=== PATIENT | male | born 1955 | race Two or more races ===

== ENCOUNTER 2023-03-16 08:34 | Outpatient (REF) | payer MEDICARE, SELFPAY ==
[2023-03-16 15:33] LABS: Prostate Specific Antigen 0.31 ng/mL (<0.05-4.0)
== END 2023-03-16 08:35 | disposition home or self-care (01) ==
LOC: HO.CHCLDS 08:34
PROVIDERS: Visit Provider Physician Assistant
DX: Z12.5 Encounter for screening for malignant neoplasm of prostate (principal); C61 Malignant neoplasm of prostate
CPT/HCPCS: 36415; 84153

== ENCOUNTER 2023-06-22 08:56 | Outpatient (REF) | payer MEDICARE, SELFPAY ==
[2023-06-22 15:10] LABS: Prostate Specific Antigen 0.31 ng/mL (<0.05-4.0)
[2023-06-22 15:18] LABS: Influenza A PCR NEGATIVE (Negative); Influenza B PCR NEGATIVE (Negative); Resp Syncy Virus RNA Qual PCR NEGATIVE (Negative); SARS COV2 PCR INHOUSE NEGATIVE (Negative)
== END 2023-06-22 08:57 | disposition home or self-care (01) ==
LOC: HO.CHCLDS 08:56
PROVIDERS: Family Medicine; Visit Provider Physician Assistant
DX: Z11.52 Encounter for screening for COVID-19 (principal); Z12.5 Encounter for screening for malignant neoplasm of prostate; Z20.822 Contact with and (suspected) exposure to COVID-19; J06.9 Acute upper respiratory infection, unspecified
CPT/HCPCS: 0241U; 36415; 84153

== ENCOUNTER 2023-11-08 09:15 | Outpatient (REF) | payer MEDICARE, SELFPAY ==
[2023-11-11 07:38] LABS: TS Negative Control Passed; TS Panel A 0; TS Panel B 0; TS Positive Control Passed; TSpotTB Negative (Negative)
== END 2023-11-08 09:16 | disposition home or self-care (01) ==
LOC: HO.CHCLDS 09:15
PROVIDERS: Visit Provider Family Medicine
DX: Z11.1 Encounter for screening for respiratory tuberculosis (principal)
CPT/HCPCS: 36415; 86481

== ENCOUNTER 2025-02-24 15:03 | Outpatient (AMB) | payer MEDICARE, SELFPAY ==
--- NOTE | 2025-02-24 15:40 | HO.NEPHOV ---
Vital Signs 02/24/25 15:47 Height 5 ft 11 in Weight 188 lb 8 oz BMI 26.3 BP 128/70 Blood Pressure Location Rt brachial Position Sitting Pulse 69 Pulse Source Pulse Oximeter Pulse Oximetry (%) 96 Oxygen Delivery Method Room Air Intake Visit Reasons: Previous Pt- Wrong # Interior Mechanic Required: No Accompanied by: Spouse Allergies No Known Allergies Allergy (Verified 02/19/25 10:10) Do you need a note to return to daycare/school/sports/work: No HPI Comments Details: Lorenzo was seen in follow up for diabetic nephropathy. He was accompanied by his . He has been followed closely followed by Endocrinology. He denies hypoglycemias. He is on ACEI. He is not on any SGLT2 i. He denies CAD, CVA, CHF, PAD, edema or carotid stenosis. He does not take any NSAID's and maintain good hydration. His serum potassium has been high normal. He did not have any specific complaints at the time of this office visit. [facility] Medical History (Updated 03/08/25 @ 14:28 by Tex Lynch MD) Nocturia Erectile dysfunction B12 deficiency Vitamin D deficiency CKD stage G2/A2, GFR 60-89 and albumin creatinine ratio 30-299 mg/g Bronchitis Epididymal cyst Spondylolisthesis at L5-S1 level DJD (degenerative joint disease) BPH (benign prostatic hyperplasia) Anxiety Depression Dyslipidemia GERD (gastroesophageal reflux disease) Gout Hypertension History of prostate cancer Obstructive sleep apnea Type 2 diabetes mellitus Review of Systems Const All systems reviewed & are unremarkable except as noted in HPI and below Physical Exam Vital Signs: Last Vital Signs Pulse 69 02/24/25 15:47 BP 128/70 02/24/25 15:47 Pulse Ox 96 02/24/25 15:47 Oxygen Delivery Method Room Air 02/24/25 15:47 BMI result Body Mass Index 26.3 Const General: comfortable and no acute distress Orientation/consciousness: patient oriented x3 HEENT Head: Yes normocephalic Mouth: Normal oral and palatal mucosa present Eyes EOM: EOMs intact bilaterally Neck Neck: Yes supple Resp Auscultation: clear to auscultation bilaterally Cardio Jugular venous distension: no JVD Rate: regular rate GI Palpation (GI): Soft to palpation Auscultation: normal bowel sounds General: Yes no CVA tenderness Back/Spine/Pelvis Back: no CVA tenderness Skin General skin exam: no rashes or lesions noted Neuro General: patient oriented x3 and moves all extremities Extrem General: Yes no pedal edema Assessment & Plan Assessment & Plan (1) Hypertension: Code(s): I10 - Essential (primary) hypertension Category: Medical Qualifiers: Hypertension type: primary hypertension Qualified Code(s): I10 - Essential (primary) hypertension (2) Diabetic nephropathy: Code(s): E11.21 - Type 2 diabetes mellitus with diabetic nephropathy Category: Medical Qualifiers: Diabetes mellitus type: type 2 Qualified Code(s): E11.21 - Type 2 diabetes mellitus with diabetic nephropathy Plan Lorenzo has Diabetic nephropathy. He is on ACEI. His serum K has been high normal. I plan to initiate him on Jardiance after cutting back on metformin at the next visit. He should maintain good hydration and continue to avoid NSAID's. All these have explained in detail. Follow up labs ordered and answered all questions. Orders: Orders Blood Urea Nitrogen 1 Month E11.21 - Type 2 diabetes mellitus with diabetic nephropathy, I10 - Essential (primary) hypertension Electrolytes 1 Month E11. - Type 2 diabetes mellitus with diabetic nephropathy, I10 - Essential (primary) hypertension Creatinine 1 Month E11.21 - Type 2 diabetes mellitus with diabetic nephropathy, I10 - Essential (primary) hypertension Coding Level of Care Code Est Pt Level 4 (27214) Diagnoses Primary hypertension I10 Hypertension type: primary hypertension Diabetic nephropathy associated with type 2 diabetes mellitus E11.21 Diabetes mellitus type: type 2
[2025-02-24 15:47] VITALS: BP 128/70; PULSE 69; O2SAT 96; BMI 26.3
--- OUTSIDE RECORDS SUMMARY | 2025-02-24 18:18 | XMS_ITS | Encounter Summary ---
Author Organization [employer] Address [address] [place] [address] Care Team Providers Care Tag Marker Name Role Phone Ofe Veras MD Primary Care Provider [phone] Encounter Details Date Type Department Care Team (Late st Contact Info) Description 10/05/2023 Abstract [facility] [address] [place], [place] [id number] Sobeida Self, ILIANA Social History Tobacco Use Types Packs/Day Years Used Date Smoking Tobacco: Never Passive Smoke Exposure: Never Smokeless Tobacco: Never Alcohol Use Standard Drinks/Week Comments Never 0 (1 standard drink = 0.6 oz pur e alcohol) Depression Answer Date Recorded Patient Health Questionnaire-9 Score 0 03/09/2023 Housing Stability Answer Date Recorded What is your housing situation today? I have humphrey finn 06/21/[address] you li ve. Do you have problems with any of the following? None of the above 06/21/2023 Food Insecurity Answer Date Recorded Within the past 12 months, y ou worried that your food would run out before you got money to buy more: Never True 06/21/2023 Within the past 12 months,th e food you bought just didn't last and you didn't have enough money to get more: Never True Transportation Answer Date Recorded In the past 12 months, has l ack of transportation kept you from medical appts, meetings, work or from getting things needed for daily living? No 06/21/2023 Utilities Answer Date Recorded In the past 12 months, has t he electric, gas, oil or water company threatened to shut off services in your home? No 06/21/2023 Depression Answer Date Recorded Patient Health Questionnaire-2 Score 0 03/09/2023 Sex and Gender Information Value Date Recorded Sex Assigned at Male 07/03/2022 10:30 AM EDT Legal Sex Male 10:30 AM EDT Gender Identity Male 07/03/2022 10:30 AM EDT Sexual Orientation Straight 07/03/2022 10 :30 AM EDT documented as of this encounter Plan of Treatment Not on file documented as of this encounter Visit Diagnoses Not on filedocumented in this encounter Additional Health Concerns Assessment Noted Time PHQ-9 Depression Total Score: 0 03/09/20 10:06 AM EDT documented as of this encounter Care Teams Tag Marker Relationship Specialty Start Date End Date Ofe Veras MD [address] [place] [address] PCP - General Family Medicine 12/22/22 02/18/24 documented as of this encounter
== END 2025-02-24 16:26 | disposition home or self-care (01) ==
LOC: HO.HKAS 15:04
PROVIDERS: Visit Provider Internal Medicine Nephrology
DX: I10 Essential (primary) hypertension (principal); E11.21 Type 2 diabetes mellitus with diabetic nephropathy
CPT/HCPCS: 99214

== ENCOUNTER → 2025-02-24 15:03 | Outpatient (BNVA) | payer MEDICARE, SELFPAY | PROVIDERS: Visit Provider Internal Medicine Nephrology | DX: I10 Essential (primary) hypertension (principal); E11.21 Type 2 diabetes mellitus with diabetic nephropathy | CPT/HCPCS: 99212 ==

== ENCOUNTER 2025-04-03 13:13 | Outpatient (AMB) | payer MEDICARE, SELFPAY ==
--- NOTE | 2025-04-03 12:51 | HO.NEPHOV ---
Vital Signs 04/03/25 13:38 Height 5 ft 11 in Weight 191 lb 6 oz BMI 26.7 BP 120/60 Blood Pressure Location Rt brachial Position Sitting Pulse 70 Pulse Source Pulse Oximeter Pulse Oximetry (%) 98 Oxygen Delivery Method Room Air Intake Visit Reasons: 6wk follow up- Wrong # [facility] Magistrate Required: No Accompanied by: Spouse Allergies No Known Allergies Allergy (Verified 04/03/25 13:38) HPI Comments Details: Lorenzo was seen in follow up for diabetic nephropathy and ongoing hyponatremia. He was accompanied by his . He has been followed closely followed by Endocrinology. He denies hypoglycemias, states sugars have been well-controlled. He is on ACEI. He is not on any SGLT2 i. He denies CAD, CVA, CHF, PAD, edema or carotid stenosis. He does not take any NSAID's and maintain good hydration. His serum potassium has been high normal. He did not have any specific complaints at the time of this office visit. states he has been drinking a litte more than 48 ounces of water daily, and then also drinks a few mugs of black coffee each day. He also has been taking naproxen for joint pin in his thumb and ankle. He denies new shortness of breath or other respiratory symptoms, denies new alcohol use, weight loss, fatigue/malaise, night sweats. He does note ongoing pain from joint pain, also has ongoing, chronic rib cage pain for a year or so. [facility] Medical History (Updated 04/03/25 @ 15:14 by Hafsa Mathew, SARAH, MEDICAL ADMINISTRATOR-BC) Nocturia Erectile dysfunction B12 deficiency Vitamin D deficiency CKD stage G2/A2, GFR 60-89 and albumin creatinine ratio 30-299 mg/g Bronchitis Epididymal cyst Spondylolisthesis at L5-S1 level DJD (degenerative joint disease) BPH (benign prostatic hyperplasia) Anxiety Depression Dyslipidemia GERD (gastroesophageal reflux disease) Gout Hypertension History of prostate cancer Obstructive sleep apnea Type 2 diabetes mellitus Review of Systems Const All systems reviewed & are unremarkable except as noted in HPI and below Physical Exam Const General: comfortable and no acute distress Orientation/consciousness: patient oriented x3 HEENT Head: Yes normocephalic Mouth: Normal oral and palatal mucosa present Eyes EOM: EOMs intact bilaterally Neck Neck: Yes supple Resp Auscultation: clear to auscultation bilaterally Cardio Jugular venous distension: no JVD Rate: regular rate GI Palpation (GI): Soft to palpation Auscultation: normal bowel sounds General: Yes no CVA tenderness Back/Spine/Pelvis Back: no CVA tenderness Skin General skin exam: no rashes or lesions noted Neuro General: patient oriented x3 and moves all extremities Extrem General: Yes no pedal edema Assessment & Plan Assessment & Plan (1) Hypertension: Code(s): I10 - Essential (primary) hypertension Category: Medical Qualifiers: Hypertension type: primary hypertension Qualified Code(s): I10 - Essential (primary) hypertension (2) Diabetic nephropathy: Code(s): E11.21 - Type 2 diabetes mellitus with diabetic nephropathy Category: Medical Qualifiers: Diabetes mellitus type: type 2 Qualified Code(s): E11.21 - Type 2 diabetes mellitus with diabetic nephropathy Plan Lorenzo has Diabetic nephropathy. He is on ACEI- advised continue lisinopril at current dose he is taking. His serum K has been high normal. Will cut metformin dose in half and start jardiance 10mg daily for renal protection He should maintain good hydration and continue to avoid NSAID's. Discussed he should cut down on free water intake- discussed total of 48 ounces of water daily, this should include both coffee and water. Advised he should stop taking naproxen, possibility this is stimulating inappropriate ADH release (pain may also be stimulating ADH). Advised to please get labs before next visit- will check urine sodium and urine osm. All these have explained in detail. Follow up labs ordered and answered all questions. Orders: Orders Sodium Urine Random Today E87.1 - Hypo-osmolality and hyponatremia Osmolality Urine 3 Weeks E87.1 - Hypo-osmolality and hyponatremia Basic Metabolic Panel 3 Weeks E87.1 - Hypo-osmolality and hyponatremia, N18.30 - Chronic kidney disease, stage 3 unspecified Medications: New empagliflozin 10 mg PO DAILY 90 tabs 1RF E11.21 - Type 2 diabetes mellitus with diabetic nephropathy, E11.9 - Type 2 diabetes mellitus without complications, N18.30 - Chronic kidney disease, stage 3 unspecified Changed From metformin 1,000 mg PO BID E11.9 - Type 2 diabetes mellitus without complications To metformin 500 mg (1/2 x 1,000 mg) PO BID 90 tabs 3RF 90 days E11.9 - Type 2 diabetes mellitus without complications Coding Level of Care Code Est Pt Level 3 (23308) Diagnoses Primary hypertension I10 Hypertension type: primary hypertension Diabetic nephropathy associated with type 2 diabetes mellitus E11.21 Diabetes mellitus type: type 2
--- OUTSIDE RECORDS SUMMARY | 2025-04-03 13:16 | XMS_ITS | Encounter Summary ---
Author Organization [employer] Address [address] [place] [address] [address] [place] [address] Care Team Providers Care Dental Ceramist Assistant Name Role Phone Ofe Veras MD Primary Care Provider [phone] Encounter Details Date Type Department Care Team (Latest Contact Info) Description 04/01/2019 Abstract [facility] Dental, Provider, DDS Social History Tobacco Use Types Packs/Day Years Used Date Smoking Tobacco: Never Assessed Sex and Gender Information Value Date Recorded Sex Assigned at Male 07/03/2022 10:30 AM EDT Legal Sex Male 10:30 AM EDT Gender Identity Male 07/03/2022 10:30 AM EDT Sexual Orientation Straight 07/03/2022 10 :30 AM EDT documented as of this encounter Plan of Treatment Not on file documented as of this encounter Visit Diagnoses Not on filedocumented in this encounter Care Teams Dental Ceramist Assistant Relationship Specialty Start Date End Date Ofe Veras MD [address] [place] [id number] PCP - General Family Medicine 12/22/22 02/18/24 documented as of this encounter
--- OUTSIDE RECORDS SUMMARY | 2025-04-03 13:16 | XMS_ITS | Patient Health Record ---
Author Organization Aldair Alvarado MD PA Address [address] [facility] [address] [address] [place] [id number] Care Team Providers Care Hot Tar Roofer Helper Name Role Phone Aldair Alvarado Primary Care Provider Allergies No Known Allergies Reason For Referral No Information Medications Medication SIG (Take, Route, Frequency, Duration) Notes Start Date End Date Status Basaglar KwikPen 100 UNIT/ML 10 units SQ at bed time; Duration: 90 days Active glipiZIDE 10 MG 1 tablet 30 minutes before breakfast Orally twice a day; Duration: 90 days Active Naproxen 500 MG TAKE 1 TABLET BY MANUEL TWICE A DAY; Duration: 30 Active Vitamin D-3 25 MCG (1000 UT) 1 capsule Orally Once a day Active FreeStyle Lite Test - one SQ Daily; Duration: 90 days NIDDM E11.65 Active Vitamin D3 2000 UNIT 1 tablet Orally Onc e a day; Duration: 90 days 11/14/2021 Active Insulin Pen Needle 32G X 4 MM one SQ q 6 hour PRN; Duration: 90 days Active Omeprazole 20 MG 1 capsule 30 minutes before morning meal Orally Once a day; Duration: 90 days Active metFORMIN HCl 1000 MG 1 tablet with a me al Orally twice a day; Duration: 90 days Active Lisinopril 10 MG 1 tablet Orally Once a day; Duration: 90 days Active FreeStyle Lancets - one S.Q. Daily; Duration: 90 days Active Tamsulosin HCl 0.4 MG 1 capsule Orally O nce a day; Duration: 90 days Active Simvastatin 20 MG 1 tablet in the evening Orally Once a day; Duration: 90 days Active Problems Problem Type SNOMED Code ICD Code Onset Dates Problem Status W/U Status Risk Notes Problem Erectile dysfunction (disorder) (282988822) Male erectile dysfunction, unspecified (N52.9) Active confirmed Problem Type II diabetes mellitus without complication (640452758) Type 2 diabetes mellitus without complications (E11.9) Active confirmed Problem Essential hypertension (39495823) Essential (primary) hypertension (I10) Active confirmed Problem Mixed hyperlipidemia (537916082) Mixed hyperlipidemia (E78.2) Active confirmed Problem Vitamin D deficiency (28726690) Vitamin D deficiency, unspecified (E55.9) Active confirmed Problem 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) Active confirmed Problem Osteoarthritis of knee (061224066) Bilateral primary osteoarthritis of knee (M17.0) Active confirmed Problem Anxiety disorder (644127187) 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) Active confirmed Problem Lower urinary tract symptoms due to benign prostatic hypertrophy (66813836934003) Benign prostatic hyperplasia with lower urinary tract symptoms (N40.1) Active confirmed Problem Gastro-esophageal reflux disease without esophagitis (375208763) Gastro-esophageal reflux disease without esophagitis (K21.9) Active confirmed Problem Chronic kidney disease stage 3A (disorder) (935158257) Chronic kidney disease, stage 3a (N18.31) Active confirmed Plan Of Treatment Pending Test Test Name Order Date X ray : Ankle, left 11/14/2021 TSH 11/14/2021 Microalb/Creat Ratio, Randm Ur US ABDOMINAL 11/14/2021 BASIC METABOLIC PANEL 11/14/2021 HEMOGLOBIN A1c 11/14/2021 HEMOGLOBIN A1c 11/21/2021 PSA, TOTAL 11/14/2021 CBC (INCLUDES DIFF/PLT) 11/14/2021 LIPID PANEL 11/14/2021 URINALYSIS REFLEX 11/14/2021 LS spine x-ray 11/14/2021 Liver Fuction test (LFT) 11/14/2021 T spine X-Ray 11/14/2021 Occult Blood, Fecal, IA (immunoassay) Insurance Providers Payer Name Payer Address Payer Phone Subscriber Number Group Number Insured Name Patient Relationship to Insured Coverage Start Date Coverage End Date Medicare Part B [address] [place] [phone] [id number] Lorenzo Russo Self - patient is the insured Medical (General) History Medical History History ICD Code Diabetes High cholesterol Hypertension Prostate problems Kidney disease Gout Surgical History Surgery Date(Month/Year) Hospitalization History Reason Date(Month/Year) Radiation for prostate cancer
--- OUTSIDE RECORDS SUMMARY | 2025-04-03 13:16 | XMS_ITS ---
Author Name [facility] Organization Unknown Care Team Organization Name Specialty Phone Email Start Date End Da te [facility] SHEKHAR MERINO [facility] [email or web address]/09/2023 4 [facility] Tabitha Mar Primary Care 07/11/202204/03 4
--- OUTSIDE RECORDS SUMMARY | 2025-04-03 13:16 | XMS_ITS | Clinical Summary ---
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 01/07/20 24 Active aspirin 81 mg EC tablet Take 1 Tablet by mouth daily. 12/05/19 24 Active naproxen (NAPROSYN) 500 mg tablet Take 1 Tablet by mouth 2 times daily (with meals). 10/06/19 23 Active cyanocobalamin (VITAMIN B-12) 1,000 mcg tabletIndicatio ns:B12 deficiency Take 1 tablet (1,000 mcg total) by mouth 1 (one) time each day. 90 each 3 10/24/19 25 026 Active cholecalciferol (VITAMIN D-3) 50 mcg (2,000 unit) tabletIndicatio ns:Vitamin D deficiency Take 1 tablet (2,000 Units total) by mouth 1 (one) time each day. 90 tablet 3 10/24/19 25 02/21/2 026 Active pen needle, diabetic 32 gauge x 32 needleIndicatio ns:Type 2 diabetes mellitus with diabetic microalbuminuri a, with long-term current use of insulin ([facility] V24, [facility] V28) Inject under the skin 1 (one) time each day. DX: E11.29 R80.9 100 each 2 02/04/20 25 Active metFORMIN (GLUCOPHAGE) 1,000 mg tablet Take 1 tablet (1,000 mg total) by mouth 2 (two) times a day with meals. 180 tablet 3 02/07/20 25 Active insulin glargine (Lantus Solostar U-100 Insulin) 100 unit/mL (3 mL) injection pen 10 units SC at [id number] units SC at bedtime 45 mL 3 02/07/20 25 Active freestyle (FreeStyle Lancets) 28 gauge lancets Use to test blood sugar 3 times daily. 300 each 3 02/07/20 25 Active glucose blood test strip Use to test blood sugar 3 times daily. 300 each 3 02/07/20 25 026 Active glipiZIDE (GLUCOTROL) 10 mg tablet Take 1 tabs BID with meals 180 tablet 3 02/07/20 25 Active simvastatin (ZOCOR) 20 mg tabletIndicatio ns:Hyperlipidem ia, unspecified Take 1 tablet (20 mg total) by mouth at bedtime. 90 tablet 1 03/10/20 25 Active lisinopriL (PRINIVIL,ZESTR IL) 10 mg tabletIndicatio ns:Essential (primary) hypertension Take 1 tablet (10 mg total) by mouth 1 (one) time each day. 90 tablet 1 03/10/20 25 Active tamsulosin (FLOMAX) 0.4 mg 24 hr capsule TAKE 1 CAPSULE BY MOUTH 1 TIME EACH DAY. 90 capsule 1 03/10/20 25 Active simvastatin (ZOCOR) 20 mg tabletIndicatio ns:Hyperlipidem ia, unspecified Take 1 tablet (20 mg total) by mouth at bedtime. 90 tablet 1 10/17/19 25 025 Discontinued(Re order) lisinopriL (PRINIVIL,ZESTR IL) 10 mg tabletIndicatio ns:Essential (primary) hypertension Take 1 tablet (10 mg total) by mouth 1 (one) time each day. 90 tablet 1 10/17/19 25 025 Discontinued(Re order) tamsulosin (FLOMAX) 0.4 mg 24 hr capsule Take 2 capsules (0.8 mg total) by mouth 1 (one) time each day. Capsules should be taken 30 minutes following the same meal each day. 90 capsule 02/05/20 25 025 Discontinued Active Problems Problem Noted Date Diagnosed Date DJD (degenerative joint disease) of knee 024 Mixed hyperlipidemia 06/03/2024 HTN (hypertension) 06/03/2024 YISEL (obstructive sleep apnea) 06/03/2024 Overview (06/03/2024): NOT TREATED (Jun 2019) [facility] Home Sleep Apnea Test: Date 05/11/2021; Wt 190#; BMI 28; KHUSHBOO (AHI) 10, AI 4; HI 6; Unclassified apneas 1; Obstructive apneas 20; Central apneas 0; Mixed apneas 0; hypopneas 32; average oxygen saturation 94% (lowest 76% without saturations <88% for 5% or more of study) - Obstructive Sleep Apnea - mild; mostly hypopneas and obstructive apneas; without sleep related hypoventilation by 2020 home sleep apnea test. Assessment & Plan (10/17/2024 12:33 PM EST): Referred to sleep medicine. He will benefit from a CPAP machine given his daytime tiredness/poor sleep. He is advised that treatment for sleep apnea is necessary to prevent complications such as worsening hypertension, neurological problems and respiratory problems. He expressed understanding Orders: CBC and differential; Future Ambulatory referral to Sleep Medicine; Future Spondylolisthesis at L5-S1 level 12/17/2023 BPH (benign prostatic hyperplasia) 07/04/2021 Assessment & Plan (10/17/2024 12:33 PM EST): Continue follow-up with urology group of [facility]. Continue tamsulosin 0.8 mg daily. Recent PSA was within normal limits which was done yesterday. Epididymal cyst 07/04/2021 Overview (06/03/2024): Right, follows w/ urology Dr. Garcia GERD (gastroesophageal reflux disease) Assessment & Plan (10/17/2024 12:33 PM EST): Patient self discontinued famotidine/omeprazole due to lack of symptoms. Will continue to monitor clinically Bronchitis 04/07/2021 CKD stage G2/A2, GFR 60-89 a nd albumin creatinine ratio 30-299 mg/g 02/25/2021 Assessment & Plan (10/17/2024 12:33 PM EST): GFR in Dec was 82. Well controlled Type 2 diabetes mellitus wit h renal complication ([facility] V24, [facility] V28) 02/25/2021 Vitamin D deficiency 06/04/2018 Assessment & Plan (10/17/2024 12:33 PM EST): Continue vitamin D daily Orders: Vitamin D 25 hydroxy; Future B12 deficiency 12/28/2017 Assessment & Plan (10/17/2024 12:33 PM EST): Will update labs to determine if he needs to continue/resume B12 supplements Orders: Vitamin B12; Future Depression with anxiety 01/12/2015 Erectile dysfunction 09/21/2014 Nocturia 09/21/2014 Type 2 diabetes mellitus wit h microalbuminuria ([facility] V24, [facility] V28) 09/21/2014 Assessment & Plan (10/17/2024 12:33 PM EST): Continue endocrinology follow-up. Continue metformin 1000 mg twice daily, glipizide 10 mg twice daily, insulin Lantus 10 units. He will return for repeat A1c next month. His last A1c in August was slightly elevated to 7.4 He has a history of microalbuminuria however there was no microalbuminuria on most recent testing done in August. Orders: Hemoglobin A1c; Future Resolved Problems Problem Noted Date Diagnosed Date Resolved Date Rectal bleed 03/23/2016 10/17/2024 Gout 10/08/2014 10/17/2024 Anxiety 09/21/2014 10/17/2024 Encounters Date Type Department Care Team Description 02/06/2025 9:30 AM EDT Office Visit Endocrinology [address] [phone] [place] Type 2 diabetes mellitus with other kidney complication, unspecified whether jail insulin use ([facility] V24, [facility] V28) (Primary Dx); Secondary hypertension; Mixed hyperlipidemia from Last 3 Months Immunizations Name Administration Dates Next Due Influenza Quadravalent, MDCK , 0.5ml, preservative free (Flucelvax) 6mo and older 09/18/2019,06/03/2018 Influenza trivalent, 0.5mL ( Fluzone High-dose) 65yo and older 08/01/2024,07/25/2023,06/05/2022,2020 Influenza trivalent, with preservative (Fluzone; Afluria) 6mo and older 07/30/2017,09/16/2014 Influenza, Unspecified 06/26/2022,2020,05/18/2016,2014 PPD Test 10/09/2018 [employer] SARS-CoV-2 COVID-19, mRNA, LNP-S, preservative free 12/29/2020,11/29/2020 Pneumococcal conjugate 13 va lent (Prevnar 13, PCV13) 2mo and older 06/22/2021,12/15/2015 Pneumococcal conjugate 20 va lent (Prevnar 20, PCV 20) 2mo and older 03/14/2024 Td Tetanus diptheria (Tdvax) 7yo and older 10/09/2018 Tdap Tetanus diptheria acell ular pertussis (Boostrix; Adacel) 7yo and older 04/14/2017 Zoster Live 01/19/2016 Surgical History Surgery Date Site/Laterality Comments OTHER SURGICAL HISTORY PROCEDURE: IL RPR TUNICA VAGINALIS HYDROCELE BOTTLE TYPE; COMMENT: right testicle HERNIA REPAIR PROCEDURE: HISTORICAL HERNIA REPAIR/ING; COMMENT: bilateral KNEE SURGERY Right PROCEDURE: HISTORICAL KNEE SURGERY OTHER SURGICAL HISTORY PROCEDURE: HISTORICAL ARM SURGERY COLONOSCOPY 2011 PROCEDURE: HISTORICAL COLONOSCOPY; COMMENT: Date approximate, negative examination performed in [place] by history. COLONOSCOPY 07/31/2016 PROCEDURE: HISTORICAL COLONOSCOPY; COMMENT: Mild radiation proctitis. CHOLECYSTECTOMY 01/08/2018 PROCEDURE: LAPAROSCOPY, CHOLECYSTECTOMY Medical History Medical History Date Comments Dyslipidemia DX:Dyslipidemia HTN (hypertension) DX:HTN (hyper tension) Anxiety 09/21/2014 DX:Anxiety Nocturia 09/21/2014 DX:Nocturia Erectile dysfunction 09/21/2014 DX:Erectile dysfunction Hypertriglyceridemia 09/21/2014 DX:Hypertri glyceridemia DM (diabetes mellitus), type 2 with peripheral vascular complications ([facility], [facility]) 09/21/2014 DX:DM (diabetes mellitus), type 2 with peripheral vascular complications (HCC) Gout 10/08/2014 DX:Gout DJD (degenerative joint disease) of knee DX:DJD (degenerative joint disease) of knee YISEL (obstructive sleep apnea) DX :YISEL (obstructive sleep apnea) Bronchitis 04/07/2021 DX:Bronchitis GERD (gastroesophageal reflux disease) DX:GERD (gastroesophageal reflux disease) BPH (benign prostatic hyperplasia) 07/04/2021 DX:BPH (benign prostatic hyperplasia) B12 deficiency 12/28/2017 DX:B12 deficienc y CKD (chronic kidney disease) stage 3, GFR 30-59 ml/min ([facility], [facility] V[facility]) 02/25/2021 DX:CKD (chroni c kidney disease) stage 3, GFR 30-59 ml/min ([facility]) Depression with anxiety 01/12/2015 DX:Depre ssion with anxiety Normocytic anemia 01/19/2017 DX:Normocytic anemia 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 Garcia Rectal bleed 03/23/2016 Family History Medical History Relation Name Comments Prostate cancer Father Cataracts Mother Diabetes Mother Glaucoma Mother Skin cancer Mother Blindness Neg Hx Colon cancer Neg Hx Macular degeneration Neg Hx Strabismus Neg Hx Relation Name Status Comments Father Maternal Grandfather Maternal Grandmother Mother Paternal Grandfather Paternal Grandmother Social History Tobacco Use Types Packs/Day Years Used Date Smoking Tobacco: Never Smokeless Tobacco: Never Alcohol Use Standard Drinks/Week Comments No 0 (1 standard drink = 0.6 oz pur e alcohol) Housing Instability Answer Date Recorde d Are you worried that in the next 2 months you may not have stable housing? No 10/17/2024 Food Access & Nutrition Answer Date Rec orded Do you have access to a vari ety of food including fruits and vegetables? No 10/17/2024 Health Literacy Answer Date Recorded How often do you need to hav e someone help you when you read instructions, pamphlets, or other written material from your doctor or pharmacy? Never 10/17/2024 Caregiver: How often do you need to have someone help you when you read instructions, pamphlets, or other written material from your doctor or pharmacy? Not on file 10/17/2024 Financial Risk Answer Date Recorded How hard is it for you to pa y for the very basics like food, housing, medical care, and air conditioning / heating? Not very hard 10/17/2024 Transportation Answer Date Recorded Has the lack of transportati on kept you from meetings, work, or from getting things needed for daily living? No Has the lack of transportati on kept you from medical appointments or from getting medications? No 10/17/2024 Social Isolation Answer Date Recorded How often do you feel lonely or isolated from th ose around you? Never 10/17/2024 Food Risk Answer Date Recorded Within the past 12 months we worried whether our food would run out before we got money to buy more. Never true 10/17/2024 Within the past 12 months th e food we bought just didn't last and we didn't have money to get more. Never true 10/17/2024 Dependent Care Answer Date Recorded Do you need help finding or paying for care for your loved ones. For example, childbirth and infant care teacher or elderly care for an older adult? No 10/17/2024 Education Answer Date Recorded Do you think completing more education or training, like finishing a GED, going to college, or learning a trade, would be helpful for you? No 10/17/2024 Employment and Income Answer Date Recor ded During the last four weeks, have you been actively looking for work? No 10/17/2024 Living Situation Answer Date Recorded What is your living situation? 0 10/17/2024 Sex and Gender Information Value Date Recorded Sex Assigned at Male 09/05/2024 5:56 PM EST Legal Sex Male 11:12 AM EST Gender Identity Male 09/05/2024 5:56 PM EST Sexual Orientation Straight 09/05/2024 5: 56 PM EST Obstetrics History Last Filed Vital Signs Vital Sign Reading Time Taken Comments Blood Pressure 118/64 02/06/2025 9:59 AM EDT C Pulse 67 02/06/2025 9:59 AM EDT Temperature 36.4 C (97.5 F) 02/06/2025 9:59 AM EDT Respiratory Rate 17 10/17/2024 8:56 AM EST Oxygen Saturation 97% 08/08/2024 10:09 AM EST Inhaled Oxygen Concentration - - Weight 84.6 kg (186 lb 9.6 oz) 02/06/2025 9:59 A M EDT Height 180.3 cm (5' 11 ) 02/06/2025 9:59 AM EDT Body Mass Index 26.03 02/06/2025 9:59 AM EDT Plan of Treatment Upcoming Encounters Date Type Department Care Team (Late st Contact Info) Description 04/29/2025 2:30 PM EDT Office Visit Adult Medicine [address] [phone] Susan Graves PA [address] [place] [address] 05/26/2025 9:30 AM EDT Office Visit Orthopedic Surgery [facility] [address] [phone] Jarret Mcdowell, DPM [address] [address] Health Maintenance Due Date Last Done Comments Zoster Vaccines (1 of 2) 03/15/2016 01/19/2016 Medicare Annual Wellness Visit 08/12/2022 Falls Risk Assessment 03/14/2025 03/14/2024 Influenza Vaccine (#1) 2025 , 07/25/2023, 06/26/2022, Additional history exists Diabetes: Annual Foot Exam 06/17/2025 06/17/2024 Diabetes: Annual Retina Eye Exam 07/22/2025 07/22/2024, 08/15/2023 Diabetes: Blood Sugar Control Test (HGBA1C) 08/08/2025 02/06/2025, 08/15/2024, 06/16/2024, Additional history exists Social Influencers of Health Screening 10/17/2025 10/17/2024 Diabetes: Annual Urine Albumin-Creatinine Ratio (uACR) 02/06/2026 02/06/2025, 08/15/2024, 12/07/2023, Additional history exists Diabetes: Annual GFR (Glomerular Filtration Rate) 03/27/2026 03/27/2025, 02/06/2025, 08/15/2024, Additional history exists Hypertension/CHF/CAD Annual BMP Blood Test 03/27/2026 03/27/2025, 02/06/2025, 08/15/2024, Additional history exists Colorectal Cancer Screening: FIT-DNA (Cologuard) 08/02/2026 08/02/2023, 08/02/2023 DTaP,Tdap,and Td Vaccines (3 - Td or Tdap) 10/09/2028 10/09/2018, 04/14/2017 Cholesterol Screening (Lipid Panel) 02/06/2030 02/06/2025, 08/15/2024, 12/07/2023, Additional history exists Hepatitis C Screening Completed 09/17/2014 COVID-19 Vaccine Discontinued 12/29/2020, 11/29/2020 Pneumococcal Vaccine: 50+ Years Completed 03/14/2024, 06/22/2021, 12/15/2015 Depression Screening Completed 10/17/2024 HIB Vaccines Aged Out No longer eligi ble based on patient's age to complete this topic HPV Vaccines Aged Out No longer eligi ble based on patient's age to complete this topic Hepatitis A Vaccines Aged Out No long er eligible based on patient's age to complete this topic Hepatitis B Vaccines Aged Out No long er eligible based on patient's age to complete this topic IPV Vaccines Aged Out No longer eligi ble based on patient's age to complete this topic MMR Vaccines Aged Out No longer eligi ble based on patient's age to complete this topic Meningococcal ACWY Vaccine Aged Out N o longer eligible based on patient's age to complete this topic Meningococcal B Vaccine Aged Out No l onger eligible based on patient's age to complete this topic RSV Immunization Adult Patients Discontinued RSV Immunization Patients Under 20 months Aged Out No longer eligible based on patient's age to complete this topic Varicella Vaccines Aged Out No longer eligible based on patient's age to complete this topic Procedures Procedure Name Priority Date/Time Associated Diagnosis Comments CREATININE, SERUM Routine 03/27/2025 1:4 7 PM EDT Diabetic kidney ([facility], [facility] V28) Primary hypertension ELECTROLYTE PANEL Routine 03/27/2025 1:4 7 PM EDT Diabetic kidney ([facility] V24, [facility] V28) Primary hypertension BUN Routine 03/27/2025 1:47 PM EDT Diabetic kidney ([facility], [facility] V28) Primary hypertension THYROXINE FREE Routine 02/20/2025 8:06 AM EDT Hyponatremia THYROID STIMULATING HORMONE Routine 02/20/2025 8:06 AM EDT Hyponatremia ACTH Routine 02/20/2025 8:06 AM EDT Hyponatremia CORTISOL Routine 02/20/2025 8:06 AM EDT Hyponatremia SODIUM Routine 02/17/2025 10:44 AM EDT Low sodium levels CBC WITH AUTO DIFFERENTIAL Routine 02/06/2025 10:26 AM EDT YISEL (obstructive sleep apnea) CBC AND DIFFERENTIAL Routine 02/06/2025 10:26 AM EDT YISEL (obstructive sleep apnea) HEMOGLOBIN A1C Routine 02/06/2025 10:26 AM EDT Type 2 diabetes mellitus with other kidney complication, unspecified whether terminal system operator insulin use ([facility], [facility] V28) BASIC METABOLIC PANEL Routine 02/06/2025 10:26 AM EDT Type 2 diabetes mellitus with other kidney complication, unspecified whether jail insulin use ([facility], [facility] V28) LIPID PANEL WITH REFLEX TO DIRECT LDL Routine 02/06/2025 10:26 AM EDT Type 2 diabetes mellitus with other kidney complication, unspecified whether jail insulin use ([facility], [facility] V28) MICROALBUMIN CREATININE URINE RATIO Routine 02/06/2025 10:26 AM EDT Type 2 diabetes mellitus with other kidney complication, unspecified whether terminal system operator insulin use ([facility], [facility] V28) POC GLUCOSE Routine 02/06/2025 10:02 AM EDT Type 2 diabetes mellitus with other kidney complication, unspecified whether terminal system operator insulin use ([facility], [facility]) FALLS RISK ASSESSMENT Routine 03/14/2024 DIABETES EYE EXAM Routine 08/15/2023 FIT-DNA Routine 08/02/2023 HEPATITIS C SCREENING Routine 09/17/2014 from Last 3 Months or Most Recently Relevant to Health Maintenance Results * Creatinine (03/27/2025 1:47 PM EDT) Creatinine 1.14 0.70 - 1.30 mg/dL LAB CHEMISTRY METHOD 03/27/2025 5:36 PM EDT [facility] eGFR 69 >=60 mL/min/1. 73m2 LAB CHEMISTRY METHOD 03/27/2025 5:36 PM EDT [facility] Comment:Calculation based on the Chronic Kidney Disease Epidemiology Collaboration (CKD-EPI) equation refit without adjustment for race. Blood Venous blood specimen / Unknown Venipuncture / Unknown 03/27/2025 1:47 PM EDT 03/27/2025 2:50 PM EDT us Tex Lynch MD LAB BLOOD ORDERABLES Final Resul t Performing Organization Address [facility]/ZIP Co de Phone Number [facility] [address] [place] [address], [place] [phone] * BUN (03/27/2025 1:47 PM EDT) BUN 21 5 - 25 mg/dL LAB CHEMISTRY METHOD 03/27/2025 5:36 PM EDT [facility] Blood Venous blood specimen / Unknown Venipuncture / Unknown 03/27/2025 1:47 PM EDT 03/27/2025 2:50 PM EDT us Tex Lynch MD LAB BLOOD ORDERABLES Final Resul t Performing Organization Address [facility] de Phone Number [facility] [address] [place] [address], [place] [phone] * (ABNORMAL) Electrolyte panel (03/27/2025 1:47 PM EDT) Sodium 130(L) 133 - 145 mmol/L LAB CHEMISTRY METHOD 03/27/2025 5:36 PM EDT [facility] Potassium 4.4 3.5 - 5.5 mmol/L LAB CHEMISTRY METHOD 03/27/2025 5:36 PM EDT [facility] Chloride 96 96 - 110 mmol/L LAB CHEMISTRY METHOD 03/27/2025 5:36 PM EDT [facility] CO2 26 21 - 32 mmol/L LAB CHEMISTRY METHOD 03/27/2025 5:36 PM EDT [facility] Anion Gap 8 3 - 11 LAB CHEMISTRY METHOD 03/27/2025 5:36 PM EDT [facility] Blood Venous blood specimen / Unknown Venipuncture / Unknown 03/27/2025 1:47 PM EDT 03/27/2025 2:50 PM EDT us Tex Lynch MD LAB BLOOD ORDERABLES Final Resul t Performing Organization Address City/[facility]/ZIP Co de Phone Number [facility] [address] [place] [address], [place] [phone] * ACTH (02/20/2025 8:06 AM EDT) Adrenocorticotropic Hormone (ACTH) 10 <=46 pg/mL 02/23/2025 3:48 PM EDT [facility] Comment: Test performed at [facility], [address] , [place] [address] Yancy Hall MD, PhD - [employer] Consultant Blood Venous blood specimen / Unknown Venipuncture / Unknown 02/20/2025 8:06 AM EDT 02/20/2025 8:21 AM EDT Fili Titus MD LAB BLOOD ORDERABLES Final Res ult Performing Organization Address [facility]/ZIP Co de Phone Number [facility] [address] [place] [address] * Thyroid stimulating hormone (02/20/2025 8:06 AM EDT) Pathologist [facility] TSH 1.58 0.40 - 4.00 mcIU/mL LAB CHEMISTRY METHOD 02/20/2025 10:10 AM EDT [facility] Blood Venous blood specimen / Unknown Venipuncture / Unknown 02/20/2025 8:06 AM EDT 02/20/2025 8:20 AM EDT Fili Titus MD LAB BLOOD ORDERABLES Final Res ult [facility] [address] [place] [address], [place] [phone] * Thyroxine free (02/20/2025 8:06 AM EDT) Free T4 1.17 0.70 - 1.80 ng/dL LAB CHEMISTRY METHOD 02/20/2025 10:10 AM EDT [facility] Blood Venous blood specimen / Unknown Venipuncture / Unknown 02/20/2025 8:06 AM EDT 02/20/2025 8:20 AM EDT Fili Titus MD LAB BLOOD ORDERABLES Final Res ult Performing Organization Address [facility]/ZIP Co de Phone Number [facility] [address] [place] [address], [place] [phone] * Cortisol (02/20/2025 8:06 AM EDT) Cortisol 14.5 mcg/dL LAB CHEMISTRY METHOD 02/20/2025 10:10 AM EDT [facility] Blood Venous blood specimen / Unknown Venipuncture / Unknown 02/20/2025 8:06 AM EDT 02/20/2025 8:20 AM EDT Narrative [facility] - 02/20/2025 10:10 AM EDT CORTISOL REFERENCE RANGE 8 AM SPEC: 5.0-23.0 mcg/dL 4 PM SPEC: 3.0-16.0 mcg/dL 8 PM SPEC: <5.0 mcg/dL Fili Titus MD LAB BLOOD ORDERABLES Final Res ult Performing Organization Address City/[facility]/ZIP Co de Phone Number [facility] [address] [place] [address], [place] [phone] * (ABNORMAL) Sodium (02/17/2025 10:44 AM EDT) Sodium 130(L) 133 - 145 mmol/L LAB CHEMISTRY METHOD 02/17/2025 2:35 PM EDT [facility] Blood Venous blood specimen / Unknown Venipuncture / Unknown 02/17/2025 10:44 AM EDT 02/17/2025 10:44 AM EDT Gaby CANAS LAB BLOOD ORDERABLES Final Result [facility] [address] [place] [address], [place] [phone] * Lipid panel with reflex to direct LDL (02/06/2025 10:26 AM EDT) Cholesterol 138 0 - 200 mg/dL LAB CHEMISTRY METHOD 02/06/2025 2:29 PM EDT [facility] Triglycerides 139 0 - 150 mg/dL LAB CHEMISTRY METHOD 02/06/2025 2:29 PM EDT [facility] HDL 43 >=40 mg/dL LAB CHEMISTRY METHOD 02/06/2025 2:29 PM EDT [facility] LDL Calculated 67 0 - 100 mg/dL LAB CHEMISTRY METHOD 02/06/2025 2:29 PM EDT [facility] VLDL Cholesterol [place] 27.8 mg/dL LAB CHEMISTRY METHOD 02/06/2025 2:29 PM EDT [facility] Non HDL Chol. (LDL+VLDL) 95 <145 mg/dL LAB CHEMISTRY METHOD 02/06/2025 2:29 PM EDT [facility] Chol/HDL Ratio 3.2 0.0 - 4.4 LAB CHEMISTRY METHOD 02/06/2025 2:29 PM EDT [facility] Blood Venous blood specimen / Unknown Venipuncture / Unknown 02/06/2025 10:26 AM EDT 02/06/2025 10:26 AM EDT Gaby CANAS LAB BLOOD ORDERABLES Final Result [facility] [address] [place] [address], [place] [phone] * (ABNORMAL) CBC auto differential (02/06/2025 10:26 AM EDT) WBC 6.1 4.8 - 10.8 K/mcL LAB HEMETOLOGY METHOD 02/06/2025 12:23 PM [facility] RBC 4.80 4.50 - 5.50 M/mcL LAB HEMETOLOGY METHOD 02/06/2025 12:23 PM [facility] Hemoglobin 13.9 13.5 - 17.5 g/dL LAB HEMETOLOGY METHOD 02/06/2025 12:23 PM [facility] Hematocrit 41.7(L) 42.0 - 54.0 % LAB HEMETOLOGY METHOD 02/06/2025 12:23 PM [facility] MCV 87.4 79.0 - 98.0 FL LAB HEMETOLOGY METHOD 02/06/2025 12:23 PM [facility] MCH 29.1 27.0 - 32.0 pcg LAB HEMETOLOGY METHOD 02/06/2025 12:23 PM [facility] MCHC 33.3 32.0 - 37.0 g/dL LAB HEMETOLOGY METHOD 02/06/2025 12:23 PM [facility] RDW 13.0 11.0 - 15.0 % LAB HEMETOLOGY METHOD 02/06/2025 12:23 PM [facility] Platelets 250 130 - 400 K/mcL LAB HEMETOLOGY METHOD 02/06/2025 12:23 PM [facility] MPV 9.2 7.0 - 11.0 FL LAB HEMETOLOGY METHOD 02/06/2025 12:23 PM [facility] NRBC 0.0 <1.0 % LAB HEMETOLOGY METHOD 02/06/2025 12:23 PM [facility] NRBC Absolute 0.00 <0.10 K/mcL LAB HEMETOLOGY METHOD 02/06/2025 12:23 PM [facility] Neutrophils Relative 70.3 % LAB HEMETOLOGY METHOD 02/06/2025 12:23 PM [facility] Lymphocytes Relative 20.3 % LAB HEMETOLOGY METHOD 02/06/2025 12:23 PM [facility] Monocytes Relative 8.2 % LAB HEMETOLOGY METHOD 02/06/2025 12:23 PM [facility] Eosinophils Relative 0.7 % LAB HEMETOLOGY METHOD 02/06/2025 12:23 PM [facility] Basophils Relative 0.3 % LAB HEMETOLOGY METHOD 02/06/2025 12:23 PM [facility] Immature Granulocytes Relative 0.2 % LAB HEMETOLOGY METHOD 02/06/2025 12:23 PM [facility] Neutrophils Absolute 4.30 1.50 - 7.00 K/mcL LAB HEMETOLOGY METHOD 02/06/2025 12:23 PM [facility] Lymphocytes Absolute 1.24 1.00 - 5.00 K/mcL LAB HEMETOLOGY METHOD 02/06/2025 12:23 PM [facility] Monocytes Absolute 0.50 0.20 - 1.00 K/mcL LAB HEMETOLOGY METHOD 02/06/2025 12:23 PM [facility] Eosinophils Absolute 0.04 0.00 - 0.50 K/mcL LAB HEMETOLOGY METHOD 02/06/2025 12:23 PM [facility] Basophils Absolute 0.02 0.00 - 0.20 K/mcL LAB HEMETOLOGY METHOD 02/06/2025 12:23 PM [facility] Immature Granulocytes Absolute 0.01 0.00 - 0.03 K/mcL LAB HEMETOLOGY METHOD 02/06/2025 12:23 PM [facility] Blood Venous blood specimen / Unknown Venipuncture / Unknown 02/06/2025 10:26 AM EDT 02/06/2025 10:26 AM EDT Jelena Olsen MD LAB BLOOD ORDERA BLES Final Result Performing Organization Address [facility]/ZIP Co de Phone Number [facility] [address] [place] [address], * (ABNORMAL) Microalbumin creatinine urine ratio (02/06/2025 10:26 AM EDT) Creatinine, Urine 137.0 mg/dL LAB CHEMISTRY METHOD 02/06/2025 1:31 PM EDT [facility] Microalb, Ur 119.0(H) 0.0 - 29.0 mg/L LAB CHEMISTRY METHOD 02/06/2025 1:31 PM EDT [facility] Microalb/Crea t Ratio 87(H) <30 mg/g creat LAB CHEMISTRY METHOD 02/06/2025 1:31 PM EDT [facility] Urine Urine specimen from urethra / Unknown Non-blood Collection / Unknown 02/06/2025 10:26 AM EDT 02/06/2025 10:26 AM EDT Gaby CANAS LAB URINE ORDERABLES Final Result Performing Organization Address [facility]/ZIP Co de Phone Number [facility] [address] [place] [address], [place] [phone] * (ABNORMAL) Hemoglobin A1c (02/06/2025 10:26 AM EDT) Hemoglobin A1C 7.0(H) <6.5 % LAB CHEMISTRY METHOD 02/06/2025 9:29 PM EDT [facility] Mean Bld Glu Estim. 154 mg/dL LAB CHEMISTRY METHOD 02/06/2025 9:29 PM EDT [facility] Blood Venous blood specimen / Unknown Venipuncture / Unknown 02/06/2025 10:26 AM EDT 02/06/2025 10:26 AM EDT us Gaby CANAS LAB BLOOD ORDERABLES Final Result [facility] [address] [place] [address], [place] [phone] * (ABNORMAL) Basic metabolic panel (02/06/2025 10:26 AM EDT) Pathologist [facility] Sodium 132(L) 133 - 145 mmol/L LAB CHEMISTRY METHOD 02/06/2025 2:29 PM [facility] Potassium 4.6 3.5 - 5.5 mmol/L LAB CHEMISTRY METHOD 02/06/2025 2:29 PM [facility] Chloride 100 96 - 110 mmol/L LAB CHEMISTRY METHOD 02/06/2025 2:29 PM [facility] CO2 23 21 - 32 mmol/L LAB CHEMISTRY METHOD 02/06/2025 2:29 PM [facility] Anion Gap 9 3 - 11 LAB CHEMISTRY METHOD 02/06/2025 2:29 PM [facility] Glucose 127(H) 70 - 100 mg/dL LAB CHEMISTRY METHOD 02/06/2025 2:29 PM [facility] BUN 15 5 - 25 mg/dL LAB CHEMISTRY METHOD 02/06/2025 2:29 PM [facility] Creatinine 1.08 0.70 - 1.30 mg/dL LAB CHEMISTRY METHOD 02/06/2025 2:29 PM [facility] eGFR 74 >=60 mL/min/1. 73m2 LAB CHEMISTRY METHOD 02/06/2025 2:29 PM [facility] Comment:Calculation based on the Chronic Kidney Disease Epidemiology Collaboration (CKD-EPI) equation refit without adjustment for race. BUN/Creatinine Ratio 13.9 LAB CHEMISTRY METHOD 02/06/2025 2:29 PM EDT [facility] Calcium 9.7 8.5 - 10.5 mg/dL LAB CHEMISTRY METHOD 02/06/2025 2:29 PM EDT [facility] Blood Venous blood specimen / Unknown Venipuncture / Unknown 02/06/2025 10:26 AM EDT 02/06/2025 10:26 AM EDT Gaby CANAS LAB BLOOD ORDERABLES Final Result [facility] [address] [place] [address], [place] [phone] * POC glucose manually resulted (02/06/2025 10:02 AM EDT) [facility] Glucose POC 131 mg/dL Comment:Non Fasting Blood Capillary blood specimen / Unknown 02/06/2025 10:02 AM EDT Result [facility] Gaby CANAS POINT OF CARE TEST ENTER/ED IT ORDERABLES Final Result * Falls Risk Assessment (03/14/2024) [facility] Falls Risk Assessment Abstracted Result [facility] Historical Provider HEALTH MAINTENANCE Final Result * Diabetes Eye Exam (08/15/2023) [facility] Diabetes: Annual Retina Eye Exam AbstractedAbstracted Result [facility] Historical Provider HEALTH MAINTENANCE Final Result * FIT-DNA (Cologuard) (08/02/2023) [facility] Colorectal Cancer Screening: FIT-DNA (Cologuard) No Interpretatio n, Abstraced Result [facility] Historical Provider HEALTH MAINTENANCE Final Result * Hepatitis C Screening (09/17/2014) [facility] Hepatitis C Screening Abstracted Result [facility] Historical Provider HEALTH MAINTENANCE Final Result from Last 3 Months or Most Recently Relevant to Health Maintenance Insurance [employer] MEDICARE [employer]VANTAGE 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
--- OUTSIDE RECORDS SUMMARY | 2025-04-03 13:16 | XMS_ITS | Clinical Summary ---
Author Organization [facility] Address [address] [place] [address] Phone Care Team Providers Care Global Process Owner Name Role Phone Ofe Veras MD Primary Care Provider [phone] Allergies No known active allergies Medications cholecalciferol (VITAMIN D-3) 25 MCG (1000 UT) tablet Take 1 tablet by mouth 1 (one) time each day 11/02/2020 Active omeprazole (PriLOSEC) [address] capsule Take 1 capsule by mouth 2 (two) times a day 09/27/2020 Active tamsulosin (FLOMAX) 0.4 MG 24 hr capsule Take 1 capsule by mouth 1 (one) time each day 11/09/2020 Active insulin glargine (Lantus SoloStar) 100 UNIT/ML injection Inject 10 Units under the skin every night 08/04/2020 Active aspirin (ST SHIRLEY) 81 MG EC tablet Take 1 tablet by mouth 1 (one) time each day 08/04/2020 Active lisinopril (PRINIVIL,ZESTR IL) 10 MG tablet Take 1 tablet by mouth 1 (one) time each day 11/09/2020 Active metFORMIN (GLUCOPHAGE) 1000 MG tablet Take 1 tablet by mouth 2 (two) times a day with meals 11/09/2020 Active simvastatin (ZOCOR) 20 MG tablet Take 1 tablet by mouth 1 (one) time each day in the evening 11/09/2020 Active Dulaglutide (Trulicity) 1.5 MG/0.5ML solution pen-injector Inject under the skin Active Active Problems Problem Noted Date Diagnosed Date History of SARS-CoV-2 10/14/2021 Overview (03/30/2022): DX: 09/2021. Benign prostatic hyperplasia 07/04/2021 Cyst of epididymis 07/04/2021 Overview (03/30/2022): Right, follows w/ urology Dr. Garcia Gastroesophageal reflux disease 07/04/2021 Bronchitis 04/07/2021 Stage 3a chronic kidney disease 03/09/2021 Hypertension 03/09/2021 Simple renal cyst 03/09/2021 Hypertensive disorder 01/18/2021 Obstructive sleep apnea syndrome 01/18/2021 Overview (03/30/2022): NOT TREATED (Jun 2019) NOT TREATED (Jun 2019) [facility] Home Sleep Apnea Test: Date [...] hypoventilation by 2020 home sleep apnea test. Chronic kidney disease 01/18/2021 Type 2 diabetes mellitus 09/21/2014 Resolved Problems Problem Noted Date Diagnosed Date Resolved Date Dyslipidemia 01/18/2021 01/18/2021 Osteoarthritis of knee 01/18/202101/18 Vitamin D deficiency 06/04/2018 021 Cobalamin deficiency 12/28/2017 021 Normocytic anemia 01/19/2017 01/18/2021 History of malignant neoplasm of prostate 08/08/2016 01/18/2021 Rectal hemorrhage 03/23/2016 01/18/2021 Mixed anxiety and depressive disorder 01/12/2015 01/18/2021 Gout 10/08/2014 01/18/2021 Anxiety 09/21/2014 01/18/2021 Erectile dysfunction 09/21/2014 021 Nocturia 09/21/2014 01/18/2021 Immunizations Immunization Administration Dates Next Due Influenza TIV (IM) 07/30/2017,09/16/2014 Influenza, MDCK, PF, Quadrivalent 09/18/2019,09/2017 Influenza, Unspecified 05/25/2021,05/18/2016,04/2015 PPD Test 10/09/2018 Pfizer SARS-COV-2 12/29/2020,11/29/2020 Pneumococcal Conjugate 13-Valent 06/22/2021,12/02 Td 10/09/2018 Zoster 01/19/2016 Family History Medical History Relation Comments Cancer Brother Prostate cancer Cancer Father Prostate cancer Hypertension Father Diabetes Mother Heart disease Mother Relation Status Comments Brother Father Mother Social History Tobacco Use Types Packs/Day Years Used Date Smoking Tobacco: Never Smokeless Tobacco: Never Tobacco Cessation:Counseling Given: Not Answered Alcohol Use Standard Drinks/Week Comments Never 0 (1 standard drink = 0.6 oz pur e alcohol) Sex and Gender Information Value Date Recorded Sex Assigned at Not on file Legal Sex Male 9:40 AM EDT Gender Identity Not on file Sexual Orientation Not on file Last Filed Vital Signs Vital Sign Reading Time Taken Comments Blood Pressure 120/60 05/08/2023 3:30 PM EDT Pulse 86 05/08/2023 3:30 PM EDT Temperature - - Respiratory Rate - - Oxygen Saturation 97% 03/09/2021 10:17 AM EDT Inhaled Oxygen Concentration - - Weight 82.6 kg (182 lb 3.2 oz) 05/08/2023 3:30 P M EDT Height - - Body Mass Index - - Plan of Treatment Health Maintenance Due Date Last Done Comments Colorectal Cancer Screening: Annual FOBT 2003 Colorectal Cancer Screening: Colonoscopy 2003 Colorectal Cancer Screening: Sigmoidoscopy 2003 Diabetes: Ophthalmology Exam 12/08/2020 01/03/2017, 10/27/2015, 10/01/2014 Diabetes: Pedal Pulse Checked 12/08/2020 Diabetes: Sensory Foot Exam 12/08/2020 Diabetes: Visual Foot Exam 12/08/2020 Pneumococcal Vaccine: 50+ Years (2 of 2 - PPSV23, PCV20, or PCV21) 08/17/2021 06/22/2021, 12/15/2015 Influenza Vaccine (#1) 2025 4, 07/25/2023, 06/26/2022, Additional history exists Diabetes: Hemoglobin A1C 05/09/2025 025, 11/21/2023, 02/28/2022, Additional history exists Pneumococcal Vaccine: Peds (0 to 5 Years) and At-Risk Patients (6 to 49 Years) Discontinued 06/22/2021, 12/15/2015 Hepatitis B Vaccine Aged Out No longe r eligible based on patient's age to complete this topic Insurance [facility] MCR ([id number]) [facility] MCR ([id number]) Care Teams Global Process Owner Relationship Specialty Start Date End Date Ofe Veras MD [address] [place] [id number] PCP - General Family Medicine 05/08/23
[2025-04-03 13:38] VITALS: BP 120/60; PULSE 70; O2SAT 98; BMI 26.7
== END 2025-04-03 14:01 | disposition home or self-care (01) ==
LOC: HO.HKA 13:14
PROVIDERS: Visit Provider Internal Medicine Nephrology
DX: I10 Essential (primary) hypertension (principal); E11.21 Type 2 diabetes mellitus with diabetic nephropathy
CPT/HCPCS: 99213

== ENCOUNTER → 2025-04-03 13:13 | Outpatient (BNVA) | payer MEDICARE, SELFPAY | PROVIDERS: Visit Provider Internal Medicine Nephrology | DX: E87.1 Hypo-osmolality and hyponatremia (principal); I10 Essential (primary) hypertension; N18.30 Chronic kidney disease, stage 3 unspecified; E11.21 Type 2 diabetes mellitus with diabetic nephropathy | CPT/HCPCS: 99212 ==

== ENCOUNTER 2025-04-27 13:12 | Outpatient (AMB) | payer MEDICARE, SELFPAY ==
--- NOTE | 2025-04-27 13:17 | HO.NEPHOV_ITS ---
Vital Signs 04/27/25 13:24 Height 5 ft 11 in Weight 187 lb 2 oz BMI 26.1 BP 142/70 H Blood Pressure Location Lt brachial Position Sitting Pulse 67 Pulse Source Pulse Oximeter Pulse Oximetry (%) 97 Oxygen Delivery Method Room Air Intake Visit Reasons: 3wk f/u w/labs-Voicemail not set Pattern Grader Supervisor Required: No Accompanied by: Self / Same As Patient Allergies No Known Allergies Allergy (Verified 04/27/25 13:23) HPI Comments Details: Lorenzo was seen in follow up for diabetic nephropathy. He has been followed closely followed by Endocrinology. He denies hypoglycemias. He is on ACEI. He is not on any SGLT2 i. He denies CAD, CVA, CHF, PAD, edema or carotid stenosis. He does not take any NSAID's and maintain good hydration. His serum potassium has been high normal. His serum sodium has been normal. He did not have any specific complaints at the time of this office visit. [facility] Medical History (Updated 04/27/25 @ 13:18 by Tex Lynch MD) Nocturia Erectile dysfunction B12 deficiency Vitamin D deficiency CKD stage G2/A2, GFR 60-89 and albumin creatinine ratio 30-299 mg/g Bronchitis Epididymal cyst Spondylolisthesis at L5-S1 level DJD (degenerative joint disease) BPH (benign prostatic hyperplasia) Anxiety Depression Dyslipidemia GERD (gastroesophageal reflux disease) Gout Hypertension History of prostate cancer Obstructive sleep apnea Type 2 diabetes mellitus Review of Systems Const All systems reviewed & are unremarkable except as noted in HPI and below Physical Exam Const General: comfortable and no acute distress Orientation/consciousness: patient oriented x3 HEENT Head: Yes normocephalic Mouth: Normal oral and palatal mucosa present Eyes EOM: EOMs intact bilaterally Neck Neck: Yes supple Resp Auscultation: clear to auscultation bilaterally Cardio Jugular venous distension: no JVD Rate: regular rate GI Palpation (GI): Soft to palpation Auscultation: normal bowel sounds General: Yes no CVA tenderness Back/Spine/Pelvis Back: no CVA tenderness Skin General skin exam: no rashes or lesions noted Neuro General: patient oriented x3 and moves all extremities Extrem General: Yes no pedal edema Assessment & Plan Assessment & Plan (1) CKD (chronic kidney disease) stage 3, GFR 30-59 ml/min: Code(s): N18.30 - Chronic kidney disease, stage 3 unspecified Category: Medical Qualifiers: Chronic kidney disease stage 3 subtype: stage 3a (GFR 45-59) Qualified Code(s): N18.31 - Chronic kidney disease, stage 3a (2) Diabetic nephropathy: Code(s): E11.21 - Type 2 diabetes mellitus with diabetic nephropathy Category: Medical Qualifiers: Diabetes mellitus type: type 2 Qualified Code(s): E11.21 - Type 2 diabetes mellitus with diabetic nephropathy (3) Hypertension: Code(s): I10 - Essential (primary) hypertension Category: Medical Qualifiers: Hypertension type: primary hypertension Qualified Code(s): I10 - Essential (primary) hypertension Plan Lorenzo has Diabetic nephropathy. He is on ACEI. His serum K and Na has been normal. He is on Jardiance which he is tolerating well. His renal functions are stable and his BP is at goal. He should maintain good hydration and continue to avoid NSAID's. All these have explained in detail. Follow up labs ordered and answered all questions. Orders: Orders Hemoglobin A1c 3 Months E11. - Type 2 diabetes mellitus with diabetic nephropathy, I10 - Essential (primary) hypertension, N18.31 - Chronic kidney disease, stage 3a Blood Urea Nitrogen 3 Months E11.21 - Type 2 diabetes mellitus with diabetic nephropathy, I10 - Essential (primary) hypertension, N18.31 - Chronic kidney disease, stage 3a Protein Creatinine Ratio, Ur 3 Months E11. - Type 2 diabetes mellitus with diabetic nephropathy, I10 - Essential (primary) hypertension, N18.31 - Chronic kidney disease, stage 3a Electrolytes 3 Months E11.21 - Type 2 diabetes mellitus with diabetic nephropathy, I10 - Essential (primary) hypertension, N18.31 - Chronic kidney disease, stage 3a Creatinine 3 Months E11.21 - Type 2 diabetes mellitus with diabetic nephropathy, I10 - Essential (primary) hypertension, N18.31 - Chronic kidney disease, stage 3a Coding Level of Care Code Est Pt Level 4 (42452) Diagnoses Stage 3a chronic kidney disease N18.31 Chronic kidney disease stage 3 subtype: stage 3a (GFR 45-59) Diabetic nephropathy associated with type 2 diabetes mellitus E11. Diabetes mellitus type: type 2 Primary hypertension I10 Hypertension type: primary hypertension
[2025-04-27 13:24] VITALS: BP 142/70; PULSE 67; O2SAT 97; BMI 26.1
--- OUTSIDE RECORDS SUMMARY | 2025-04-27 14:32 | XMS_ITS | Patient Health Record ---
Author Organization Aldair Alvarado MD PA Address [address] [facility] [address] [place] [address] [phone] Care Team Providers Care School Plant Consultant Name Role Phone Aldair Alvarado Primary Care Provider [phone] Allergies No Known Allergies Reason For Referral [...] Status Risk Notes Problem Erectile dysfunction (disorder) (357175461) Male erectile dysfunction, unspecified (N52.9) Active confirmed Problem Type II diabetes mellitus without complication (331424357) Type 2 diabetes mellitus without complications (E11.9) Active confirmed Problem Essential hypertension (30541862) Essential (primary) hypertension (I10) Active confirmed Problem Mixed hyperlipidemia (476236834) Mixed hyperlipidemia (E78.2) Active confirmed Problem Vitamin D deficiency (84992860) Vitamin D deficiency, unspecified (E55.9) Active confirmed Problem Carcinoma in situ of prostate (53007632) 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) Active confirmed Problem Osteoarthritis of knee (471511431) Bilateral primary osteoarthritis of knee (M17.0) Active confirmed Problem Anxiety disorder (706409897) 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) Active confirmed Problem Lower urinary tract symptoms due to benign prostatic hypertrophy (13798414574608) Benign prostatic hyperplasia with lower urinary tract symptoms (N40.1) Active confirmed Problem Gastro-esophageal reflux disease without esophagitis (370641797) Gastro-esophageal reflux disease without esophagitis (K21.9) Active confirmed Problem Chronic kidney disease stage 3A (disorder) (311911273) Chronic kidney disease, stage 3a (N18.31) Active [...] Part B [address] [place] [phone] [id number] Lorenzo Russo Self - patient is the insured Medical (General) History Medical History History ICD Code Diabetes High cholesterol Hypertension Prostate problems Kidney disease Gout Surgical History Surgery Date(Month/Year) Hospitalization History Reason Date(Month/Year) Radiation for prostate cancer
--- OUTSIDE RECORDS SUMMARY | 2025-04-27 14:32 | XMS_ITS | Clinical Summary ---
Author Organization [employer] Address [address] [facility] 7[address] [place] [address] Care Team Providers Care Quarry Worker Name Role Phone Unavailable Primary Care Provider Unavailabl e Allergies No known active allergies Medications BD Pen Needle Chaya 2nd Gen 32G X 4 MM misc 2 Active acetaminophen (Tylenol) 500 MG tablet Take 1 tablet by mouth every 6 (six) hours if needed. 3 Active lidocaine (Lidoderm) 5 % patch Apply topically. 0 Active naproxen (Naprosyn) 500 MG tablet Take 1 tablet (500 mg) by mouth with breakfast and with evening meal. 60 tablet 3 Active FreeStyle lancets 1 each by Other route in the morning. 100 each 11 3 Active FREESTYLE LITE test strip 1 each by Other route in the morning. 100 each 11 3 Active Alcohol Swabs (Alcohol Prep) 70 % pads 1 Units in the morning. 100 each 11 3 Active aspirin 81 MG EC tablet TAKE 1 TABLET BY MOUTH EVERY DAY 90 tablet 1 3 Active tadalafil (Cialis) 5 MG tabletIndication s:Benign prostatic hyperplasia with urinary frequency Take 1 tablet (5 mg) by mouth in the morning. 90 tablet 1 3 Active D3-1000 25 MCG (1000 UT) tablet Take 1 tablet (25 mcg) by mouth in the morning. 90 tablet 4 3 Active lisinopril 10 MG tablet Take 1 tablet (10 mg) by mouth in the morning. 90 tablet 1 3 Active metFORMIN (Glucophage) 1000 MG tablet Take 1 tablet (1,000 mg) by mouth with breakfast and with evening meal. 180 tablet 1 3 Active simvastatin (Zocor) 20 MG tablet Take 1 tablet (20 mg) by mouth at bedtime. 90 tablet 1 3 Active tamsulosin (Flomax) 0.4 MG 24 hr capsule Take 2 capsules (0.8 mg) by mouth in the morning. 90 capsule 1 3 Active omeprazole (PriLOSEC) [address] Rudy ns:Gastroesophag eal reflux disease, unspecified whether esophagitis present Take 1 capsule (20 mg) by mouth before breakfast and before evening meal. 180 capsule 1 3 Active glipiZIDE (Glucotrol) 10 MG tablet Take 1 tablet (10 mg) by mouth before breakfast and before evening meal. 60 tablet 11 4 Active SITagliptin (Januvia) 100 MG tablet Take 1 tablet (100 mg) by mouth in the morning. 30 tablet 2 4 Active benzonatate (Tessalon) 200 MG capsule Take 1 capsule (200 mg) by mouth if needed in the morning, at noon, and at bedtime for cough. Do not crush or chew. 60 capsule 4 Active sildenafil (Viagra) 100 MG tablet Take 1 tablet (100 mg) by mouth if needed each day for erectile dysfunction. 10 tablet 4 Active famotidine (Pepcid) 40 MG tabletIndication s:Gastroesophage al reflux disease, unspecified whether esophagitis present TAKE ONE TABLET BY MOUTH AT BEDTIME NEEDED HEARTBURN 90 tablet 1 4 Active Active Problems Problem Noted Date Diagnosed Date Pain in right lumbar region of back 10/05/2023 Assessment & Plan (10/05/2023 2:34 PM EST): Patient stated having imaging done and was given medications by specialist, however, patient was notified that side effect of medication prescribed could affect glucose levels. In addition, recommended to assist to therapy since it will benefit with increasing range of motion and pain: patient accepted. Therefore, patient will be referred to Physical Therapy and Orthopaedic Surgery. COVID-19 09/07/2023 Assessment & Plan (09/07/2023 9:24 AM EST): Patient stated testing POSITIVE for COVID x5 days. Therefore, patient will be provided with Paxlovid to treat symptoms. Upper respiratory tract infection 06/22/2023 Assessment & Plan (06/22/2023 10:01 AM EDT): URI, rapid testing negative. Send out. Mild crackles in lungs will start antibiotics. Will also switch topical opthal drops from polymixin to cipro. RTC if worsening symptoms or no improvement. Dizziness after extension of neck 03/09/2023 Assessment & Plan (03/09/2023 10:33 AM EDT): Patient with dizziness episodes associated with change in head positions. Will send for xray of neck and ENT for further evaluation. Prostate cancer 12/22/2022 DJD (degenerative joint disease) of knee 023 Overview (12/22/2022): Left knee arthritis Dyslipidemia 10/05/2022 History of severe acute resp iratory syndrome coronavirus 2 (SARS-CoV-2) disease 10/14/2021 Overview (10/05/2022): DX: 09/2021. DX: 09/2021. Benign prostatic hyperplasia 07/04/2021 Assessment & Plan (01/24/2023 9:17 AM EDT): Patient with continued urgency and erectile dysfucntion. Will start cialis for dual purpose and increase dose of flomax. Patient will call to schedule appointment with Urologist. Cyst of epididymis 07/04/2021 Overview (10/05/2022): Right, follows w/ urology Dr. Garcia Right, follows w/ urology Dr. Garcia Gastroesophageal reflux disease 07/04/2021 Assessment & Plan (08/16/2023 6:20 PM EST): Patient with persistent symptoms despite trial of PPI, will send to GI for eval Assessment & Plan (07/20/2023 12:25 PM EST): Patient still presents visit with complaints of acid reflux with no improvement with Omeprazole, therefore, patient will have a change of medication: Famotidine. Stage 3a chronic kidney disease 03/09/2021 Simple renal cyst 03/09/2021 YISEL (obstructive sleep apnea) 01/18/2021 Overview (10/05/2022): NOT TREATED (Jun 2019) NOT TREATED (Jun 2019) [facility] Home Sleep Apnea Test: Date 05/11/2021; Wt [...] hypoventilation by 2020 home sleep apnea test. NOT TREATED (Jun 2019) [facility] Home Sleep Apnea Test: Date 05/11/2021; Wt [...] home sleep apnea test. Assessment & Plan (07/20/2023 12:24 PM EST): Patient still presents visit with complaints of sleep apnea, therefore, patient will be referred to Sleep Medicine. Hypertension 01/18/2021 Vitamin D deficiency 06/04/2018 B12 deficiency 12/28/2017 Normocytic anemia 01/19/2017 Rectal bleed 03/23/2016 Depression with anxiety 01/12/2015 Gout 10/08/2014 Erectile dysfunction 09/21/2014 Assessment & Plan (12/01/2023 3:12 AM EDT): Prescribed Viagra 100 mg. If it fails to work will refer to neurologist. Nocturia 09/21/2014 Type 2 diabetes mellitus 09/21/2014 Assessment & Plan (12/01/2023 3:11 AM EDT): Controlled: Advised to keep monitoring at home and bring in a log for next appointment. Labs: CBC, CMP, Lipid, TSH, Albumin, Glucose, Vitamin B12 Assessment & Plan (10/20/2023 11:58 AM EST): Advised to keep monitoring at home and bring in a log for next appointment. At that time we will reassess if Januvia (new medication) is helping control glucose. If glucose is still uncontrolled then we will change his treatment plan. Future Appointments Date Time Provider Department Center 11/02/2023 9:00 AM Sobeida Maloney DMD [facility] 11/16/2023 9:15 AM Ofe Veras MD [facility] Assessment & Plan (10/05/2023 2:31 PM EST): Controlled: A1C levels are < 8 %. Will not make any changes at this time. Advised to keep monitoring at home. Assessment & Plan (09/07/2023 9:23 AM EST): Patient denied having side effects with Glipizide, however, states taking 10mg instead of 5mg for better control and have stable glucose levels. Therefore, patient will be provided with an increase of same medication, and was advised to follow up in 1 month. Assessment & Plan (08/16/2023 6:21 PM EST): Will switch to SGLT-1 and f/up Assessment & Plan (08/10/2023 1:24 PM EST): Controlled: due to patient having side effects with prior prescription, patient will be prescribed Glipizide. Advised to monitor glucose levels at home, and bring numbers upon next office visit. Foot exam done today and State for therapeutic shoes done, will need to fax to Dr. Mcdowell's office. Follow up in 1 month. Assessment & Plan (03/09/2023 10:33 AM EDT): Discontinue glipizide and continue other medications as prescribed. Encouraged consistent monitoring of glucose levels at home. Will follow up in 3 months. Resolved Problems Problem Noted Date Diagnosed Date Resolved Date Bronchitis 04/07/2021 12/22/2022 Immunizations Immunization Administration Dates Next Due Influenza High-dose Quadriva lent Preservative Free 06/05/2022 Influenza Injectable Quadriv alant Preservative Free IIV4 MDCK 09/18/2019,06/03/2018 Influenza, High Dose Seasona l, Preservative Free 07/25/2023,06/05/2022,05/25/2021 Influenza, IIV3, injectable 07/30/2017, 5 Influenza, Unspecified 05/25/2021,05/18/2016,04/2015 PPD Test 10/09/2018 Pfizer Covid-19 Vaccine 12+ 12/29/2020, 1 Pneumococcal Conjugate PCV 13 06/22/2021, 016 TD (adult), 2 Lf tetanus tox oid, preservative free, adsorbed 10/09/2018 Zoster, live 01/19/2016 Social History Tobacco Use Types Packs/Day Years Used Date Smoking Tobacco: Never Passive Smoke Exposure: Never Smokeless Tobacco: Never Tobacco Cessation:Counseling Given: [...] Orientation Straight 07/03/2022 10 :30 AM EDT Last Filed Vital Signs Vital Sign Reading Time Taken Comments Blood Pressure 130/80 12/07/2023 11:08 AM EDT Pulse 62 11/30/2023 10:14 AM EDT Temperature 36.2 C (97.1 F) 11/30/2023 10:14 AM EDT Respiratory Rate 18 11/30/2023 10:14 AM EDT Oxygen Saturation 99% 11/30/2023 10:14 AM EDT Inhaled Oxygen Concentration - - Weight 85.4 kg (188 lb 3.2 oz) 11/30/2023 10:14 AM EDT Height 176 cm (5' 9.29 ) 11/30/2023 10:14 AM EDT Body Mass Index 27.56 11/30/2023 10:14 AM EDT Plan of Treatment Health Maintenance Due Date Last Done Comments CT Colonography 1954 Colonoscopy 1954 FIT 1954 FOBT 1954 Sigmoidoscopy 1954 Alcohol/Substance Use Screening 1966 Hepatitis C Screening 1972 RSV Patients and Patients Aged 60 years or older (1 - Risk 60-74 years 1-dose series) 2014 Zoster Vaccines (2 of 3) 03/15/2016 01/19/2016 Lipid Panel 01/02/2024 01/01/2023 Depression Screening 03/09/2024 03/09/2023, 03/09/20 COVID-19 Vaccine (3 - 2023- season) 2024 12/29/2020, 11/29/2020 Diabetes: Hemoglobin A1C 05/23/2024 024, 07/20/2023, 01/01/2023, Additional history exists Dental Oral Exam 05/26/2024 11/23/2023 Dental Prophylaxis 05/26/2024 11/23/2023, 07/13/2023 Diabetes: Foot Exam 08/10/2024 08/10/2023, 08/10/2023, 08/10/2023, Additional history exists SDOH Screening 11/07/2024 11/08/2023 Dental X-Ray: Bitewings 11/23/2024 11/23/2023, 11/22 Tobacco Screening 12/06/2024 12/07/2023 Influenza Vaccine (#1) 2025 , 07/25/2023, 06/26/2022, Additional history exists Diabetes: Urine Protein Screening 08/15/2025 08/15/2024, 07/23/2024, 01/01/2023 Eye Exam 09/07/2025 09/07/2023, 05/11/2016, 10/27/2015 Colorectal Cancer Screening 08/02/2026 FIT DNA/Cologuard 08/02/2026 08/02/2023 Dental X-Ray: Full Mouth 11/23/2026 11/23/2023, 11/02 DTaP/Tdap/Td Vaccines (3 - Td or Tdap) 10/09/2028 10/09/2018, 04/14/2017 Pneumococcal Vaccine: 50+ Years Completed 03/14/2024, 06/22/2021, 12/15/2015 HIB Vaccines Aged Out No longer eligi [...] patient's age to complete this topic Meningococcal Vaccine Aged Out No dalia amrit eligible based on patient's age to complete this topic RSV under 20 months Aged Out No longe r eligible based on patient's age to complete this topic Rotavirus Vaccines Aged Out No longer eligible based on patient's age to complete this topic Procedures Procedure Name Priority Date/Time Associated Diagnosis Comments HM DIABETES: URINE PROTEIN SCREENING Routine 07/23/2024 2:50 PM EST PERIODIC ORAL EVALUATION - ESTABLISHED PATIENT Routine 11/23/2023 11:30 AM EDT PROPHYLAXIS - ADULT Routine 11/23/2023 1 1:00 AM EDT INTRAORAL - COMPLETE SERIES OF RADIOGRAPHIC IMAGES Routine 11/23/2023 11:00 AM EDT POCT GLYCATED HEMOGLOBIN, TOTAL Routine 11/21/2023 3:24 PM EDT Type 2 diabetes mellitus with other specified complication, without long-term current use of insulin (CMS/HCC) DIABETES EYE EXAM Routine 09/07/2023 LINK DIABETIC FOOT EXAM Routine 08/10/2023 LAB COLOGUARD COLON CANCER SCREEN Routine 08/02/2023 9:00 PM EST Colon cancer screening LIPID PANEL, STANDARD Routine 01/01/2023 8:42 AM EDT Type 2 diabetes mellitus without complication, with long-term current use of insulin (CMS/HCC) from Last 3 Months or Most Recently Relevant to Health Maintenance Results * HM Diabetes: Urine Protein Screening (07/23/2024 2:50 PM EST) Urine us Historical Provider HEALTH MAINTENANCE Final Result * (ABNORMAL) POCT HGB A1C (11/21/2023 3:24 PM EDT) Hemoglobin A1C 6.9(A) 4.0 - 6.0 % QC Media Lot # [id number] Lot# Expiration Date Blood 11/21/2023 3:24 PM EDT Fermin Esquivel MD POINT OF CARE TEST ENTER/ED IT ORDERABLES Final Result * Hm Diabetes Eye Exam (09/07/2023) Eye Exam Normal Normal Impressions Ofe Veras MD - 09/07/2023 No signs of diabetic retinopathy Historical Provider MD HEALTH MAINTENANCE Final Result * HP Diabetic Foot Exam (08/10/2023) Narrative Ofe Veras MD - 08/10/2023 R foot with decr sensitivity with monofilament testing, & tuning fork. Also mild deformity of toes Ofe Veras MD HEALTH MAINTENANCE Final Resu lt * Cologuard?? colon cancer screening (08/02/2023 9:00 PM EST) Cologuard Result Negative Negative 08/11/20 4:15 AM EST Guide (CLIA #:[id number]) Comment: NEGATIVE TEST RESULT. A negative Cologuard result indicates a low likelihood that a colorectal cancer (CRC) or advanced adenoma (adenomatous polyps with more advanced pre-malignant features) is present. The chance that a person with a negative Cologuard test has a colorectal cancer is less than 1 in 1500 (negative predictive value >99.9%) or has an advanced adenoma is less than 5.3% (negative predictive value 94.7%). These data are based on a prospective cross-sectional study of 10,000 individuals at average risk for colorectal cancer who were screened with both Cologuard and colonoscopy. (Moshe Chambers, N Engl J Med 2014;370(14):7345-4926) The normal value (reference range) for this assay is negative. COLOGUARD RE-SCREENING RECOMMENDATION: Periodic colorectal cancer screening is an important part of preventive healthcare for asymptomatic individuals at average risk for colorectal cancer. Following a negative Cologuard result, the [place] [employer] Society and U.S. Multi-Society Task Force screening guidelines recommend a Cologuard re-screening interval of 3 years. References: [place] [employer] Guideline for Colorectal Cancer Screening: https://www.cancer.org/cancer/aoknh-yqwhtj-iythpz/wtxelykmc-kamvqhxcy-ptunxjt/ac s-rec ommendations.html.; Romaine DK, Gila VEGA, Andrez SilverioK, Colorectal Cancer Screening: Recommendations for Physicians and Patients from the U.S. Multi-Society Task Force on Colorectal Cancer Screening , Am J Gastroenterology 2017; 112:6048-7840. TEST DESCRIPTION: Composite algorithmic analysis of stool DNA-biomarkers with hemoglobin immunoassay. Quantitative values of individual biomarkers are not reportable and are not associated with individual biomarker result reference ranges. Cologuard is intended for colorectal cancer screening of adults of either sex, 45 years or older, who are at average-risk for colorectal cancer (CRC). Cologuard has been approved for use by the U.S. FDA. The performance of Cologuard was established in a cross sectional study of average-risk adults aged 50-84. Cologuard performance in patients ages 45 to 49 years was estimated by sub-group analysis of near-age groups. Colonoscopies performed for a positive result may find as the most clinically significant lesion: colorectal cancer [4.0%], advanced adenoma (including sessile serrated polyps greater than or equal to 1cm diameter) [20%] or non- advanced adenoma [31%]; or no colorectal neoplasia [45%]. These estimates are derived from a prospective cross-sectional screening study of 10,000 individuals at average risk for colorectal cancer who were screened with both Cologuard and colonoscopy. (Moshe Lind et al, N Engl J Med 2014;370(14):9122-5288.) Cologuard may produce a false negative or false positive result (no colorectal cancer or precancerous polyp present at colonoscopy follow up). A negative Cologuard test result does not guarantee the absence of CRC or advanced adenoma (pre-cancer). The current Cologuard screening interval is every 3 years. ([place] [employer] Society and U.S. Multi-Society Task Force). Cologuard performance data in a 10,000 patient pivotal study using colonoscopy as the reference method can be accessed at the following location: www.[employer]/results. Additional description of the Cologuard test process, warnings and precautions can be found at www.cologOrganovo Holdingsrd.com. Stool specimen (specimen) 08/02/2023 9:00 PM EST 08/04/2023 7:12 PM EST us Ofe Veras MD LAB MOLECULAR DIAGNOSTICS ORD ERABLES Final Result Guide (CLIA #:[id number]) [place] [address], * (ABNORMAL) Lipid Panel, Standard (01/01/2023 8:42 AM EDT) Cholesterol, Total 133 <200 mg/dL [facility] HDL Cholesterol 37(L) > OR = 40 mg/dL [facility] Triglycerides 217(H) <150 mg/dL [facility] Comment: If a non-fasting specimen was collected, consider repeat triglyceride testing on a fasting specimen if clinically indicated. Destiny et al. J. of Clin. Lipidol. 2015;9:129-169. LDL Cholesterol 67 mg/dL (calc) [facility] Comment: Reference range: <100 Desirable range <100 mg/dL for primary prevention; <70 mg/dL for patients with CHD or diabetic patients with > or = 2 CHD risk factors. LDL-C is now calculated using the Mitchell-Elieser calculation, which is a validated novel method providing better accuracy than the Friedewald equation in the estimation of LDL-C. Mitchell SS et al. SAMIR. 2013;310(19): 3771-0416 (http://education.[employer]/faq/GLP841) Chol/HDLC Ratio 3.6 <5.0 (calc) [facility] Non-HDL Cholesterol 96 <130 mg/dL (calc) [facility] Comment: For patients with diabetes plus 1 major ASCVD risk factor, treating to a non-HDL-C goal of <100 mg/dL (LDL-C of <70 mg/dL) is considered a therapeutic option. Blood Venous blood specimen / Unknown 01/01/2023 8:42 AM EDT 01/01/2023 8:43 AM EDT Narrative [facility] - 01/02/2023 10:38 PM EDT FASTING:YES FASTING: YES us Ofe Veras MD LAB BLOOD ORDERABLES Final Re sult [facility] [address], [place] [address] [facility] [address] [place] [address] from Last 3 Months or Most Recently Relevant to Health Maintenance Insurance [facility] [employer] (HMO D-SNP) MEDICARE [facility] PARTIAL DENTAL - HSN PARTIAL (MEDICAID)
--- OUTSIDE RECORDS SUMMARY | 2025-04-27 14:32 | XMS_ITS | Encounter Summary ---
Author Organization [employer] Address [address] [place] [address] [address] [place] [address] Care Team Providers Care Stage Driver Name Role Phone Ofe Veras MD Primary Care Provider [phone] Encounter Details Date Type Department Care Team (Latest Contact Info) Description 05/31/2022 Abstract [facility] CONVERSIONS Dental, Provider, DDS Social History Tobacco [...] on filedocumented in this encounter Care Teams Stage Driver Relationship Specialty Start Date End Date Ofe Veras MD [address] [place] [id number] PCP - General Family Medicine 12/22/22 02/18/24 documented as of this encounter
--- OUTSIDE RECORDS SUMMARY | 2025-04-27 14:32 | XMS_ITS | Encounter Summary ---
Author Organization [employer] Address [address] [facility] [address] [place] [address] Care Team Providers Care Regional Director Name Role Phone Unavailable Primary Care Provider Unavailabl e Encounter Details Date Type Department Care Team (Late st Contact Info) Description 07/25/2024 Orders Only [facility] [address] [place] [address] ProviderMonica MD Social History Tobacco Use Types Packs/Day Years [...] on file documented as of this encounter Procedures Procedure Name Priority Date/Time Associated Diagnosis Comments HM DIABETES: URINE PROTEIN SCREENING Routine 07/23/2024 2:50 PM EST documented in this encounter Results * HM Diabetes: Urine Protein Screening (07/23/2024 2:50 PM EST) Urine us Historical Provider HEALTH MAINTENANCE Final Result documented in this encounter Visit Diagnoses Not on filedocumented in this encounter Additional Health Concerns Assessment Noted Time PHQ-9 Depression Total Score: 0 03/09/20 23 10:06 AM EDT documented as of this encounter
--- OUTSIDE RECORDS SUMMARY | 2025-04-27 14:32 | XMS_ITS | Encounter Summary ---
Author Organization [employer] Address [address] [place] [address] [address] [place] [address] Care Team Providers Care Molder Machine Name Role Phone Ofe Veras MD Primary Care Provider [phone] Encounter Details Date Type Department Care Team [...] on filedocumented in this encounter Care Teams Molder Machine Relationship Specialty Start Date End Date Ofe Veras MD [address] [place] [id number] PCP - General Family Medicine 12/22/22 02/18/24 documented as of this encounter
--- OUTSIDE RECORDS SUMMARY | 2025-04-27 14:32 | XMS_ITS | Encounter Summary ---
Author Organization [employer] Address [address] [place] [address] Care Team Providers Care Insulation Nozzleman Name Role Phone Jelena Olsen MD Primary Care Pr ovider Reason for Visit * Reason Onset Date Comments Medication Problem 04/21/2025 Encounter Details Date Type Department Care Team ([facility] Contact Info) Description 04/21/2025 Telephone [facility] [address] [place] [phone] [place] [address] [place] [address] Social History Tobacco Use Types Packs/Day Years [...] care for your loved ones. For example, early childhood worker or elderly care for an older adult? [...] Orientation Straight 09/05/2024 5: 56 PM EST documented as of this encounter Ordered Prescriptions Prescription Sig Dispense Quantity Refills Last Filled Start Date End Date blood-glucose meter (OneTouch Ultra2 Meter) miscIndications:Typ e 2 diabetes mellitus with other kidney complication, unspecified whether buttermaker continuous churn insulin use ([facility] V24, [facility] V28) Use to check bs daily 1 each 04/23/2025 OneTouch Ultra Test test stripIndications:Ty pe 2 diabetes mellitus with other kidney complication, unspecified whether buttermaker continuous churn insulin use ([facility] V24, [facility] V28) Use to check bs daily 100 each 12 04/23/2025 04/23/2026 lancets (OneTouch Delica Plus Lancet) 30 gaugeIndications:Ty pe 2 diabetes mellitus with other kidney complication, unspecified whether usp insulin use ([facility] V24, [facility] V28) Use to check bs daily 100 each 12 04/23/2025 04/23/2026 documented in this encounter Progress Notes * MISSAEL Jean Baptiste - 04/23/2025 11:39 AM EDT ordered * Lisa Argueta - 04/21/2025 1:12 PM EDT Medication Problem: What is the name of the medication patient is having a problem with?: Freestyle test strips What is the problem?: alternative requested: ins no longer covers freestyle please send over eitheraccuchek or onetouch test strips, machine, and lancets for a new setup for the Pt Who is calling about the problem? : [facility] Is this a NEW medication?: no How long has the patient been taking this medication? N/a Who prescribed this medication for the patient? [address] Who is patients PCP?: Jelena Olsen MD Payor: [employer] / Plan: [employer] / Product Type: *No Product type* / documented in this encounter Plan of Treatment Upcoming Encounters Date Type Department Care Team (Late st Contact Info) Description 04/29/2025 2:30 PM EDT Office Visit Adult Medicine [address] [phone] Susan Graves PA [address] [place] [id number] 05/26/2025 9:30 AM EDT Office Visit Orthopedic Surgery - [place] [address] [phone] Jarret Mcdowell, DPM [address] [address] documented as of this encounter Visit Diagnoses Diagnosis Type 2 diabetes mellitus with other kidney complication, unspecified whether usp insulin use ([facility] V24, [facility] V28)- Primary documented in this encounter Discontinued Medications Medication Sig Discontinue Reason Start Date End Da te blood-glucose meter kit Use to check blood sugars three times daily 07/26/2021 04/23/2025 freestyle (FreeStyle Lancets) 28 gauge lancets Use to test blood sugar 3 times daily. 02/06/2025 04/23/2025 glucose blood test strip Use to test blood sugar 3 times daily. 02/06/2025 04/23/2025 documented as of this encounter Additional Health Concerns Assessment Noted Time PHQ-9 Depression Total Score: 0 10/17/19 25 8:55 AM EST documented as of this encounter Care Teams Insulation Nozzleman Relationship Specialty Start Date End Date Jelena Olsen MD [address] [facility] [place], [place] PCP - General Internal Medicine 04/27/22 documented as of this encounter
--- OUTSIDE RECORDS SUMMARY | 2025-04-27 14:33 | XMS_ITS | Clinical Summary ---
Author Organization [address] Address [address] [facility] 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 DX: E11.29 R80.9 100 each 2 02/04/20 25 Active metFORMIN (GLUCOPHAGE) 1,000 mg tablet Take 1 tablet (1,000 mg total) by mouth 2 (two) times a day with meals. 180 tablet 3 02/07/20 25 Active insulin glargine (Lantus Solostar U-100 Insulin) 100 unit/mL (3 mL) injection pen 10 units SC at [id number] units SC at bedtime 45 mL 3 02/07/20 25 Active glipiZIDE (GLUCOTROL) 10 mg tablet Take [...] DAY. 90 capsule 1 03/10/20 25 Active cholecalciferol (Vitamin D3) 25 mcg (1,000 unit) tablet Take 2 tablets (2,000 Units total) by mouth 1 (one) time each day. 360 each 04/03/20 25 026 Active lancets (OneTouch Delica Plus Lancet) 30 gaugeIndication s:Type 2 diabetes mellitus with other kidney complication, unspecified whether oil heaterman insulin use ([facility] V24, [facility] V28) Use to check bs daily 100 each 12 04/23/20 25 026 Active OneTouch Ultra Test test stripIndication s:Type 2 diabetes mellitus with other kidney complication, unspecified whether oil heaterman insulin use ([facility] V24, [facility] V28) Use to check bs daily 100 each 12 04/23/20 25 026 Active blood-glucose meter (OneTouch Ultra2 Meter) miscIndications :Type 2 diabetes mellitus with other kidney complication, unspecified whether oil heaterman insulin use ([facility] V24, [facility] V28) Use to check bs daily 1 each 04/23/20 25 Active blood-glucose meter kit Use to check blood sugars three times daily 07/26/20 21 025 Discontinued cholecalciferol (VITAMIN D-3) 50 mcg (2,000 unit) tabletIndicatio ns:Vitamin D deficiency Take 1 tablet (2,000 Units total) by mouth 1 (one) time each day. 90 tablet 3 10/24/19 25 025 Discontinued(Du plicate order) freestyle (FreeStyle Lancets) 28 gauge lancets Use to test blood sugar 3 times daily. 300 each 3 02/07/20 25 025 Discontinued glucose blood test strip Use to test blood sugar 3 times daily. 300 each 3 02/07/20 25 025 Discontinued Active Problems Problem Noted Date Diagnosed Date DJD (degenerative joint disease) of knee 024 Mixed hyperlipidemia 06/03/2024 HTN (hypertension) 06/03/2024 YISEL (obstructive sleep apnea) 06/03/2024 Overview (06/03/2024): NOT TREATED (Jun 2019) [facility] Home Sleep Apnea Test: Date [...] EST): Continue follow-up with urology group of [facility]. Continue tamsulosin 0.8 mg daily. Recent [...] 2 diabetes mellitus wit h renal complication ([facility] V24, [facility] V28) 02/25/2021 Vitamin D deficiency 06/04/2018 [...] Type 2 diabetes mellitus wit h microalbuminuria ([facility] V24, [facility] V28) 09/21/2014 Assessment & Plan (10/17/2024 [...] Encounters Date Type Department Care Team Description 04/21/2025 Telephone Endocrinology - [place] [address] [place] [phone] [place] 02/06/2025 9:30 AM EDT Office Visit Endocrinology - [place] [address] [place] [phone] [place] Type 2 diabetes mellitus with other kidney complication, unspecified whether oil heaterman insulin use (CMS/[facility] V24, [facility] V28) (Primary Dx); Secondary hypertension; Mixed hyperlipidemia from Last 3 Months Immunizations Name Administration Dates Next Due Influenza Quadravalent, MDCK , 0.5ml, preservative free (Flucelvax) 6mo and older 09/18/2019,06/03/2018 Influenza trivalent, 0.5mL ( Fluzone High-dose) 65yo and older 08/01/2024,07/25/2023,06/05/2022,2020 Influenza trivalent, with preservative (Fluzone; Afluria) 6mo and older 07/30/2017,09/16/2014 Influenza, Unspecified 06/26/2022,2020,05/18/2016,2014 PPD Test 10/09/2018 [employer] SARS-CoV-2 COVID-19, mRNA, LNP-S, preservative free 12/29/2020,11/29/2020 [...] Date Site/Laterality Comments OTHER SURGICAL HISTORY PROCEDURE: [place] VAGINALIS HYDROCELE BOTTLE TYPE; COMMENT: right testicle HERNIA REPAIR PROCEDURE: HISTORICAL HERNIA REPAIR/ING; COMMENT: bilateral KNEE SURGERY Right PROCEDURE: HISTORICAL KNEE SURGERY OTHER SURGICAL HISTORY PROCEDURE: HISTORICAL ARM SURGERY COLONOSCOPY 2011 PROCEDURE: HISTORICAL COLONOSCOPY; COMMENT: Date approximate, negative examination performed in [place] by history. COLONOSCOPY 07/31/2016 PROCEDURE: HISTORICAL COLONOSCOPY; COMMENT: Mild radiation proctitis. CHOLECYSTECTOMY 01/08/2018 PROCEDURE: LAPAROSCOPY, CHOLECYSTECTOMY Medical History Medical History Date Comments Dyslipidemia DX:Dyslipidemia HTN (hypertension) DX:HTN (hyper tension) Anxiety 09/21/2014 DX:Anxiety Nocturia 09/21/2014 DX:Nocturia Erectile dysfunction 09/21/2014 DX:Erectile dysfunction Hypertriglyceridemia 09/21/2014 DX:Hypertri glyceridemia DM (diabetes mellitus), type 2 with peripheral vascular complications ([facility] V24, [facility] V28) 09/21/2014 DX:DM (diabetes mellitus), type 2 [...] kidney disease) stage 3, GFR 30-59 ml/min (CMS/HCC V24, [facility] V28) 02/25/2021 DX:CKD (chroni c kidney disease) stage 3, GFR 30-59 ml/min ([facility]) Depression with anxiety 01/12/2015 DX:Depre ssion with anxiety Normocytic anemia 01/19/2017 DX:Normocytic anemia Type 2 diabetes mellitus wit h renal complication (CMS/HCC V24, CMS/HCC V28) 02/25/2021 DX:Type 2 diab etes mellitus with renal complication (HCC) Vitamin D deficiency 06/04/2018 DX:Vitamin D deficiency [...] care for your loved ones. For example, children counselor or elderly care for an older adult? [...] PM EDT Office Visit Adult Medicine [address] [phone] Susan Graves PA [address] [place] [address] 05/26/2025 9:30 AM EDT Office Visit Orthopedic Surgery - [place] [id number] [phone] Jarret Mcdowell, DPM [address] [address] Health Maintenance Due Date Last Done Comments [...] exists Diabetes: Annual GFR (Glomerular Filtration Rate) 04/24/2026 04/24/2025, 03/27/2025, 02/06/2025, Additional history exists Hypertension/CHF/CAD Annual BMP Blood Test 04/24/2026 04/24/2025, 03/27/2025, 02/06/2025, Additional history exists Colorectal Cancer Screening: FIT-DNA [...] Procedure Name Priority Date/Time Associated Diagnosis Comments OSMOLALITY, URINE Routine 04/24/2025 8:1 2 AM EDT Chronic kidney disease, stage III (moderate) (CMS/HCC V24, CMS/HCC V28) Hyposmolality syndrome SODIUM, URINE, RANDOM Routine 04/24/2025 8:12 AM EDT Chronic kidney disease, stage III (moderate) (CMS/HCC V24, CMS/HCC V28) Hyposmolality syndrome BASIC METABOLIC PANEL Routine 04/24/2025 8:06 AM EDT Chronic kidney disease, stage III (moderate) (CMS/HCC V24, CMS/HCC V28) Hyposmolality syndrome CREATININE, SERUM Routine 03/27/2025 1:4 7 PM EDT Diabetic kidney (CMS/HCC V24, CMS/HCC V28) Primary hypertension ELECTROLYTE PANEL Routine 03/27/2025 1:4 7 PM EDT Diabetic kidney (CMS/HCC V24, CMS/HCC V28) Primary hypertension BUN Routine 03/27/2025 1:47 PM EDT Diabetic kidney (CMS/HCC V24, CMS/HCC V28) Primary hypertension THYROXINE FREE Routine 02/20/2025 [...] mellitus with other kidney complication, unspecified whether residential insulin use (CMS/[facility] V24, CMS/[facility] V28) BASIC METABOLIC PANEL Routine 02/06/2025 10:26 AM EDT Type 2 diabetes mellitus with other kidney complication, unspecified whether residential insulin use (CMS/HCC V24, CMS/HCC V28) LIPID PANEL WITH REFLEX TO DIRECT LDL Routine 02/06/2025 10:26 AM EDT Type 2 diabetes mellitus with other kidney complication, unspecified whether oil heaterman insulin use (CMS/HCC V24, CMS/[facility] V28) MICROALBUMIN CREATININE URINE RATIO Routine 02/06/2025 10:26 AM EDT Type 2 diabetes mellitus with other kidney complication, unspecified whether oil heaterman insulin use (CMS/HCC V24, CMS/HCC V28) POC GLUCOSE Routine 02/06/2025 10:02 AM EDT Type 2 diabetes mellitus with other kidney complication, unspecified whether oil heaterman insulin use (CMS/HCC V24, CMS/HCC V28) FALLS RISK ASSESSMENT Routine 03/14/2024 DIABETES EYE EXAM Routine 08/15/2023 FIT-DNA Routine 08/02/2023 HEPATITIS C SCREENING Routine 09/17/2014 from Last 3 Months or Most Recently Relevant to Health Maintenance Results * Sodium, urine, random (04/24/2025 8:12 AM EDT) Sodium, Ur 110 mmol/L LAB CHEMISTRY METHOD 04/24/2025 9:41 AM EDT [facility] Urine Urine specimen obtained by clean catch procedure / Unknown Non-blood Collection / Unknown 04/24/2025 8:12 AM EDT 04/24/2025 8:59 AM EDT [facility] LAB URINE ORDERABLES Final Result Performing Organization Address City/[facility]/ZIP Co de Phone Number [facility] [address] [place] [address], [place] [phone] * Osmolality, urine (04/24/2025 8:12 AM EDT) [facility] Osmolality, Urine 798 300 - 1,300 mOsm/kg LAB CHEMISTRY METHOD 04/24/2025 10:25 AM EDT [facility] Urine Urine specimen obtained by clean catch procedure / Unknown Non-blood Collection / Unknown 04/24/2025 8:12 AM EDT 04/24/2025 8:59 AM EDT [facility] LAB URINE ORDERABLES Final Result Performing Organization Address City/[facility]/ZIP Co de Phone Number [facility] [address] [place] [address], [place] [phone] * (ABNORMAL) Basic metabolic panel (04/24/2025 8:06 AM EDT) Only the most recent of2 resultswithin the time period is included. Sodium 138 133 - 145 mmol/L LAB CHEMISTRY METHOD 04/24/2025 9:41 AM [facility] Potassium 4.9 3.5 - 5.5 mmol/L LAB CHEMISTRY METHOD 04/24/2025 9:41 AM [facility] Chloride 103 96 - 110 mmol/L LAB CHEMISTRY METHOD 04/24/2025 9:41 AM [facility] CO2 27 21 - 32 mmol/L LAB CHEMISTRY METHOD 04/24/2025 9:41 AM [facility] Anion Gap 8 3 - 11 LAB CHEMISTRY METHOD 04/24/2025 9:41 AM [facility] Glucose 160(H) 70 - 100 mg/dL LAB CHEMISTRY METHOD 04/24/2025 9:41 AM [facility] BUN 22 5 - 25 mg/dL LAB CHEMISTRY METHOD 04/24/2025 9:41 AM [facility] Creatinine 1.12 0.70 - 1.30 mg/dL LAB CHEMISTRY METHOD 04/24/2025 9:41 AM [facility] eGFR 71 >=60 mL/min/1. 73m2 LAB CHEMISTRY METHOD 04/24/2025 9:41 AM [facility] Comment:Calculation based on the Chronic Kidney Disease Epidemiology Collaboration (CKD-EPI) equation refit without adjustment for race. BUN/Creatinine Ratio 19.6 LAB CHEMISTRY METHOD 04/24/2025 9:41 AM [facility] Calcium 9.2 8.5 - 10.5 mg/dL LAB CHEMISTRY METHOD 04/24/2025 9:41 AM [facility] Blood Venous blood specimen / Unknown Venipuncture / Unknown 04/24/2025 8:06 AM EDT 04/24/2025 8:58 AM EDT Hafsa Mathwe NP LAB BLOOD ORDERABLES Final Result Performing Organization Address City/[facility]/ZIP Co de Phone Number [facility] [address] [place] [address], [place] [phone] * Creatinine (03/27/2025 1:47 PM EDT) Creatinine 1.14 0.70 - 1.30 mg/dL LAB CHEMISTRY METHOD 03/27/2025 5:36 PM EDT [facility] eGFR 69 >=60 mL/min/1. 73m2 LAB CHEMISTRY METHOD 03/27/2025 5:36 PM EDT [facility] Comment:Calculation based on the Chronic Kidney Disease Epidemiology Collaboration (CKD-EPI) equation refit without adjustment for race. Blood Venous blood specimen / Unknown Venipuncture / Unknown 03/27/2025 1:47 PM EDT 03/27/2025 2:50 PM EDT Tex Lynch MD LAB BLOOD ORDERABLES Final Resul t Performing Organization Address City/[facility]/ZIP Co de Phone Number [facility] [address] [place] [address], [place] [phone] * BUN (03/27/2025 1:47 PM EDT) BUN 21 5 - 25 mg/dL LAB CHEMISTRY METHOD 03/27/2025 5:36 PM EDT [facility] Blood Venous blood specimen / Unknown Venipuncture / Unknown 03/27/2025 1:47 PM EDT 03/27/2025 2:50 PM EDT Tex Lynch MD LAB BLOOD ORDERABLES Final Resul t [facility] [address] [place] [address], [place] [phone] * (ABNORMAL) Electrolyte panel (03/27/2025 1:47 PM EDT) Sodium 130(L) 133 - 145 mmol/L LAB CHEMISTRY METHOD 03/27/2025 5:36 PM EDT [facility] Potassium 4.4 3.5 - 5.5 mmol/L LAB CHEMISTRY METHOD 03/27/2025 5:36 PM EDT [facility] Chloride 96 96 - 110 mmol/L LAB CHEMISTRY METHOD 03/27/2025 5:36 PM EDT [facility] CO2 26 21 - 32 mmol/L LAB CHEMISTRY METHOD 03/27/2025 5:36 PM EDT [facility] Anion Gap 8 3 - 11 LAB CHEMISTRY METHOD 03/27/2025 5:36 PM EDT [facility] Blood Venous blood specimen / Unknown Venipuncture / Unknown 03/27/2025 1:47 PM EDT 03/27/2025 2:50 PM EDT Tex Lynch MD LAB BLOOD ORDERABLES Final Resul t [facility] [address] [place] [address], [place] [phone] * ACTH (02/20/2025 8:06 AM EDT) Adrenocorticotropic Hormone (ACTH) 10 <=46 pg/mL 02/23/2025 3:48 PM EDT [facility] Comment: Test performed at [facility], [address], [place] [address] Yancy Hall MD, PhD - Tactical Air Control Party Manager Blood Venous blood specimen / Unknown Venipuncture / Unknown 02/20/2025 8:06 AM EDT 02/20/2025 8:21 AM EDT Fili Titus MD LAB BLOOD ORDERABLES Final Res ult [facility] [address] [place] [address] * Thyroid stimulating hormone (02/20/2025 8:06 AM EDT) TSH 1.58 0.40 - 4.00 mcIU/mL LAB CHEMISTRY METHOD 02/20/2025 10:10 AM EDT [facility] Blood Venous blood specimen / Unknown Venipuncture / Unknown 02/20/2025 8:06 AM EDT 02/20/2025 8:20 AM EDT Fili Titus MD LAB BLOOD ORDERABLES Final Res ult [facility] [address] [place] [address], [place] [phone] * Thyroxine free (02/20/2025 8:06 AM EDT) Free T4 1.17 0.70 - 1.80 ng/dL LAB CHEMISTRY METHOD 02/20/2025 10:10 AM EDT [facility] Blood Venous blood specimen / Unknown Venipuncture / Unknown 02/20/2025 8:06 AM EDT 02/20/2025 8:20 AM EDT Fili Titus MD LAB BLOOD ORDERABLES Final Res ult [facility] [address] [place] [address], [place] [phone] * Cortisol (02/20/2025 8:06 AM EDT) Cortisol 14.5 mcg/dL LAB CHEMISTRY METHOD 02/20/2025 10:10 AM EDT [facility] Blood Venous blood specimen / Unknown Venipuncture / Unknown 02/20/2025 8:06 AM EDT 02/20/2025 8:20 AM EDT Narrative [facility] - 02/20/2025 10:10 AM EDT CORTISOL REFERENCE RANGE 8 AM SPEC: 5.0-23.0 mcg/dL 4 PM SPEC: 3.0-16.0 mcg/dL 8 PM SPEC: <5.0 mcg/dL Fili Titus MD LAB BLOOD ORDERABLES Final Res ult [facility] [address] [place] [address], [place] [phone] * (ABNORMAL) Sodium (02/17/2025 10:44 AM EDT) Sodium 130(L) 133 - 145 mmol/L LAB CHEMISTRY METHOD 02/17/2025 2:35 PM EDT [facility] Blood Venous blood specimen / Unknown Venipuncture / Unknown 02/17/2025 10:44 AM EDT 02/17/2025 10:44 AM EDT us Gaby CANAS LAB BLOOD ORDERABLES Final Result Performing Organization Address City/[facility]/ZIP Co de Phone Number [facility] [address] [place] [address], [place] [phone] * Lipid panel with reflex to direct LDL (02/06/2025 10:26 AM EDT) Cholesterol 138 0 - 200 mg/dL LAB CHEMISTRY METHOD 02/06/2025 2:29 PM EDT [facility] Triglycerides 139 0 - 150 mg/dL LAB CHEMISTRY METHOD 02/06/2025 2:29 PM EDT [facility] HDL 43 >=40 mg/dL LAB CHEMISTRY METHOD 02/06/2025 2:29 PM EDT [facility] LDL Calculated 67 0 - 100 mg/dL LAB CHEMISTRY METHOD 02/06/2025 2:29 PM EDT [facility] VLDL Cholesterol [place] 27.8 mg/dL LAB CHEMISTRY METHOD 02/06/2025 2:29 PM EDT [facility] Non HDL Chol. (LDL+VLDL) 95 <145 mg/dL LAB CHEMISTRY METHOD 02/06/2025 2:29 PM EDT [facility] Chol/HDL Ratio 3.2 0.0 - 4.4 LAB CHEMISTRY METHOD 02/06/2025 2:29 PM EDT [facility] Blood Venous blood specimen / Unknown Venipuncture / Unknown 02/06/2025 10:26 AM EDT 02/06/2025 10:26 AM EDT us Gaby CANAS LAB BLOOD ORDERABLES Final Result [facility] [address] [place] [address], * (ABNORMAL) CBC auto differential (02/06/2025 10:26 AM EDT) WBC 6.1 4.8 - 10.8 K/mcL LAB HEMETOLOGY METHOD 02/06/2025 12:23 PM [facility] RBC 4.80 4.50 - 5.50 M/mcL LAB HEMETOLOGY METHOD 02/06/2025 12:23 PM [facility] Hemoglobin 13.9 13.5 - 17.5 g/dL LAB HEMETOLOGY METHOD 02/06/2025 12:23 PM [facility] Hematocrit 41.7(L) 42.0 - 54.0 % LAB HEMETOLOGY METHOD 02/06/2025 12:23 PM [facility] MCV 87.4 79.0 - 98.0 FL LAB HEMETOLOGY METHOD 02/06/2025 12:23 PM [facility] MCH 29.1 27.0 - 32.0 pcg LAB HEMETOLOGY METHOD 02/06/2025 12:23 PM [facility] MCHC 33.3 32.0 - 37.0 g/dL LAB HEMETOLOGY METHOD 02/06/2025 12:23 PM [facility] RDW 13.0 11.0 - 15.0 % LAB HEMETOLOGY METHOD 02/06/2025 12:23 PM [facility] Platelets 250 130 - 400 K/mcL LAB HEMETOLOGY METHOD 02/06/2025 12:23 PM [facility] MPV 9.2 7.0 - 11.0 FL LAB HEMETOLOGY METHOD 02/06/2025 12:23 PM [facility] NRBC 0.0 <1.0 % LAB HEMETOLOGY METHOD 02/06/2025 12:23 PM [facility] NRBC Absolute 0.00 <0.10 K/mcL LAB HEMETOLOGY METHOD 02/06/2025 12:23 PM [facility] Neutrophils Relative 70.3 % LAB HEMETOLOGY METHOD 02/06/2025 12:23 PM [facility] Lymphocytes Relative 20.3 % LAB HEMETOLOGY METHOD 02/06/2025 12:23 PM [facility] Monocytes Relative 8.2 % LAB HEMETOLOGY METHOD 02/06/2025 12:23 PM [facility] Eosinophils Relative 0.7 % LAB HEMETOLOGY METHOD 02/06/2025 12:23 PM [facility] Basophils Relative 0.3 % LAB HEMETOLOGY METHOD 02/06/2025 12:23 PM [facility] Immature Granulocytes Relative 0.2 % LAB HEMETOLOGY METHOD 02/06/2025 12:23 PM [facility] Neutrophils Absolute 4.30 1.50 - 7.00 K/mcL LAB HEMETOLOGY METHOD 02/06/2025 12:23 PM [facility] Lymphocytes Absolute 1.24 1.00 - 5.00 K/mcL LAB HEMETOLOGY METHOD 02/06/2025 12:23 PM EDT [facility] Monocytes Absolute 0.50 0.20 - 1.00 K/mcL LAB HEMETOLOGY METHOD 02/06/2025 12:23 PM EDT [facility] Eosinophils Absolute 0.04 0.00 - 0.50 K/mcL LAB HEMETOLOGY METHOD 02/06/2025 12:23 PM EDT [facility] Basophils Absolute 0.02 0.00 - 0.20 K/mcL LAB HEMETOLOGY METHOD 02/06/2025 12:23 PM EDT [facility] Immature Granulocytes Absolute 0.01 0.00 - 0.03 K/mcL LAB HEMETOLOGY METHOD 02/06/2025 12:23 PM EDT [facility] Blood Venous blood specimen / Unknown Venipuncture / Unknown 02/06/2025 10:26 AM EDT 02/06/2025 10:26 AM EDT Jelena Olsen MD LAB BLOOD ORDERA BLES Final Result [facility] [address] [place] [address], * (ABNORMAL) Microalbumin creatinine urine ratio (02/06/2025 10:26 AM EDT) Creatinine, Urine 137.0 mg/dL LAB CHEMISTRY METHOD 02/06/2025 1:31 PM EDT [facility] Microalb, Ur 119.0(H) 0.0 - 29.0 mg/L LAB CHEMISTRY METHOD 02/06/2025 1:31 PM EDT [facility] Microalb/Crea t Ratio 87(H) <30 mg/g creat LAB CHEMISTRY METHOD 02/06/2025 1:31 PM EDT [facility] Urine Urine specimen from urethra / Unknown Non-blood Collection / Unknown 02/06/2025 10:26 AM EDT 02/06/2025 10:26 AM EDT Gaby CANAS LAB URINE ORDERABLES Final Result Performing Organization Address [facility]/ZIP Co de Phone Number [facility] [address] [place] [address], [place] [phone] * (ABNORMAL) Hemoglobin A1c (02/06/2025 10:26 AM EDT) Hemoglobin A1C 7.0(H) <6.5 % LAB CHEMISTRY METHOD 02/06/2025 9:29 PM EDT [facility] Mean Bld Glu Estim. 154 mg/dL LAB CHEMISTRY METHOD 02/06/2025 9:29 PM EDT [facility] Blood Venous blood specimen / Unknown Venipuncture / Unknown 02/06/2025 10:26 AM EDT 02/06/2025 10:26 AM EDT Gaby CANAS LAB BLOOD ORDERABLES Final Result Performing Organization Address [facility]/ZIP Co de Phone Number [facility] [address] [place] [address], [place] [phone] * POC glucose manually resulted (02/06/2025 10:02 AM EDT) Glucose POC 131 mg/dL Comment:Non Fasting Blood Capillary blood specimen / Unknown 02/06/2025 10:02 AM EDT Gaby CANAS POINT OF CARE TEST ENTER/ED IT ORDERABLES Final Result * Falls Risk Assessment (03/14/2024) Falls Risk Assessment Abstracted Historical Provider HEALTH MAINTENANCE Final Result * Diabetes Eye Exam (08/15/2023) Pathologist [facility] Diabetes: Annual Retina Eye Exam AbstractedAbstracted Historical Provider HEALTH MAINTENANCE Final Result * FIT-DNA (Cologuard) (08/02/2023) Pathologist [facility] Colorectal Cancer Screening: FIT-DNA (Cologuard) No Interpretatio n, Abstraced Historical Provider HEALTH MAINTENANCE Final Result * Hepatitis C Screening (09/17/2014) Pathologist [facility] Hepatitis C Screening Abstracted Historical Provider HEALTH MAINTENANCE Final Result from Last 3 Months or Most Recently Relevant to Health Maintenance Insurance [employer] MEDICARE ADVANTAGE Care Teams Animal Husbandry Teacher Relationship Specialty Start Date End Date Jelena Olsen MD [address] [facility], [place] PCP - General Internal Medicine 04/27/22
--- OUTSIDE RECORDS SUMMARY | 2025-04-27 14:33 | XMS_ITS | Encounter Summary ---
Author Organization [employer] Address [address] [facility] [address] [place] [address] Care Team Providers Care Computer Networking Instructor Name Role Phone Ofe Veras MD Primary Care Provider [phone] Encounter Details Date Type Department Care Team (Late st Contact Info) Description 10/05/2023 Abstract [facility] [address] [place], [place] [id number] Sobeida Self, ILIANA Social History Tobacco Use Types Packs/Day Years Used Date Smoking Tobacco: Never Passive Smoke Exposure: Never Smokeless Tobacco: Never Alcohol Use Standard Drinks/Week Comments Never 0 (1 standard drink = 0.6 oz pur e alcohol) Depression Answer Date Recorded Patient Health Questionnaire-9 Score 0 03/09/2023 Housing Stability Answer Date Recorded What is your housing situation today? I have humphreymelody finn 06/21/[address] you [...] documented as of this encounter Care Teams Computer Networking Instructor Relationship Specialty Start Date End Date Ofe Veras MD [address] [place] [address] PCP - General Family Medicine 12/22/22 02/18/24 documented as of this encounter
--- OUTSIDE RECORDS SUMMARY | 2025-04-27 14:33 | XMS_ITS | Clinical Summary ---
Author Organization [facility] Address [address] [facility] [address] [place] [address] Phone Care Team Providers Care Track Repair Worker Name Role Phone Ofe Veras MD Primary Care Provider [phone] Allergies No known active allergies Medications cholecalciferol [...] TREATED (Jun 2019) NOT TREATED (Jun 2019) [facility] Home Sleep Apnea Test: Date 05/11/2021; [...] patient's age to complete this topic Insurance [facility] MCR ([id number]) [facility] MCR ([id number]) Care Teams Track Repair Worker Relationship Specialty Start Date End Date Ofe Veras MD [address] [place] [id number] PCP - General Family Medicine 05/08/23
--- OUTSIDE RECORDS SUMMARY | 2025-04-27 14:33 | XMS_ITS | Encounter Summary ---
Author Organization [employer] Address [address] [place] [address] 7 [place] [address] Care Team Providers Care Water Pollution Control Inspector Name Role Phone Ofe Veras MD Primary Care Provider [phone] Reason for Visit * Reason Onset Date Comments Nurse Triage 11/20/2023 Encounter Details Date Type Department Care Team ([facility] st Contact Info) Description 11/20/2023 Telephone [facility] [address] [place], [place] [phone] Ofe Veras MD [address] [place] [address] Nurse Triage Social History Tobacco Use Types Packs/Day Years [...] AM EDT documented as of this encounter Miscellaneous Notes * Telephone Encounter - Arin Velasquez - 11/20/2023 9:40 AM EDT Symptom: Cough Outcome: Schedule an appointment to be seen within 24 hours Reason: Caller denied all higher acuity questions The caller accepted this outcome documented in this encounter Plan of Treatment Not on file documented as of this encounter Visit Diagnoses Not on filedocumented in this encounter Additional Health Concerns Assessment Noted Time PHQ-9 Depression Total Score: 0 03/09/20 23 10:06 AM EDT documented as of this encounter Care Teams Water Pollution Control Inspector Relationship Specialty Start Date End Date Ofe Veras MD [address] [place] [address] PCP - General Family Medicine 12/22/22 02/18/24 documented as of this encounter
== END 2025-04-27 13:38 | disposition home or self-care (01) ==
LOC: HO.HKA 13:13
PROVIDERS: Visit Provider Internal Medicine Nephrology
DX: N18.31 Chronic kidney disease, stage 3a (principal); E11.21 Type 2 diabetes mellitus with diabetic nephropathy; I10 Essential (primary) hypertension
CPT/HCPCS: 99214

== ENCOUNTER → 2025-04-27 13:12 | Outpatient (BNVA) | payer MEDICARE, SELFPAY | PROVIDERS: Visit Provider Internal Medicine Nephrology | DX: N18.31 Chronic kidney disease, stage 3a (principal); E11.21 Type 2 diabetes mellitus with diabetic nephropathy; I10 Essential (primary) hypertension | CPT/HCPCS: 99212 ==

== ENCOUNTER 2025-08-14 13:37 | Outpatient (REF) | payer MEDICARE, OTHER, SELFPAY ==
[2025-08-14 15:34] LABS: Anion Gap 13 (12-20); Blood Urea Nitrogen 23 mg/dL (9-16); Carbon Dioxide 27 mmol/L (22-29); Chloride 96 mmol/L (96-108); Estimated Glomerular Filt Rate > 60; Potassium 4.4 mmol/L (3.3-5.1); Sodium 132 mmol/L (135-145)
[2025-08-14 16:04] LABS: Protein/Creatinine Ratio, Ur 0.12 (<0.2); Total Protein Urine Random 18 mg/dL (<12)
--- OUTSIDE RECORDS SUMMARY | 2025-08-14 19:04 | XMS_ITS | Patient Health Record ---
Author Organization Aldair Alvarado MD PA Address [address] [facility] [address] [place] [id number] Care Team Providers Care Assistant Tennis Coach Name Role Phone Aldair Alvarado Primary Care [...] Status Risk Notes Problem Erectile dysfunction (disorder) (145406139) Male erectile dysfunction, unspecified (N52.9) Active confirmed Problem Type II diabetes mellitus without complication (899629362) Type 2 diabetes mellitus without complications (E11.9) Active confirmed Problem Essential hypertension (10774250) Essential (primary) hypertension (I10) Active confirmed Problem Mixed hyperlipidemia (512722953) Mixed hyperlipidemia (E78.2) Active confirmed Problem Vitamin D deficiency (33053970) Vitamin D deficiency, unspecified (E55.9) Active confirmed Problem Carcinoma in situ of prostate (36778245) 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) Active confirmed Problem Osteoarthritis of knee (139711957) Bilateral primary osteoarthritis of knee (M17.0) Active confirmed Problem Anxiety disorder (164622625) 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) Active confirmed Problem Lower urinary tract symptoms due to benign prostatic hypertrophy (48650659288672) Benign prostatic hyperplasia with lower urinary tract symptoms (N40.1) Active confirmed Problem Gastro-esophageal reflux disease without esophagitis (184062814) Gastro-esophageal reflux disease without esophagitis (K21.9) Active confirmed Problem Chronic kidney disease stage 3A (disorder) (546128093) Chronic kidney disease, stage 3a (N18.31) Active [...] Part B [address] [place] [phone] [id number] Lorenzo Russo Self - patient is the insured Medical (General) History Medical History History ICD Code Diabetes High cholesterol Hypertension Prostate problems Kidney disease Gout Surgical History Surgery Date(Month/Year) Hospitalization History Reason Date(Month/Year) Radiation for prostate cancer
--- OUTSIDE RECORDS SUMMARY | 2025-08-14 19:04 | XMS_ITS | Clinical Summary ---
Author Organization [address] Address [address] [facility] [place] [address] Phone Care Team Providers Care Document Scanner Name Role Phone Unavailable Primary Care Provider Unavailabl e Allergies No known active allergies Medications alcohol swabs pads, medicated Apply 1 Each topically daily. 024 Active aspirin 81 mg EC tablet Take 1 Tablet by mouth daily. 024 Active simvastatin (ZOCOR) 20 mg tabletIndications: Hyperlipidemia, unspecified Take 1 tablet (20 mg total) by mouth at bedtime. 90 tablet 1 025 Active diclofenac (VOLTAREN) 1 % topical gel Apply 2 g topically 2 (two) times a day. 100 g 025 Active methylPREDNISolone (MEDROL DOSPAK) 4 mg tablet Follow schedule on package instructions 1 each 025 Active glipiZIDE (GLUCOTROL) 10 mg tablet Take 1 tabs BID with mealsTake 1 tabs BID with meals 180 tablet 3 025 Active cyanocobalamin (VITAMIN B-12) 1,000 mcg tabletIndications: B12 deficiency Take 1 tablet (1,000 mcg total) by mouth 1 (one) time each day. 90 each 1 025 Active lisinopriL (PRINIVIL,ZESTRIL) 10 mg tabletIndications: Essential (primary) hypertension Take 1 tablet (10 mg total) by mouth 1 (one) time each day. 90 tablet 1 Active lancets lancetsIndications :Type 2 diabetes mellitus with microalbuminuria ([facility] V24, CMS/[facility] V28) Check blood sugar 1 times a day . Accu-check 100 each 11 025 2025 Active blood sugar diagnostic (Accu-Chek Guide test strips) test stripIndications:T ype 2 diabetes mellitus with microalbuminuria ([facility] V24, CMS/[facility] V28) Use to check BS daily 100 each 12 025 2025 Active blood-glucose meter (Accu-Chek Guide Glucose Meter) miscIndications:Ty pe 2 diabetes mellitus with microalbuminuria (CMS/[facility] V24, CMS/[facility] V28) Use to check BS daily 1 each 025 Active insulin glargine (Lantus Solostar U-100 Insulin) 100 unit/mL (3 mL) injection pen 10 units SC at [id number] units SC at bedtime 45 mL 3 025 Active blood-glucose sensor, Freestyle Leslie 3 Plus, (FreeStyle Leslie 3 Plus Sensor)Indications :Type 2 diabetes mellitus with microalbuminuria ([facility] V24, [facility] V28) Apply 1 sensor and change every 15 days. Change sensor every 15 days 6 each 1 025 Active blood-glucose,rece iver,cont (FreeStyle Leslie 3 [place]) miscIndications:Ty pe 2 diabetes mellitus with microalbuminuria (CMS/[facility] V24, CMS/[facility] V28) Used to monitor blood sugar 1 each 025 Active metFORMIN (GLUCOPHAGE) 1,000 mg tabletIndications: Type 2 diabetes mellitus with microalbuminuria ([facility] V24, CMS/[facility] V28) Take 1 tablet (1,000 mg total) by mouth 2 (two) times a day with meals.Take 1 tablet (1,000 mg total) by mouth 2 (two) times a day with meals. 180 tablet 3 025 Active pen needle, diabetic 32 gauge x 5/32 needleIndications: Type 2 diabetes mellitus with diabetic microalbuminuria, with long-term current use of insulin ([facility] V24, [facility] V28) Inject under the skin 1 (one) time each day. DX: E11.29 R80.9 100 each 2 Active cholecalciferol (Vitamin D3) 25 mcg (1,000 unit) tablet Take 2 tablets (2,000 Units total) by mouth 1 (one) time each day. 180 each 025 2025 Active tamsulosin (FLOMAX) 0.4 mg 24 hr capsule Take 2 capsules (0.8 mg total) by mouth 1 (one) time each day. 180 capsule Active pen needle, diabetic 32 gauge x 5/32 needleIndications: Type 2 diabetes mellitus with diabetic microalbuminuria, with long-term current use of insulin ([facility] V24, [facility] V28) Inject under the skin 1 (one) time each day. DX: E11.29 R80.9 100 each 2 025 2024 Discontinued(R eorder) insulin glargine (Lantus Solostar U-100 Insulin) 100 unit/mL (3 mL) injection pen 10 units SC at [id number] units SC at bedtime 45 mL 3 025 2024 Discontinued(R eorder) cholecalciferol (Vitamin D3) 25 mcg (1,000 unit) tablet Take 2 tablets (2,000 Units total) by mouth 1 (one) time each day. 360 each 025 2024 Discontinued(R eorder) tamsulosin (FLOMAX) 0.4 mg 24 hr capsule Take 2 capsules (0.8 mg total) by mouth 1 (one) time each day. 180 capsule 1 025 2024 Discontinued(R eorder) blood-glucose sensor (FreeStyle Leslie 3 Plus Sensor) deviceIndications: Type 2 diabetes mellitus with microalbuminuria ([facility] V24, [facility] V28) Change sensor every 15 days 6 each 1 025 2024 Discontinued(R eorder) blood-glucose,rece iver,cont (FreeStyle Leslie 3 [place]) miscIndications:Ty pe 2 diabetes mellitus with microalbuminuria ([facility] V24, [facility] V28) Used to monitor blood sugar 1 each 025 2024 Discontinued(R eorder) metFORMIN (GLUCOPHAGE) 1,000 mg tablet Take 1 tablet (1,000 mg total) by mouth 2 (two) times a day with meals. 180 tablet 3 025 2024 Discontinued(R eorder) lancets (OneTouch Delica Plus Lancet) 30 gaugeIndications:T ype 2 diabetes mellitus with other kidney complication, unspecified whether longwall shearer operator insulin use ([facility] V24, [facility] V28) Use to check bs dailyUse to check bs daily 100 each 11 025 2024 Discontinued OneTouch Ultra Test test stripIndications:T ype 2 diabetes mellitus with other kidney complication, unspecified whether assisted insulin use ([facility] V24, [facility] V28) Use to check bs dailyUse to check bs daily 100 each 11 025 2024 Discontinued blood-glucose meter (Engineering IdeasTouch Ultra2 Meter) miscIndications:Ty pe 2 diabetes mellitus with other kidney complication, unspecified whether assisted insulin use ([facility] V24, CMS/[facility] V28) USE TO CHECK BLOOD SUGAR DAILY 1 each 1 025 2024 Discontinued metFORMIN (GLUCOPHAGE) 1,000 mg tabletIndications: Type 2 diabetes mellitus with microalbuminuria ([facility] V24, [facility] V28) Take 1 tablet (1,000 mg total) by mouth 2 (two) times a day with meals.Take 1 tablet (1,000 mg total) by mouth 2 (two) times a day with meals. 180 tablet 3 025 2024 Discontinued(R eorder) Active Problems Problem Noted Date Diagnosed Date DJD (degenerative joint disease) of knee 024 Mixed hyperlipidemia 06/03/2024 HTN (hypertension) 06/03/2024 YISEL (obstructive sleep apnea) 06/03/2024 Overview (06/03/2024): NOT TREATED (Jun 2019) [facility] Home Sleep Apnea Test: Date 05/11/2021; Wt [...] EST): Continue follow-up with [facility]. Continue tamsulosin 0.8 mg daily. Recent [...] 82. Well controlled Type 2 diabetes mellitus with renal complication 02/25/2021 Vitamin D deficiency 06/04/2018 Assessment & Plan (10/17/2024 12:33 PM EST): Continue vitamin D daily Orders: Vitamin D 25 hydroxy; Future B12 deficiency 12/28/2017 Assessment & Plan (10/17/2024 12:33 PM EST): Will update labs to determine if he needs to continue/resume B12 supplements Orders: Vitamin B12; Future Depression with anxiety 01/12/2015 Erectile dysfunction 09/21/2014 Nocturia 09/21/2014 Type 2 diabetes mellitus with microalbuminuria 0 09/21/2014 Assessment & Plan (10/17/2024 12:33 PM [...] Encounters Date Type Department Care Team Description 08/04/2025 Telephone Endocrinology - [address] [phone] [place] 07/31/2025 Telephone Endocrinology - [address] [phone] Sherrill Velez [place] 07/28/2025 Telephone Endocrinology - [address] [phone] Tod Austin [place] 07/27/2025 Telephone Endocrinology - [address] [phone] [place] 06/02/2025 Results Follow-Up Endocrinology - [address] [phone] [place] 05/27/2025 2:30 PM EDT Office Visit Endocrinology - [place] [address] [place] [phone] [place] Type 2 diabetes mellitus with stage 3 chronic kidney disease, unspecified whether longwall shearer operator insulin use, unspecified whether stage 3a or 3b CKD ([facility] V24, [facility] V28) (Primary Dx) 05/26/2025 9:30 AM EDT Office Visit Orthopedic Surgery - [address] [phone] Jarret Mcdowell, DPM Hammer toe of left foot (Primary Dx); Diabetic mononeuropathy simplex ([facility] V24, [facility] V28); Acquired hammer toe of right foot; Corns and callosities 05/20/2025 Telephone Endocrinology [address] [place] [phone] [place] from Last 3 Months Immunizations Immunization Administration Dates Next Due Influenza Quadravalent, MDCK , 0.5ml, preservative free (Flucelvax) 6mo and older 09/18/2019,06/03/2018 Influenza trivalent, 0.5mL ( Fluzone High-dose) 65yo and older 08/01/2024,07/25/2023,06/05/2022,2020 Influenza trivalent, with preservative (Fluzone; Afluria) 6mo and older 07/30/2017,09/16/2014 Influenza, Unspecified 06/26/2022,2020,05/18/2016,2014 PPD Test 10/09/2018 Digital Trowel SARS-CoV-2 COVID-19, mRNA, LNP-S, preservative free 12/29/2020,11/29/2020 [...] Date Site/Laterality Comments OTHER SURGICAL HISTORY PROCEDURE: ID RPR TUNICA VAGINALIS HYDROCELE BOTTLE TYPE; COMMENT: right testicle HERNIA REPAIR PROCEDURE: HISTORICAL HERNIA REPAIR/ING; COMMENT: bilateral KNEE SURGERY Right PROCEDURE: HISTORICAL KNEE SURGERY OTHER SURGICAL HISTORY PROCEDURE: HISTORICAL ARM SURGERY COLONOSCOPY 2011 PROCEDURE: HISTORICAL COLONOSCOPY; COMMENT: Date approximate, negative examination performed in [place] by history. COLONOSCOPY 07/31/2016 PROCEDURE: HISTORICAL COLONOSCOPY; COMMENT: Mild radiation proctitis. CHOLECYSTECTOMY 01/08/2018 PROCEDURE: LAPAROSCOPY, CHOLECYSTECTOMY Medical History Medical History Date Comments Dyslipidemia DX:Dyslipidemia HTN (hypertension) DX:HTN (hyper tension) Anxiety 09/21/2014 DX:Anxiety Nocturia 09/21/2014 DX:Nocturia Erectile dysfunction 09/21/2014 DX:Erectile dysfunction Hypertriglyceridemia 09/21/2014 DX:Hypertri glyceridemia DM (diabetes mellitus), type 2 with peripheral vascular complications ([facility] V24, [facility] V28) 09/21/2014 DX:DM (diabetes mellitus), type 2 [...] stage 3, GFR 30-59 ml/min (CMS/HCC V24, CMS/[facility] V28) 02/25/2021 DX:CKD (chroni c kidney disease) stage 3, GFR 30-59 ml/min ([facility]) Depression with anxiety 01/12/2015 DX:Depre ssion with anxiety Normocytic anemia 01/19/2017 DX:Normocytic anemia Type 2 diabetes mellitus wit h renal complication (CMS/HCC V24, [facility] V28) 02/25/2021 DX:Type 2 diab etes mellitus [...] Not Answered Alcohol Use Standard Drinks/Week Comments No 0 [...] care for your loved ones. For example, child care assistant or elderly care for an older adult? [...] Date Recorded What is your living situation? Unrecognized valu e 10/17/2024 Sex and Gender Information Value Date Recorded Sex Assigned at Male 09/05/2024 5:56 PM EST Legal Sex Male 11:12 AM EST Gender Identity Male 09/05/2024 5:56 PM EST Sexual Orientation Straight 09/05/2024 5: 56 PM EST Last Filed Vital Signs Vital Sign Reading Time Taken Comments Blood Pressure 136/68 05/27/2025 2:47 PM EDT Pulse 78 05/27/2025 2:47 PM EDT Temperature 36.5 C (97.7 F) 05/27/2025 2:47 PM EDT Respiratory Rate 14 04/29/2025 2:32 PM EDT Oxygen Saturation 97% 04/29/2025 2:32 PM EDT Inhaled Oxygen Concentration - - Weight 85.2 kg (187 lb 12.8 oz) 05/27/2025 2:47 PM EDT Height 180.3 cm (5' 11 ) 05/27/2025 2:47 PM EDT Body Mass Index 26.19 05/27/2025 2:47 PM EDT Plan of Treatment Upcoming Encounters Date Type Department Care Team (Late st Contact Info) Description 08/25/2025 10:15 AM EST Office Visit Endocrinology - [address] [phone] [place] [address] [place] [address] 11/23/2025 9:15 AM EDT Office Visit Orthopedic Surgery - [place] [address] [place] [address] [place] [phone] Jarret Mcdowell DPBronson [address] [phone] Health Maintenance Due Date Last Done Comments Zoster Vaccines (1 of 2) 03/15/2016 01/19/2016 Medicare Annual Wellness Visit 08/12/2022 Falls Risk Assessment 03/14/2025 03/14/2024 Influenza Vaccine (#1) 2025 , 07/25/2023, 06/26/2022, Additional history exists Diabetes: Annual Foot Exam 06/17/2025 06/17/2024 Diabetes: Annual Retina Eye Exam 07/22/2025 07/22/2024, 08/15/2023 Social Influencers of Health Screening 10/17/2025 10/17/2024 Diabetes: Blood Sugar Control Test (HGBA1C) 11/26/2025 05/29/2025, 02/06/2025, 08/15/2024, Additional history exists Diabetes: Annual Urine Albumin-Creatinine Ratio (uACR) 02/06/2026 [...] Procedure Name Priority Date/Time Associated Diagnosis Comments ID SLEEP STUDY ATTENDED 07/18/2025 HEMOGLOBIN A1C Routine 05/29/2025 8:02 AM EDT Type 2 diabetes mellitus with stage 3 chronic kidney disease, unspecified whether assisted insulin use, unspecified whether stage 3a or 3b CKD (CMS/HCC V24, CMS/HCC V28) POC GLUCOSE Routine 05/27/2025 2:49 PM EDT Type 2 diabetes mellitus with stage 3 chronic kidney disease, unspecified whether longwall shearer operator insulin use, unspecified whether stage 3a or 3b CKD (CMS/HCC V24, CMS/HCC V28) BASIC METABOLIC PANEL Routine 04/24/2025 8:06 AM EDT Chronic kidney disease, stage III (moderate) (CMS/HCC V24, CMS/HCC V28) Hyposmolality syndrome MICROALBUMIN CREATININE URINE RATIO Routine 02/06/2025 10:26 AM EDT Type 2 diabetes mellitus with other kidney complication, unspecified whether assisted insulin use ([facility] V24, [facility] V28) LIPID PANEL WITH REFLEX TO DIRECT LDL Routine 02/06/2025 10:26 AM EDT Type 2 diabetes mellitus with other kidney complication, unspecified whether assisted insulin use ([facility] V24, [facility] V28) FALLS RISK ASSESSMENT Routine 03/14/2024 DIABETES EYE EXAM Routine 08/15/2023 FIT-DNA Routine 08/02/2023 HEPATITIS C SCREENING Routine 09/17/2014 from Last 3 Months or Most Recently Relevant to Health Maintenance Results * General sleep study (07/18/2025) us Provider [facility] SLEEP CENTER ORDERABLES Final Result * (ABNORMAL) Hemoglobin A1c (05/29/2025 8:02 AM EDT) Hemoglobin A1C 7.2(H) <6.5 % LAB CHEMISTRY METHOD 05/29/2025 1:[address] [facility] Mean Bld Glu Estim. 160 mg/dL LAB CHEMISTRY METHOD 05/29/2025 1:[address] [facility] Blood Venous blood specimen / Unknown Venipuncture / Unknown 05/29/2025 8:02 AM EDT 05/29/2025 8:02 AM EDT us Gaby CANAS LAB BLOOD ORDERABLES Final Result [facility] [address] [place] [address], [place] [phone] * POC glucose manually resulted (05/27/2025 2:49 PM EDT) Glucose POC 227 mg/dL Blood Capillary blood specimen / Unknown 05/27/2025 2:49 PM EDT us Gaby CANAS POINT OF CARE TEST ENTER/ED IT ORDERABLES Final Result * (ABNORMAL) Basic metabolic panel (04/24/2025 8:06 AM EDT) Sodium 138 133 - 145 mmol/L LAB CHEMISTRY METHOD 04/24/2025 9:41 AM [facility] Potassium 4.9 3.5 - 5.5 mmol/L LAB CHEMISTRY METHOD 04/24/2025 9:41 AM [facility] Chloride 103 96 - 110 mmol/L LAB CHEMISTRY METHOD 04/24/2025 9:41 AM [facility] CO2 27 21 - 32 mmol/L LAB CHEMISTRY METHOD 04/24/2025 9:41 AM [facility] Anion Gap 8 3 - 11 LAB CHEMISTRY METHOD 04/24/2025 9:41 AM [facility] Glucose 160(H) 70 - 100 mg/dL LAB CHEMISTRY METHOD 04/24/2025 9:41 AM [facility] BUN 22 5 - 25 mg/dL LAB CHEMISTRY METHOD 04/24/2025 9:41 AM [facility] Creatinine 1.12 0.70 - 1.30 mg/dL LAB CHEMISTRY METHOD 04/24/2025 9:41 AM [facility] eGFR 71 >=60 mL/min/1. 73m2 LAB CHEMISTRY METHOD 04/24/2025 9:41 AM [facility] Comment:Calculation based on the Chronic Kidney Disease Epidemiology Collaboration (CKD-EPI) equation refit without adjustment for race. BUN/Creatinine Ratio 19.6 LAB CHEMISTRY METHOD 04/24/2025 9:41 AM [facility] Calcium 9.2 8.5 - 10.5 mg/dL LAB CHEMISTRY METHOD 04/24/2025 9:41 AM [facility] Blood Venous blood specimen / Unknown Venipuncture / Unknown 04/24/2025 8:06 AM EDT 04/24/2025 8:58 AM EDT us Hafsa Rosita Mathew NP LAB BLOOD ORDERABLES Final Result [facility] [address] [place] [address], [place] [phone] * Lipid panel with reflex to direct LDL (02/06/2025 10:26 AM EDT) Cholesterol 138 0 - 200 mg/dL LAB CHEMISTRY METHOD 02/06/2025 2:[address] [facility] Triglycerides 139 0 - 150 mg/dL LAB CHEMISTRY METHOD 02/06/2025 2:[address] [facility] HDL 43 >=40 mg/dL LAB CHEMISTRY METHOD 02/06/2025 2:[address] [facility] LDL Calculated 67 0 - 100 mg/dL LAB CHEMISTRY METHOD 02/06/2025 2:[address] [facility] VLDL Cholesterol [place] 27.8 mg/dL LAB CHEMISTRY METHOD 02/06/2025 2:[address] [facility] Non HDL Chol. (LDL+VLDL) 95 <145 mg/dL LAB CHEMISTRY METHOD 02/06/2025 2:[address] [facility] Chol/HDL Ratio 3.2 0.0 - 4.4 LAB CHEMISTRY METHOD 02/06/2025 2:[address] [facility] Blood Venous blood specimen / Unknown Venipuncture / Unknown 02/06/2025 10:26 AM EDT 02/06/2025 10:26 AM EDT us Gaby CANAS LAB BLOOD ORDERABLES Final Result [facility] [address] [place] [address], [place] [phone] * (ABNORMAL) Microalbumin creatinine urine ratio (02/06/2025 10:26 AM EDT) [facility] Creatinine, Urine 137.0 mg/dL LAB CHEMISTRY METHOD 02/06/2025 1:[address] [facility] Microalb, Ur 119.0(H) 0.0 - 29.0 mg/L LAB CHEMISTRY METHOD 02/06/2025 1:[address] [facility] Microalb/Crea t Ratio 87(H) <30 mg/g creat LAB CHEMISTRY METHOD 02/06/2025 1:[address] [facility] Urine Urine specimen from urethra / Unknown Non-blood Collection / Unknown 02/06/2025 10:26 AM EDT 02/06/2025 10:26 AM EDT Gaby CANAS LAB URINE ORDERABLES Final Result [facility] [address] [place] [address], * Falls Risk Assessment (03/14/2024) [facility] Falls Risk Assessment Abstracted [facility] [place] HEALTH MAINTENANCE Final Result * Diabetes Eye Exam (08/15/2023) [facility] Diabetes: Annual Retina Eye Exam AbstractedAbstracted [facility] [place] HEALTH MAINTENANCE Final Result * FIT-DNA (Cologuard) (08/02/2023) [facility] Colorectal Cancer Screening: FIT-DNA (Cologuard) No Interpretatio n, Abstraced Historical Provider HEALTH MAINTENANCE Final Result * Hepatitis C Screening (09/17/2014) [facility] Hepatitis C Screening Abstracted [facility] Provider HEALTH MAINTENANCE Final Result from Last 3 Months or Most Recently Relevant to Health Maintenance Insurance [employer] MEDICARE ADVANTAGE [place]ICA[place] - [place]
--- OUTSIDE RECORDS SUMMARY | 2025-08-14 19:04 | XMS_ITS | Encounter Summary ---
Author Organization [facility] Address [address] 7 [place] [address] Care Team Providers Care Cable Layer Name Role Phone Ofe Veras MD Primary Care Provider [phone] Encounter Details Date Type Department Care Team (Latest Contact Info) Description 04/01/[address] [facility] CONVERSIONS Dental, Provider, DDS Social History Tobacco Use Types Packs/Day Years Used Date Smoking Tobacco: Never Assessed Sex and Gender Information Value Date Recorded Sex Assigned at Male 07/03/2022 10:30 AM EDT Legal Sex Male 10:30 AM EDT Gender Identity Male 07/03/2022 10:30 AM EDT Sexual Orientation Straight 07/03/2022 10 :30 AM EDT documented as of this encounter Plan of Treatment Upcoming Encounters Date Type Department Care Team ( st Contact Info) Description 09/07/2025 10:30 AM EST Office Visit [facility] MED & PEDS [address] [place] [address] Ofe Veras MD [address] [place] [address] 01/15/2026 8:00 AM EDT Office Visit [facility] ADULT DENTAL [address] [place] [address] Nasir Esquivel documented as of this encounter Visit Diagnoses Not on filedocumented in this encounter Care Teams Cable Layer Relationship Specialty Start Date End Date Ofe Veras MD [address] [place] [phone] PCP - General Family Medicine 12/22/22 02/18/24 documented as of this encounter
--- OUTSIDE RECORDS SUMMARY | 2025-08-14 19:04 | XMS_ITS | Encounter Summary ---
Author Organization [facility] Address [address] [place] [address] Care Team Providers Care Motorcoach Operator Name Role Phone Ofe Veras MD Primary Care Provider [phone] Encounter Details Date Type Department Care Team (Latest Contact Info) Description 05/31/2022 Abstract [facility] CONVERSIONS Dental, Provider, DDS Social History Tobacco [...] Description 09/07/2025 10:30 AM EST Office Visit [facility] MED & PEDS [address] [place] [address] Ofe Veras MD [address] [place] [address] 01/15/2026 8:00 AM EDT Office Visit [facility] ADULT DENTAL [address] [place] [address] Nasir Esquivel documented as of this encounter Visit Diagnoses Not on filedocumented in this encounter Care Teams Motorcoach Operator Relationship Specialty Start Date End Date Ofe Veras MD [address] [place] [id number] PCP - General Family Medicine 12/22/22 02/18/24 documented as of this encounter
--- OUTSIDE RECORDS SUMMARY | 2025-08-14 19:04 | XMS_ITS | Encounter Summary ---
Author Organization [employer] Address [address] [place] [address] Care Team Providers Care Licensed Insurance Agent Name Role Phone Ofe Veras MD Primary Care Provider [phone] Encounter Details Date Type Department Care Team (Late st Contact Info) Description 10/05/2023 Abstract [facility] [address] [place] [address] Sobeida Self, [place] Social History Tobacco Use [...] Care Team (Late st Contact Info) Description 09/07/2025 10:30 AM EST Office Visit [facility] [address] [place] [address] Ofe Veras MD [address] [place] [address] 01/15/2026 8:00 AM EDT Office Visit [facility] [address] [place] [address] Nasir Esquivel documented as of this encounter Visit Diagnoses Not on filedocumented in this encounter Additional Health Concerns Assessment Noted Time PHQ-9 Depression Total Score: 0 03/09/20 23 10:06 AM EDT documented as of this encounter Care Teams Licensed Insurance Agent Relationship Specialty Start Date End Date Ofe Veras MD [address] [place] [phone] PCP - General Family Medicine 12/22/22 02/18/24 documented as of this encounter
--- OUTSIDE RECORDS SUMMARY | 2025-08-14 19:04 | XMS_ITS | Encounter Summary ---
Author Organization [employer] Address [address] [place] [address] Care Team Providers Care Sales And Support Center Agent Name Role Phone Jelena Olsen MD Primary Care Pr ovider Reason for Visit * Reason Onset Date Comments OFFICE NOTES 07/27/2025 Encounter Details Date Type Department Care Team ([facility] Contact Info) Description 07/27/2025 Telephone [facility] [address] [place] [phone] [place] [address] [place] [address] Social History Tobacco Use Types Packs/Day Years [...] care for your loved ones. For example, child's nurse or elderly care for an older adult? [...] PM EST documented as of this encounter Plan of Treatment Upcoming Encounters Date Type Department Care Team ([facility] st Contact Info) Description 08/25/2025 10:15 AM EST Office Visit [facility] - [address] [phone] [place] [address] [place] [address] 11/23/2025 9:15 AM EDT Office Visit [facility] [place] [address] [phone] Jarret Mcdowell, DPM [address] [phone] documented as of this encounter Visit Diagnoses Not on filedocumented in this encounter Additional Health Concerns Assessment Noted Time PHQ-9 Depression Total Score: 0 10/17/19 8:55 AM EST documented as of this encounter Care Teams Sales And Support Center Agent Relationship Specialty Start Date End Date Jelena Olsen MD [address] [place], [place] PCP - General Internal Medicine 04/27/22 08/11/25 documented as of this encounter
--- OUTSIDE RECORDS SUMMARY | 2025-08-14 19:04 | XMS_ITS | Encounter Summary ---
Author Organization [employer] Address [address] [place] [address] Care Team Providers Care Automatic Hemmer Name Role Phone Ofe Veras MD Primary Care Provider [phone] Reason for Visit * Reason Onset Date Comments Nurse Triage 11/20/2023 Encounter Details Date Type Department Care Team ([facility] st Contact Info) Description 11/20/2023 Telephone [facility] [address] [place] [address] Ofe Veras MD [address] [place] [address] Nurse Triage Social History Tobacco Use Types [...] Description 09/07/2025 10:30 AM EST Office Visit [facility] [address] [place] [address] Ofe Veras MD [address] [place] [address] 01/15/2026 8:00 AM EDT Office Visit [facility] ADULT [facility] [address] [place] [address] Nasir Esquivel documented as of this encounter Visit Diagnoses Not on filedocumented in this encounter Additional Health Concerns Assessment Noted Time PHQ-9 Depression Total Score: 0 03/09/20 23 10:06 AM EDT documented as of this encounter Care Teams Automatic Hemmer Relationship Specialty Start Date End Date Ofe Veras MD [address] [place] [address] PCP - General Family Medicine 12/22/22 02/18/24 documented as of this encounter
--- OUTSIDE RECORDS SUMMARY | 2025-08-14 19:04 | XMS_ITS | Encounter Summary ---
Author Organization [employer] Address [address] [place] [address] Care Team Providers Care Chronometer Repairer Name Role Phone Unavailable Primary Care Provider Unavailabl e Encounter Details Date Type Department Care Team ([facility] Contact Info) Description 08/12/2025 Orders Only [facility] [address] [place] [address] Provider, MD Monica Social History Tobacco Use Types Packs/Day Years [...] Description 09/07/2025 10:30 AM EST Office Visit [facility] MED [facility] PED[facility] [address] [place] [address] Ofe Veras MD [address] [place] [address] 01/15/2026 8:00 AM EDT Office Visit [facility] ADULT DENTAL [address] [place] [address] Nasir Esquivel documented as of this encounter Goals Goal Patient Goal Type Associated Problems Recent Progress Patient-Stated? Author Help patients manage their type 2 diabetes Care Plan Help patients manage their type 2 diabetes Rashad Garcia DMD Weekly blood pressure task Care Plan Weekly blood pressure task Rashad Garcia DMD Help patients manage their type 2 diabetes Care Plan Help patients manage their type 2 diabetes Rashad Garcia DMD Patient has chronic kidney disease Care Plan Patient has chronic kidney disease Rashad Garcia DMD Weekly blood pressure task Care Plan Weekly blood pressure task Rashad Garcia DMD Patient has chronic kidney disease Care Plan Patient has chronic kidney disease Rashad Garcia DMD documented as of this encounter Procedures Procedure Name Priority Date/Time Associated Diagnosis Comments CREATININE, SERUM Routine 08/14/2025 1:5 4 PM EST UREA NITROGEN (BUN) Routine 08/14/2025 1 :54 PM EST ELECTROLYTE PANEL Routine 08/14/2025 1:5 4 PM EST HEMOGLOBIN A1C Routine 08/14/2025 1:52 PM EST PROTEIN CREATININE RATIO, URINE Routine 08/14/2025 1:50 PM EST DIABETES EYE EXAM Routine 07/24/2025 documented in this encounter Results * Creatinine, Serum (08/14/2025 1:54 PM EST) Creatinine, Serum 1.03 0.5 - 1.4 mg/dL [facility] Estimated Glomerular Filt Rate >60 [facility] Comment:Chronic Kidney Disea se: Estimated GFR < 60 mL/min/[id number] Kidney Disease: Estimated GFR < 15 mL/min/1.73m2 08/14/2025 1:54 PM EST 08/14/2025 1:54 PM EST Generic External Data Provider LAB BLOOD ORDERAB LES Final Result Performing Organization Address City/[facility]/ZIP Co de Phone Number [facility] [address] [place] [phone] * (ABNORMAL) BUN (Blood Urea Nitrogen) (08/14/2025 1:54 PM EST) Urea Nitrogen (BUN) 23(H) 9 - 16 mg/dL [facility] 08/14/2025 1:54 PM EST 08/14/2025 1:54 PM EST Generic External Data Provider LAB BLOOD ORDERAB LES Final Result Performing Organization Address City/[facility] Co de Phone Number [facility] [address] [place] [phone] * (ABNORMAL) Electrolyte Panel (08/14/2025 1:54 PM EST) Sodium 132(L) 135 - 145 mmol/L [facility] Potassium 4.4 3.3 - 5.1 mmol/L [facility] Chloride 96 96 - 108 mmol/L [facility] Carbon Dioxide 27 22 - 29 mmol/L [facility] Anion Gap 13 12 - 20 [facility] 08/14/2025 1:54 PM EST 08/14/2025 1:54 PM EST us Generic External Data Provider LAB BLOOD ORDERAB LES Final Result Performing Organization Address [facility] Co de Phone Number [facility] [address] [place] [phone] * (ABNORMAL) Hemoglobin A1c (08/14/2025 1:52 PM EST) Hemoglobin A1c 6.8(H) <6.0 % [facility] Comment:Hemoglobin A1C Refer ence Range Adults: 4.8 - 6.0 % Non diabetic: < 6.0 % Goal: < 7.0 %Additional Action Suggested: > 8.0 %Note: Hemoglobin A1c results are invalid for patients with abnormal amounts of HbF. Blood transfusions may impact the HbA1c concentration in the patient sample. Estimated Average Glucose 148 mg/dL [facility] Comment:eAG = Estimated ave rage glucose which is %A1C expressed asaverage glucose, using the formula of the F3L-OhfnffaOpqtsqe Glucose study (ADAG), Diabetes Care, Vol.31,#8,Apr. 2007 08/14/2025 1:52 PM EST 08/14/2025 1:54 PM EST us Generic External Data Provider LAB BLOOD ORDERAB LES Final Result Performing Organization Address [facility] [place] [facility] Co de Phone Number [facility] [address] [place] [phone] * (ABNORMAL) Protein Creatinine Ratio, Urine (08/14/2025 1:50 PM EST) Creatinine, Urine 149.34 mg/dL [facility] Protein, Total, Random Urine 18(H) <12 mg/dL [facility] Protein/Creati nine Ratio, Ur 0.12 <0.2 [facility] Comment:The spot urine prote in:creatinine ratio may increase to 0.3during normal . 08/14/2025 1:50 PM EST 08/14/2025 2:49 PM EST us Generic External Data Provider LAB URINE ORDERAB LES Final Result [facility] [address] [place] [phone] * Diabetes Eye Exam (07/24/2025) Historical Provider HEALTH MAINTENANCE Final Result documented in this encounter Visit Diagnoses Not on filedocumented in this encounter Additional Health Concerns Active Problems Noted Date Diagnosed Date Help patients manage their type 2 diabetes 07/16 Weekly blood pressure task 07/16/2025 Help patients manage their type 2 diabetes 07/16 Patient has chronic kidney disease 07/16/2025 Weekly blood pressure task 07/16/2025 Patient has chronic kidney disease 07/16/2025 Assessment Noted Time PHQ-9 Depression Total Score: 0 03/09/20 23 10:06 AM EDT documented as of this encounter
--- OUTSIDE RECORDS SUMMARY | 2025-08-14 19:04 | XMS_ITS | Encounter Summary ---
Author Organization [employer] Address [address] [facility] [facility] [address] [place] [address] Care Team Providers Care Instructor Ground Services Name Role Phone Unavailable Primary Care Provider Unavailabl e Encounter Details Date Type Department Care Team (Late st Contact Info) Description 07/25/2024 Orders Only [facility] [address] [place] [address] ProviderMonica MD Social History Tobacco Use Types [...] Description 09/07/2025 10:30 AM EST Office Visit [facility] [address] [place] [address] Ofe Veras MD [address] [place] [address] 01/15/2026 8:00 AM EDT Office Visit [facility] ADULT [facility] [address] [place] [address] Nasir Esquivel documented as of this encounter Procedures Procedure Name Priority Date/Time Associated Diagnosis Comments HM DIABETES: URINE PROTEIN SCREENING Routine 07/23/2024 2:50 PM EST documented in this encounter Results * HM Diabetes: Urine Protein Screening (07/23/2024 2:50 PM EST) Urine Historical Provider HEALTH MAINTENANCE Final Result documented in this encounter Visit Diagnoses Not on filedocumented in this encounter Additional Health Concerns Assessment Noted Time PHQ-9 Depression Total Score: 0 03/09/20 23 10:06 AM EDT documented as of this encounter
--- OUTSIDE RECORDS SUMMARY | 2025-08-14 19:04 | XMS_ITS | Clinical Summary ---
Author Organization [employer] Address [address] [place] [address] Care Team Providers Care Manager Strategic Name Role Phone Unavailable Primary Care Provider [...] NEEDED HEARTBURN 90 tablet 1 4 Active cyanocobalamin (Vitamin B-12) 1000 MCG tablet Take 1 tablet by mouth Once per day. 5 Active Active Problems Problem Noted Date Diagnosed [...] and ENT for further evaluation. Prostate cancer ([facility]) 12/22/2022 DJD (degenerative joint disease) of knee [...] medication: Famotidine. Stage 3a chronic kidney disease (CMS/HCC) 2020 Simple renal cyst 03/09/2021 YISEL (obstructive sleep apnea) 01/18/2021 Overview (10/05/2022): NOT TREATED (Jun 2019) NOT TREATED (Jun 2019) [facility] Home Sleep Apnea Test: Date 05/11/2021; Wt [...] sleep apnea test. NOT TREATED (Jun 2019) [employer] Home Sleep Apnea Test: Date 05/11/2021; Wt [...] Center 11/02/2023 9:00 AM Sobeida Maloney DMD [facility] 11/16/2023 9:15 AM Ofe Veras MD [facility] Assessment & Plan (10/05/2023 2:31 PM [...] Diagnosed Date Resolved Date Bronchitis 04/07/2021 12/22/2022 Encounters Date Type Department Care Team Description 08/12/2025 Orders Only [facility] [address] [place] [address] Monica Paulino MD 07/14/2025 8:00 AM EST Office Visit [facility] ADULT DENTAL [address] [place] [address] Nasri Esquivel Dental calculus (Primary Dx); Partial edentulism, unspecified edentulism class 07/07/2025 Telephone [facility] [address] [place] [address] Ofe Veras MD New patient appointment from Last 3 Months Immunizations Immunization Administration [...] Sign Reading Time Taken Comments Blood Pressure 126/56 07/14/2025 8:25 AM EST Pulse 68 07/14/2025 8:25 AM EST Temperature 36.2 C (97.1 F) 11/30/2023 10:14 AM EDT Respiratory Rate 18 11/30/2023 10:14 AM EDT Oxygen Saturation 99% 11/30/2023 10:14 AM EDT Inhaled Oxygen Concentration - - Weight 85.4 kg (188 lb 3.2 oz) 11/30/2023 10:14 AM EDT Height 176 cm (5' 9.29 ) 11/30/2023 10:14 AM EDT Body Mass Index 27.56 11/30/2023 10:14 AM EDT Plan of Treatment Upcoming Encounters Date Type Department Care Team (Late st Contact Info) Description 09/07/2025 10:30 AM EST Office Visit [facility] [address] [place] [address] Ofe Veras MD [address] [place] [address] 01/15/2026 8:00 AM EDT Office Visit [facility] ADULT DENTAL [address] [place] [address] Nasir Esquivel Health Maintenance Due Date Last Done Comments CT Colonography 1954 Colonoscopy 1954 FIT 1954 Sigmoidoscopy 1954 Alcohol/Substance Use Screening 1966 Hepatitis C Screening 1972 RSV Patients and Patients Aged 60 years or older (1 - Risk 50-74 years 1-dose series) 2004 Zoster Vaccines (2 of 3) 03/15/2016 01/19/2016 Lipid Panel 01/02/2024 01/01/2023 Depression Screening 03/09/2024 03/09/2023, 03/09/20 23 FOBT 08/02/2024 08/02/2023 Diabetes: Foot Exam 08/10/2024 08/10/2023, 08/10/2023, 08/10/2023, Additional history exists SDOH Screening 11/07/2024 11/08/2023 COVID-19 Vaccine (3 - season) 2025 12/29/2020, 11/29/2020 Influenza Vaccine (#1) 2025 , 07/25/2023, 06/26/2022, Additional history exists Dental Oral Exam 01/12/2026 07/14/2025, 11/23/2023 Dental Prophylaxis 01/12/2026 07/14/2025, 0 11/23/2023, 07/13/2023 Diabetes: Urine Protein Screening 02/06/2026 08/14/2025, 02/06/2025, 08/15/2024, Additional history exists Diabetes: Hemoglobin A1C 02/12/2026 025, 05/29/2025, 11/21/2023, Additional history exists Tobacco Screening 07/14/2026 07/14/2025 Dental X-Ray: Bitewings 07/15/2026 07/14/20 25, 11/23/2023, 11/23/2023 Colorectal Cancer Screening 08/02/2026 FIT DNA/Cologuard 08/02/2026 08/02/2023 Dental X-Ray: Full Mouth 11/23/2026 11/23/2023, 11/02 Eye Exam 07/24/2027 07/24/2025, 01/0 01/2024, 01/03/2017, Additional history exists DTaP/Tdap/Td Vaccines (3 - Td or Tdap) [...] on patient's age to complete this topic Goals Goal Patient Goal Type Associated Problems Recent Progress Patient-Stated? Author Help patients manage their type 2 diabetes Care Plan Help patients manage their type 2 diabetes No Rashad Jones DMD Weekly blood pressure task Care Plan Weekly blood pressure task No Rashad Jones DMD Help patients manage their type 2 diabetes Care Plan Help patients manage their type 2 diabetes No Rashad Jones DMD Patient has chronic kidney disease Care Plan Patient has chronic kidney disease No Rashad Jones DMD Weekly blood pressure task Care Plan Weekly blood pressure task No Rashad Jones DMD Patient has chronic kidney disease Care Plan Patient has chronic kidney disease No Rashad Jones DMD Procedures Procedure Name Priority Date/Time Associated Diagnosis Comments CREATININE, SERUM Routine 08/14/2025 1:5 4 PM EST UREA NITROGEN (BUN) Routine 08/14/2025 1 :54 PM EST ELECTROLYTE PANEL Routine 08/14/2025 1:5 4 PM EST HEMOGLOBIN A1C Routine 08/14/2025 1:52 PM EST PROTEIN CREATININE RATIO, URINE Routine 08/14/2025 1:50 PM EST DIABETES EYE EXAM Routine 07/24/2025 PERIODIC ORAL EVALUATION - ESTABLISHED PATIENT Routine 07/14/2025 8:00 AM EST Partial edentulism, unspecified edentulism class INTRAORAL - PERIAPICAL FIRST RADIOGRAPHIC IMAGE Routine 07/14/2025 8:00 AM EST Partial edentulism, unspecified edentulism class BITEWINGS - 4 RADIOGRAPHIC IMAGES Routine 07/14/2025 8:00 AM EST Partial edentulism, unspecified edentulism class CASE PRESENTATION, DETAILED AND EXTENSIVE TREATMENT PLANNING Routine 07/14/2025 8:00 AM EST Partial edentulism, unspecified edentulism class ORAL HYGIENE INSTRUCTIONS Routine 07/14/2025 8:00 AM EST Partial edentulism, unspecified edentulism class PROPHYLAXIS - ADULT Routine 07/14/2025 8 :00 AM EST Partial edentulism, unspecified edentulism class INTRAORAL - PERIAPICAL EACH ADDITIONAL RADIOGRAPHIC IMAGE Routine 07/14/2025 8:00 AM EST Partial edentulism, unspecified edentulism class INTRAORAL - COMPLETE SERIES OF RADIOGRAPHIC IMAGES Routine 11/23/2023 11:00 AM EDT HP LINK DIABETIC FOOT EXAM Routine 08/10/2023 LAB COLOGUARD COLON CANCER SCREEN Routine 08/02/2023 9:00 PM EST Colon cancer screening LIPID PANEL, STANDARD Routine 01/01/2023 8:42 AM EDT Type 2 diabetes mellitus without complication, with long-term current use of insulin ([facility]) from Last 3 Months or Most Recently Relevant to Health Maintenance Results * Creatinine, Serum (08/14/2025 1:54 PM EST) Creatinine, Serum 1.03 0.5 - 1.4 mg/dL [facility] Estimated Glomerular Filt Rate >60 [facility] Comment:Chronic Kidney Disea se: Estimated GFR < 60 mL/min/1.33o4Cpanhp Kidney Disease: Estimated GFR < 15 mL/min/1.73m2 08/14/2025 1:54 PM EST 08/14/2025 1:54 PM EST us Generic External Data Provider LAB BLOOD ORDERAB LES Final Result Performing Organization Address [facility]/ZIP Co de Phone Number [facility] [address] [place] [phone] * (ABNORMAL) BUN (Blood Urea Nitrogen) (08/14/2025 1:54 PM EST) Urea Nitrogen (BUN) 23(H) 9 - 16 mg/dL [facility] 08/14/2025 1:54 PM EST 08/14/2025 1:54 PM EST us Generic External Data Provider LAB BLOOD ORDERAB LES Final Result Performing Organization Address [facility]/ZIP Co de Phone Number [facility] [address] [place] [phone] * (ABNORMAL) Electrolyte Panel (08/14/2025 1:54 PM EST) Sodium 132(L) 135 - 145 mmol/L [facility] Potassium 4.4 3.3 - 5.1 mmol/L [facility] Chloride 96 96 - 108 mmol/L [facility] Carbon Dioxide 27 22 - 29 mmol/L [facility] Anion Gap 13 12 - 20 [facility] 08/14/2025 1:54 PM EST 08/14/2025 1:54 PM EST Generic External Data Provider LAB BLOOD ORDERAB LES Final Result Performing Organization Address [facility] Co de Phone Number [facility] [address] [place] [phone] * (ABNORMAL) Hemoglobin A1c (08/14/2025 1:52 PM EST) Hemoglobin A1c 6.8(H) <6.0 % [facility] Comment:Hemoglobin A1C Refer ence Range Adults: 4.8 - 6.0 % Non diabetic: < 6.0 % Goal: < 7.0 %Additional Action Suggested: > 8.0 %Note: Hemoglobin A1c results are invalid for patients with abnormal amounts of HbF. Blood transfusions may impact the HbA1c concentration in the patient sample. Estimated Average Glucose 148 mg/dL [facility] Comment:eAG = Estimated ave rage glucose which is %A1C expressed asaverage glucose, using the formula of the G5J-YupxqqpYzxmopi Glucose study (ADAG), Diabetes Care, Vol.31,#8,Apr. 2007 08/14/2025 1:52 PM EST 08/14/2025 1:54 PM EST Generic External Data Provider LAB BLOOD ORDERAB LES Final Result Performing Organization Address [facility] Co de Phone Number [facility] [address] [place] [phone] * (ABNORMAL) Protein Creatinine Ratio, Urine (08/14/2025 1:50 PM EST) Creatinine, Urine 149.34 mg/dL [facility] Protein, Total, Random Urine 18(H) <12 mg/dL [facility] Protein/Creati nine Ratio, Ur 0.12 <0.2 [facility] Comment:The spot urine prote in:creatinine ratio may increase to 0.3during normal . 08/14/2025 1:50 PM EST 08/14/2025 2:49 PM EST us Generic External Data Provider LAB URINE ORDERAB LES Final Result [facility] [address] [place] [phone] * Diabetes Eye Exam (07/24/2025) us Historical Provider HEALTH MAINTENANCE Final Result * HP Diabetic Foot Exam (08/10/2023) Narrative Ofe Veras MD - 08/10/2023 R foot with decr sensitivity with monofilament testing, & tuning fork. Also mild deformity of toes us Ofe Veras MD HEALTH MAINTENANCE Final Resu lt * Cologuard?? colon cancer screening (08/02/2023 9:00 PM EST) Cologuard Result Negative Negative 08/11/20 4:15 AM EST [facility] (CLIA #:[id number]) Comment: NEGATIVE TEST RESULT. A negative Cologuard [...] colonoscopy. (Moshe Chambers, N Engl J Med 2014;370(14):6449-5843) The normal value (reference range) for this assay is negative. COLOGUARD RE-SCREENING RECOMMENDATION: Periodic colorectal cancer screening is an important part of preventive healthcare for asymptomatic individuals at average risk for colorectal cancer. Following a negative Cologuard result, the [place] [employer] and U.S. Multi-Society Task Force screening guidelines recommend a Cologuard re-screening interval of 3 years. References: [place] [employer] Guideline for Colorectal Cancer Screening: https://www.cancer.org/cancer/lgccu-uyiakd-bhjqgk/hbkcuolpc-eascnshzv-jqklgme/ac s-rec ommendations.html.; Romaine DK, Gila VEGA, Andrez SilverioK, Colorectal Cancer Screening: Recommendations for Physicians and Patients from the U.S. Multi-Society Task Force on Colorectal Cancer Screening , Am J Gastroenterology 2017; 112:8486-0809. TEST DESCRIPTION: Composite algorithmic analysis of stool [...] colonoscopy. (Moshe Chambers, N Engl J Med 2014;370(14):6952-2061.) Cologuard may produce a false negative or false positive result (no colorectal cancer or precancerous polyp present at colonoscopy follow up). A negative Cologuard test result does not guarantee the absence of CRC or advanced adenoma (pre-cancer). The current Cologuard screening interval is every 3 years. ([place] [employer] and U.S. Multi-Society Task Force). Cologuard performance data in a 10,000 patient pivotal study using colonoscopy as the reference method can be accessed at the following location: www.[employer]/results. Additional description of the Cologuard test process, warnings and precautions can be found at www.[employer].com. Stool specimen (specimen) 08/02/2023 9:00 PM EST 08/04/2023 7:12 PM EST us Ofe Veras MD LAB MOLECULAR DIAGNOSTICS ORD ERABLES Final Result [facility] (CLIA #:[id number]) [address] [place] [address], * (ABNORMAL) Lipid Panel, Standard (01/01/2023 8:42 AM EDT) Cholesterol, Total 133 <200 mg/dL [facility] HDL Cholesterol 37(L) > OR = 40 mg/dL [facility] Triglycerides 217(H) <150 mg/dL [facility] Comment: If a non-fasting specimen was collected, consider repeat triglyceride testing on a fasting specimen if clinically indicated. Destiny et al. J. of Clin. Lipidol. 2015;9:129-169. LDL Cholesterol 67 mg/dL (calc) [employer] [facility] Comment: Reference range: <100 Desirable range <100 mg/dL for primary prevention; <70 mg/dL for patients with CHD or diabetic patients with > or = 2 CHD risk factors. LDL-C is now calculated using the Kajal calculation, which is a validated novel method providing better accuracy than the Friedewald equation in the estimation of LDL-C. Mitchell CARDOZA et al. SAMIR. 2013;310(19): 5366-4891 (http://education.[employer]/faq/KLO640) Chol/HDLC Ratio 3.6 <5.0 (calc) [employer] [facility] Non-HDL Cholesterol 96 <130 mg/dL (calc) [facility] Comment: For patients with diabetes plus 1 [...] BLOOD ORDERABLES Final Re sult [facility] [address] [place] [address] [facility] [address] [place] [address] from Last 3 Months or Most Recently Relevant to Health Maintenance Additional Health Concerns Active Problems Noted Date Diagnosed Date Help patients manage their type 2 diabetes 07/16 Weekly blood pressure task 07/16/2025 Help patients manage their type 2 diabetes 07/16 Patient has chronic kidney disease 07/16/2025 Weekly blood pressure task 07/16/2025 Patient has chronic kidney disease 07/16/2025 Insurance [employer] MEDICARE REPLACEMENT HSN FULL DENTAL - HSN PARTIAL (MEDICAID)
--- OUTSIDE RECORDS SUMMARY | 2025-08-14 19:04 | XMS_ITS | Encounter Summary ---
Author Organization [employer] Address [address] [place] [address] Care Team Providers Care District Recruiter Name Role Phone Jelena Olsen MD Primary Care Pr ovider Reason for Visit * Reason Onset Date Comments prior authorization 08/04/2025 Accu-chek gu kylah me glucose meter Encounter Details Date Type Department Care Team (Late st Contact Info) Description 08/04/2025 Telephone Endocrinology - [address] [phone] [place] [address] [place] [address] Social History Tobacco Use Types Packs/Day Years [...] do you feel lonely or isolated from ose around you? Never 10/17/2024 Food Risk [...] care for your loved ones. For example, maternal child nurse or elderly care for an older [...] PM EST documented as of this encounter Progress Notes * Sherrill Velez MA - 08/06/2025 3:42 PM EST Prior Auth sent to patients pharmacy plan on Cover My Meds . * Estefany Loza - 08/04/2025 3:01 PM EST Endocrine Call Primary endocrine provider: Gaby Street PA-C Is the endocrine provider in the office toady?: yes Who is calling? A pharmacist: Pharmacy: [facility] Pharmacist Name: Pharmacy . If not the patient or parent/guardian please check for authorization to share/verbal release. Why is the person calling? Prior authorization. Medications or glucose meter supplies. Please routeto prior authorization pool (p [id number]). Which supply is the concern? Accu-chek guide me glucosemeter Prior Authorization for Medication-do not complete and send this encounter unless you have the fax from the pharmacy. Is this a Cover My Meds request: YES, two different codes were given: [id number] and [id number] Name of Medication Accu-chek guide me glucose meter Dose of Medication What is the RX # from the faxed refill? How does patient take this med? What Pharmacy did the fax come from: [facility] fax #: [phone] [employer] Information from fax: What Prescription Plan does the patient have? HSN Retail BIN/PCN if applicable: [id number] [facility] Cardholder ID: [id number] Person Code: Relationship Code: Help desk phone: [phone] documented in this encounter Plan of Treatment Upcoming Encounters Date Type Department Care Team (Late st Contact Info) Description 08/25/2025 10:15 AM EST Office Visit Endocrinology [address] [phone] [place] [address] 11/23/2025 9:15 AM EDT Office Visit Orthopedic Surgery - [place] [address] [facility] [address] [place] [address] Jarret Mcdowell, DPM [address] [facility] [address] [place] [address] documented as of this encounter Visit Diagnoses Not on filedocumented in this encounter Additional Health Concerns Assessment Noted Time PHQ-9 Depression Total Score: 0 10/17/19 8:55 AM EST documented as of this encounter Care Teams District Recruiter Relationship Specialty Start Date End Date Jelena Olsen MD [address], [place] PCP - General Internal Medicine 04/27/22 08/11/25 documented as of this encounter
== END 2025-08-14 13:38 | disposition home or self-care (01) ==
LOC: HO.LAB 13:37
PROVIDERS: PCP Family Medicine; Visit Provider Internal Medicine Nephrology
DX: I12.9 Hypertensive chronic kidney disease with stage 1 through stage 4 chronic kidney disease, or unspecified chronic kidney disease (principal); N18.31 Chronic kidney disease, stage 3a; E11.22 Type 2 diabetes mellitus with diabetic chronic kidney disease; E11.21 Type 2 diabetes mellitus with diabetic nephropathy
CPT/HCPCS: 36415; 80051; 82565; 82570; 83036; 84156; 84520

== ENCOUNTER 2025-08-26 09:11 | Outpatient (AMB) | payer MEDICARE, SELFPAY ==
--- OUTSIDE RECORDS SUMMARY | 2025-08-26 09:15 | XMS_ITS | Clinical Summary ---
Author Organization [address] Address [address] [place] [address] Phone Care Team Providers Care Electronic Data Interchange Specialist Name Role Phone Unavailable Primary Care Provider [...] lancetsIndications :Type 2 diabetes mellitus with microalbuminuria ([facility] V24, [facility] V28) Check blood sugar 1 times a day . Accu-check 100 each 11 025 2025 Active blood sugar diagnostic (Accu-Chek Guide test strips) test stripIndications:T ype 2 diabetes mellitus with microalbuminuria ([facility] V24, [facility] V28) Use to check BS daily 100 each 12 025 2025 Active blood-glucose meter (Accu-Chek Guide Glucose Meter) miscIndications:Ty pe 2 diabetes mellitus with microalbuminuria ([facility] V24, [facility] V28) Use to check BS daily 1 each 025 Active insulin glargine (Lantus Solostar U-100 Insulin) 100 unit/mL (3 mL) injection pen 10 units SC at units SC at bedtime 45 mL 3 025 Active blood-glucose sensor, Freestyle Leslie 3 Plus, (FreeStyle Leslie 3 Plus Sensor)Indications :Type 2 diabetes mellitus with microalbuminuria ([facility] V24, [facility] V28) Apply 1 sensor and change every 15 days. Change sensor every 15 days 6 each 1 025 Active blood-glucose,rece iver,cont (FreeStyle Leslie 3 [place]) miscIndications:Ty pe 2 diabetes mellitus with microalbuminuria ([facility] V24, [facility] V28) Used to monitor blood sugar 1 each 025 Active metFORMIN (GLUCOPHAGE) 1,000 mg tabletIndications: Type 2 diabetes mellitus with microalbuminuria ([facility] V24, [facility] V28) Take 1 tablet (1,000 mg total) by mouth 2 (two) times a day with meals.Take 1 tablet (1,000 mg total) by mouth 2 (two) times a day with meals. 180 tablet 3 025 Active pen needle, diabetic 32 gauge x 5/32 needleIndications: Type 2 diabetes mellitus with diabetic microalbuminuria, with long-term current use of insulin ([facility] V24, [facility] V28) Inject under the skin 1 (one) [...] microalbuminuria, with long-term current use of insulin ([facility] V24, [facility] V28) Inject under the skin 1 (one) time each day. DX: E11.29 R80.9 100 each 2 025 2024 Discontinued(R eorder) insulin glargine (Lantus Solostar U-100 Insulin) 100 unit/mL (3 mL) injection pen 10 units SC at egzalag04 units SC at bedtime 45 mL 3 [...] deviceIndications: Type 2 diabetes mellitus with microalbuminuria ([facility] V24, [facility] V28) Change sensor every 15 days 6 each 1 025 2024 Discontinued(R eorder) blood-glucose,rece iver,cont (FreeStyle Leslie 3 [place]) miscIndications:Ty pe 2 diabetes mellitus with microalbuminuria ([facility] [place], [facility] V28) Used to monitor blood sugar 1 each 025 2024 Discontinued(R eokarrieer) lancets (Nuclea BiotechnologiesTouch Delica Plus Lancet) 30 gaugeIndications:T ype 2 diabetes mellitus with other kidney complication, unspecified whether assisted insulin use ([facility] V24, [facility] V28) Use to check bs dailyUse to check bs daily 100 each 11 025 2024 Discontinued OneTouch Ultra Test test stripIndications:T ype 2 diabetes mellitus with other kidney complication, unspecified whether termite control servicer insulin use ([facility] V24, [facility] V28) Use to check bs dailyUse to check bs daily 100 each 11 025 2024 Discontinued blood-glucose meter (Hepregenuch Ultra2 Meter) miscIndications:Ty pe 2 diabetes mellitus with other kidney complication, unspecified whether termite control servicer insulin use ([facility] [place], [facility] V28) USE TO CHECK BLOOD SUGAR DAILY 1 each 1 025 2024 Discontinued metFORMIN (GLUCOPHAGE) 1,000 mg tabletIndications: Type 2 diabetes mellitus with microalbuminuria ([facility] V24, [facility] V28) Take 1 tablet (1,000 mg total) [...] 06/03/2024 Overview (06/03/2024): NOT TREATED (Jun 2019) [facility] Home Sleep Apnea Test: Date 05/11/2021; [...] Team Description 08/04/2025 Telephone Endocrinology - [address] [phone] [place] 07/31/2025 Telephone Endocrinology - [address] [phone] Sherrill Velez [place] 07/28/2025 Telephone Endocrinology - [address] [phone] Tod Austin [place] 07/27/2025 Telephone Endocrinology - [address] [phone] [place] 06/02/2025 Results Follow-Up Endocrinology - [address] [phone] [place] 05/27/2025 2:30 PM EDT Office Visit Endocrinology - [address] [phone] [place] Type 2 diabetes mellitus with stage 3 chronic kidney disease, unspecified whether assisted insulin use, unspecified whether stage 3a or 3b CKD ([facility] V24, [facility] V28) (Primary Dx) from Last 3 Months Immunizations Immunization Administration Dates Next Due Influenza Quadravalent, MDCK , 0.5ml, preservative free (Flucelvax) 6mo and older 09/18/2019,06/03/2018 Influenza trivalent, 0.5mL ( Fluzone High-dose) 65yo and older 08/01/2024,07/25/2023,06/05/2022,2020 Influenza trivalent, with preservative (Fluzone; Afluria) 6mo and older 07/30/2017,09/16/2014 Influenza, Unspecified 06/26/2022,2020,05/18/2016,2014 PPD Test 10/09/2018 Forrst SARS-CoV-2 COVID-19, mRNA, LNP-S, preservative free 12/29/2020,11/29/2020 [...] Date Site/Laterality Comments OTHER SURGICAL HISTORY PROCEDURE: GA RPR TUNICA VAGINALIS HYDROCELE BOTTLE TYPE; COMMENT: right testicle HERNIA REPAIR PROCEDURE: HISTORICAL HERNIA REPAIR/ING; COMMENT: bilateral KNEE SURGERY Right PROCEDURE: HISTORICAL KNEE SURGERY OTHER SURGICAL HISTORY PROCEDURE: HISTORICAL ARM SURGERY COLONOSCOPY 2011 PROCEDURE: HISTORICAL COLONOSCOPY; COMMENT: Date approximate, negative examination performed in [place] by history. COLONOSCOPY 07/31/2016 PROCEDURE: HISTORICAL COLONOSCOPY; COMMENT: Mild radiation proctitis. CHOLECYSTECTOMY 01/08/2018 PROCEDURE: LAPAROSCOPY, CHOLECYSTECTOMY Medical History Medical History Date Comments Dyslipidemia DX:Dyslipidemia HTN (hypertension) DX:HTN (hyper tension) Anxiety 09/21/2014 DX:Anxiety Nocturia 09/21/2014 DX:Nocturia Erectile dysfunction 09/21/2014 DX:Erectile dysfunction Hypertriglyceridemia 09/21/2014 DX:Hypertri glyceridemia DM (diabetes mellitus), type 2 with peripheral vascular complications ([facility] [place], [facility] V28) 09/21/2014 DX:DM (diabetes mellitus), type 2 with peripheral vascular complications ([facility]) Gout 10/08/2014 DX:Gout DJD (degenerative joint disease) of knee DX:DJD (degenerative joint disease) of knee YISEL (obstructive sleep apnea) DX :YISEL (obstructive sleep apnea) Bronchitis 04/07/2021 DX:Bronchitis GERD (gastroesophageal reflux disease) DX:GERD (gastroesophageal reflux disease) BPH (benign prostatic hyperplasia) 07/04/2021 DX:BPH (benign prostatic hyperplasia) B12 deficiency 12/28/2017 DX:B12 deficienc y CKD (chronic kidney disease) stage 3, GFR 30-59 ml/min ([facility] V24, [facility] V28) 02/25/2021 DX:CKD (chroni c kidney disease) stage 3, GFR 30-59 ml/min ([facility]) Depression with anxiety 01/12/2015 DX:Depre ssion with anxiety Normocytic anemia 01/19/2017 DX:Normocytic anemia Type 2 diabetes mellitus wit h renal complication ([facility] V24, [facility] V28) 02/25/2021 DX:Type 2 diab etes mellitus with renal complication ([facility]) Vitamin D deficiency 06/04/2018 DX:Vitamin D deficiency [...] care for your loved ones. For example, special needs child caregiver or elderly care for an older adult? [...] Care Team (Late st Contact Info) Description 11/23/2025 9:15 AM EDT Office Visit Orthopedic Surgery - [place] [address] [phone] Jarret Mcdowell, DPM [address] [phone] Health Maintenance Due Date Last Done Comments [...] 02/06/2025, 08/15/2024, 12/07/2023, Additional history exists Diabetes: Blood Sugar Control Test (HGBA1C) 02/12/2026 08/14/2025, 05/29/2025, 02/06/2025, Additional history exists Diabetes: Annual GFR (Glomerular [...] Procedure Name Priority Date/Time Associated Diagnosis Comments GA SLEEP STUDY ATTENDED 07/18/2025 HEMOGLOBIN A1C Routine 05/29/2025 8:02 AM EDT Type 2 diabetes mellitus with stage 3 chronic kidney disease, unspecified whether assisted insulin use, unspecified whether stage 3a or 3b CKD ([facility] V24, [facility] V28) POC GLUCOSE Routine 05/27/2025 2:49 PM EDT Type 2 diabetes mellitus with stage 3 chronic kidney disease, unspecified whether termite control servicer insulin use, unspecified whether stage 3a or 3b CKD ([facility] V24, [facility] V28) BASIC METABOLIC PANEL Routine 04/24/2025 8:06 AM EDT Chronic kidney disease, stage III (moderate) ([facility] V24, [facility] V28) Hyposmolality syndrome MICROALBUMIN CREATININE URINE RATIO Routine 02/06/2025 10:26 AM EDT Type 2 diabetes mellitus with other kidney complication, unspecified whether assisted insulin use ([facility] V24, [facility] V28) LIPID PANEL WITH REFLEX TO DIRECT LDL Routine 02/06/2025 10:26 AM EDT Type 2 diabetes mellitus with other kidney complication, unspecified whether assisted insulin use ([facility] V24, [facility] V28) FALLS RISK ASSESSMENT Routine 03/14/2024 DIABETES EYE EXAM Routine 08/15/2023 FIT-DNA Routine 08/02/2023 HEPATITIS C SCREENING Routine 09/17/2014 from Last 3 Months or Most Recently Relevant to Health Maintenance Results * General sleep study (07/18/2025) Provider [place] SLEEP CENTER ORDERABLES Final Result * (ABNORMAL) Hemoglobin A1c (05/29/2025 8:02 AM EDT) Hemoglobin A1C 7.2(H) <6.5 % LAB CHEMISTRY METHOD 05/29/2025 1:13 PM EDT [facility] Mean Bld Glu Estim. 160 mg/dL LAB CHEMISTRY METHOD 05/29/2025 1:13 PM EDT [facility] Blood Venous blood specimen / Unknown Venipuncture / Unknown 05/29/2025 8:02 AM EDT 05/29/2025 8:02 AM EDT Gaby CANAS LAB BLOOD ORDERABLES Final Result [facility] [address] [place] [address], [place] [phone] * POC glucose manually resulted (05/27/2025 2:49 PM EDT) Pathologist [facility] Glucose POC 227 mg/dL Blood Capillary blood specimen / Unknown 05/27/2025 2:49 PM EDT Gaby CANAS POINT OF CARE TEST ENTER/ED IT ORDERABLES Final Result * (ABNORMAL) Basic metabolic panel (04/24/2025 8:06 AM EDT) [facility] Sodium 138 133 - 145 mmol/L LAB CHEMISTRY METHOD 04/24/2025 9:41 AM [facility] Potassium 4.9 3.5 - 5.5 mmol/L LAB CHEMISTRY METHOD 04/24/2025 9:41 AM [facility] Chloride 103 96 - 110 mmol/L LAB CHEMISTRY METHOD 04/24/2025 9:41 AM [facility] CO2 27 21 - 32 mmol/L LAB CHEMISTRY METHOD 04/24/2025 9:41 AM [facility] Anion Gap 8 3 - 11 LAB CHEMISTRY METHOD 04/24/2025 9:41 AM [facility] Glucose 160(H) 70 - 100 mg/dL LAB CHEMISTRY METHOD 04/24/2025 9:41 AM [facility] BUN 22 5 - 25 mg/dL LAB CHEMISTRY METHOD 04/24/2025 9:41 AM EDT [facility] Creatinine 1.12 0.70 - 1.30 mg/dL LAB CHEMISTRY METHOD 04/24/2025 9:41 AM EDT [facility] eGFR 71 >=60 mL/min/1. 73m2 LAB CHEMISTRY METHOD 04/24/2025 9:41 AM T [facility] Comment:Calculation based on the Chronic Kidney Disease Epidemiology Collaboration (CKD-EPI) equation refit without adjustment for race. BUN/Creatinine Ratio 19.6 LAB CHEMISTRY METHOD 04/24/2025 9:41 AM T [facility] Calcium 9.2 8.5 - 10.5 mg/dL LAB CHEMISTRY METHOD 04/24/2025 9:41 AM [facility] Blood Venous blood specimen / Unknown Venipuncture / Unknown 04/24/2025 8:06 AM EDT 04/24/2025 8:58 AM EDT Hafsa Mathew NP LAB BLOOD ORDERABLES Final Result [facility] [address] [place] [address], * Lipid panel with reflex to direct LDL (02/06/2025 10:26 AM EDT) Cholesterol 138 0 - 200 mg/dL LAB CHEMISTRY METHOD 02/06/2025 2:29 PM T [facility] Triglycerides 139 0 - 150 mg/dL LAB CHEMISTRY METHOD 02/06/2025 2:29 PM [facility] HDL 43 >=40 mg/dL LAB CHEMISTRY METHOD 02/06/2025 2:29 PM T [facility] LDL Calculated 67 0 - 100 mg/dL LAB CHEMISTRY METHOD 02/06/2025 2:29 PM [facility] VLDL Cholesterol [place] 27.8 mg/dL LAB CHEMISTRY METHOD 02/06/2025 2:29 PM EDT [facility] Non HDL Chol. (LDL+VLDL) 95 <145 mg/dL LAB CHEMISTRY METHOD 02/06/2025 2:29 PM EDT [facility] Chol/HDL Ratio 3.2 0.0 - 4.4 LAB CHEMISTRY METHOD 02/06/2025 2:29 PM EDT [facility] Blood Venous blood specimen / Unknown Venipuncture / Unknown 02/06/2025 10:26 AM EDT 02/06/2025 10:26 AM EDT us Gaby CANAS LAB BLOOD ORDERABLES Final Result [facility] [address] [place] [address], [place] [phone] * (ABNORMAL) Microalbumin creatinine urine ratio (02/06/2025 10:26 AM EDT) Creatinine, Urine 137.0 mg/dL LAB CHEMISTRY METHOD 02/06/2025 1:31 PM EDT [facility] Microalb, Ur 119.0(H) 0.0 - 29.0 mg/L LAB CHEMISTRY METHOD 02/06/2025 1:31 PM EDT [facility] Microalb/Crea t Ratio 87(H) <30 mg/g creat LAB CHEMISTRY METHOD 02/06/2025 1:31 PM EDT [facility] Urine Urine specimen from urethra / Unknown Non-blood Collection / Unknown 02/06/2025 10:26 AM EDT 02/06/2025 10:26 AM EDT us Gaby CANAS LAB URINE ORDERABLES Final Result [facility] [address] [place] [address], [place] [phone] * Hm Falls Risk Assessment (03/14/2024) [facility] Falls Risk Assessment Abstracted Historical Provider HEALTH MAINTENANCE Final Result * Diabetes Eye Exam (08/15/2023) [facility] Diabetes: Annual Retina Eye Exam AbstractedAbstracted Historical Provider HEALTH MAINTENANCE Final Result * FIT-DNA (Cologuard) (08/02/2023) [facility] Colorectal Cancer Screening: FIT-DNA (Cologuard) No Interpretatio n, Abstraced [facility] Provider HEALTH MAINTENANCE Final Result * Hepatitis C Screening (09/17/2014) [facility] Hepatitis C Screening Abstracted Historical Provider HEALTH MAINTENANCE Final Result from Last 3 Months or Most Recently Relevant to Health Maintenance Insurance [employer] MEDICARE ADVANTAGE [place]ICAID - [place]
--- OUTSIDE RECORDS SUMMARY | 2025-08-26 09:15 | XMS_ITS | Encounter Summary ---
Author Organization [employer] Address [address] [place] [address] Care Team Providers Care Staffing Recruiter Name Role Phone Jelena Olsen MD Primary Care Pr ovider Reason for Visit * Reason Onset Date Comments OFFICE NOTES 07/27/2025 Encounter Details Date Type Department Care Team ([facility] Contact Info) Description 07/27/2025 Telephone [facility] [address] [place] [phone] [place] [address] [place] [address] Social History Tobacco Use Types Packs/Day Years [...] AM EDT Office Visit Orthopedic Surgery - [place] [address] [place] [phone] Jarret Mcdowell, DPM 175 [facility] [address] [place] [address] documented as of this encounter Visit Diagnoses Not on filedocumented in this encounter Additional Health Concerns Assessment Noted Time PHQ-9 Depression Total Score: 0 10/17/19 25 8:55 AM EST documented as of this encounter Care Teams Staffing Recruiter Relationship Specialty Start Date End Date Jelena Olsen MD [address] [facility], [place] PCP - General Internal Medicine 04/27/22 08/11/25 documented as of this encounter
--- OUTSIDE RECORDS SUMMARY | 2025-08-26 09:15 | XMS_ITS | Encounter Summary ---
Author Organization [employer] Address [address] [place] [address] Care Team Providers Care Forms Designer Name Role Phone Jelena Olsen MD Primary Care Pr ovider Reason for Visit * Reason Onset Date Comments prior authorization 08/04/2025 Accu-chek gu kylah me glucose meter Encounter Details Date Type Department Care Team (Late st Contact Info) Description 08/04/2025 Telephone Endocrinology - [address] [phone] [place] [address] [place] [address] Social History Tobacco Use Types Packs/Day Years [...] your loved ones. For example, child care worker or elderly care for an older [...] yes Who is calling? A pharmacist: Pharmacy: [facility] Pharmacist Name: Pharmacy . If not the patient or parent/guardian please check for authorization to share/verbal release. Why is the person calling? Prior authorization. Medications or glucose meter supplies. Please routeto prior authorization pool (p [id number]). Which supply is the concern? Accu-chek guide me glucosemeter Prior Authorization for Medication-do not complete and send this encounter unless you have the fax from the pharmacy. Is this a Cover My Meds request: YES, two different codes were given: [id number] and [id number] Name of Medication Accu-chek guide me glucose meter Dose of Medication What is the RX # from the faxed refill? How does patient take this med? What Pharmacy did the fax come from: [facility] fax #: [phone] [employer] Information from fax: What Prescription Plan does the patient have? HSN Retail BIN/PCN if applicable: [id number] [facility] Cardholder ID: [id number] Person Code: Relationship Code: Help desk phone: [phone] documented in this encounter Plan of Treatment Upcoming Encounters Date Type Department Care Team (Late st Contact Info) Description 11/23/2025 9:15 AM EDT Office Visit Orthopedic Surgery - [place] [address] [phone] Jarret Mcdowell, DPM 175 [facility] [address] [place] [address] documented as of this encounter Visit Diagnoses Not on filedocumented in this encounter Additional Health Concerns Assessment Noted Time PHQ-9 Depression Total Score: 0 10/17/19 25 8:55 AM EST documented as of this encounter Care Teams Forms Designer Relationship Specialty Start Date End Date Jelena Olsen MD [address] [facility], [place] PCP - General Internal Medicine 04/27/22 08/11/25 documented as of this encounter
--- OUTSIDE RECORDS SUMMARY | 2025-08-26 09:15 | XMS_ITS | Patient Health Record ---
Author Organization Aldair Alvarado MD [place] Address [address] [facility] [address] [place] [id number] Care Team Providers Care Tobacco Warehouse Manager Name Role Phone Aldair Alvarado Primary Care Provider [phone] Allergies No Known Allergies Reason For Referral [...] Status Risk Notes Problem Erectile dysfunction (disorder) (088442125) Male erectile dysfunction, unspecified (N52.9) Active confirmed Problem Type II diabetes mellitus without complication (775010473) Type 2 diabetes mellitus without complications (E11.9) Active confirmed Problem Essential hypertension (44411870) Essential (primary) hypertension (I10) Active confirmed Problem Mixed hyperlipidemia (859995779) Mixed hyperlipidemia (E78.2) Active confirmed Problem Vitamin D deficiency (38315423) Vitamin D deficiency, unspecified (E55.9) Active confirmed Problem 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) Active confirmed Problem Osteoarthritis of knee (461762488) Bilateral primary osteoarthritis of knee (M17.0) Active confirmed Problem Anxiety disorder (830287036) 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) Active confirmed Problem Lower urinary tract symptoms due to benign prostatic hypertrophy (59916930677774) Benign prostatic hyperplasia with lower urinary tract symptoms (N40.1) Active confirmed Problem Gastro-esophageal reflux disease without esophagitis (617070779) Gastro-esophageal reflux disease without esophagitis (K21.9) Active confirmed Problem Chronic kidney disease stage 3A (disorder) (996236904) Chronic kidney disease, stage 3a (N18.31) Active [...] Part B [address] [place] [phone] [id number] Lorenzo Russo Self - patient is the insured Medical (General) History Medical History History ICD Code Diabetes High cholesterol Hypertension Prostate problems Kidney disease Gout Surgical History Surgery Date(Month/Year) Hospitalization History Reason Date(Month/Year) Radiation for prostate cancer
--- OUTSIDE RECORDS SUMMARY | 2025-08-26 09:15 | XMS_ITS | Clinical Summary ---
Author Organization [facility] Address [address] [facility] [address] [place] [address] Phone Care Team Providers Care Black Top Machine Operator Name Role Phone Ofe Veras MD Primary Care Provider [phone] Allergies No known active allergies Medications cholecalciferol [...] TREATED (Jun 2019) NOT TREATED (Jun 2019) [facility] Home Sleep Apnea Test: Date [...] history exists Diabetes: Hemoglobin A1C 05/09/2025 025, 02/06/2025, 08/15/2024, Additional history exists Pneumococcal Vaccine: Peds (0 to 5 Years) and At-Risk Patients (6 to 49 Years) Discontinued 06/22/2021, 12/15/2015 Hepatitis B Vaccine Aged Out No longe r eligible based on patient's age to complete this topic Insurance [facility] MCR ([id number]) [facility] MCR ([id number]) Care Teams Black Top Machine Operator Relationship Specialty Start Date End Date Ofe Veras MD [address] [place] [id number] PCP - General Family Medicine 05/08/23
[2025-08-26 09:24] VITALS: BP 136/78; PULSE 71; O2SAT 98; BMI 26.4
--- NOTE | 2025-08-26 09:24 | HO.NEPHOV ---
Vital Signs 08/26/25 09:24 Height 5 ft 11 in Weight 189 lb BMI 26.4 BP 136/78 Blood Pressure Location Lt brachial Position Sitting Pulse 71 Pulse Source Pulse Oximeter Pulse Oximetry (%) 98 Oxygen Delivery Method Room Air Intake Visit Reasons: R/S 07/01/2025 Supervisor Seaming Required: No Accompanied by: Spouse Allergies No Known Allergies Allergy (Verified 08/26/25 09:28) HPI Comments Details: Lorenzo was seen in follow up for diabetic nephropathy. He has been followed closely followed by Endocrinology. He denies hypoglycemias. He is on ACEI. He is not on any SGLT2 i. He denies CAD, CVA, CHF, PAD, edema or carotid stenosis. He does not take any NSAID's and maintain good hydration. His serum potassium has been normal. His serum sodium has been normal. He did not have any specific complaints at the time of this office visit. [facility] Medical History (Updated 04/27/25 @ 13:18 by Tex Lynch MD) Nocturia Erectile dysfunction B12 deficiency Vitamin D deficiency CKD stage G2/A2, GFR 60-89 and albumin creatinine ratio 30-299 mg/g Bronchitis Epididymal cyst Spondylolisthesis at L5-S1 level DJD (degenerative joint disease) BPH (benign prostatic hyperplasia) Anxiety Depression Dyslipidemia GERD (gastroesophageal reflux disease) Gout Hypertension History of prostate cancer Obstructive sleep apnea Type 2 diabetes mellitus Review of Systems Const All systems reviewed & are unremarkable except as noted in HPI and below Physical Exam Vital Signs: Last Vital Signs Pulse 71 08/26/25 09:24 BP 136/78 08/26/25 09:24 Pulse Ox 98 08/26/25 09:24 Oxygen Delivery Method Room Air 08/26/25 09:24 BMI result Body Mass Index 26.4 Const General: comfortable and no acute distress Orientation/consciousness: patient oriented x3 HEENT Head: Yes normocephalic Mouth: Normal oral and palatal mucosa present Eyes EOM: EOMs intact bilaterally Neck Neck: Yes supple Resp Auscultation: clear to auscultation bilaterally Cardio Jugular venous distension: no JVD Rate: regular rate GI Palpation (GI): Soft to palpation Auscultation: normal bowel sounds General: Yes no CVA tenderness Back/Spine/Pelvis Back: no CVA tenderness Skin General skin exam: no rashes or lesions noted Neuro General: patient oriented x3 and moves all extremities Extrem General: Yes no pedal edema Results Reviewed Nephrology Results: Sodium, (135-145) 132 mmol/L L 08/14/25 Potassium, (3.3-5.1) 4.4 mmol/L 08/14/25 Chloride, (96-108) 96 mmol/L 08/14/25 Carbon Dioxide, (22-29) 27 mmol/L 08/14/25 BUN, (9-16) 23 mg/dL H 08/14/25 Creatinine, (0.5-1.4) 1.03 mg/dL 08/14/25 Urine Creatinine 149.34 mg/dL 08/14/25 Protein/Creatinin Ratio, (<0.2) 0.12 08/14/25 Assessment & Plan Assessment & Plan (1) Hypertension: Code(s): I10 - Essential (primary) hypertension Category: Medical Qualifiers: Hypertension type: primary hypertension Qualified Code(s): I10 - Essential (primary) hypertension (2) Diabetic nephropathy: Code(s): E11.21 - Type 2 diabetes mellitus with diabetic nephropathy Category: Medical Qualifiers: Diabetes mellitus type: type 2 Qualified Code(s): E11.21 - Type 2 diabetes mellitus with diabetic nephropathy (3) CKD (chronic kidney disease) stage 3, GFR 30-59 ml/min: Code(s): N18.30 - Chronic kidney disease, stage 3 unspecified Category: Medical Qualifiers: Chronic kidney disease stage 3 subtype: stage 3a (GFR 45-59) Qualified Code(s): N18.31 - Chronic kidney disease, stage 3a (4) Hyponatremia: Code(s): E87.1 - Hypo-osmolality and hyponatremia Category: Medical Plan Lorenzo has Diabetic nephropathy. He is on ACEI. His serum K has been normal. He is on Jardiance which he is tolerating well. His renal functions are stable and his BP is at goal. He should maintain good hydration and continue to avoid NSAID's. All these have explained in detail. Follow up labs ordered and answered all questions. Orders: Orders Electrolytes 6 Months E11.21 - Type 2 diabetes mellitus with diabetic nephropathy, E87.1 - Hypo-osmolality and hyponatremia, I10 - Essential (primary) hypertension, N18.31 - Chronic kidney disease, stage 3a Blood Urea Nitrogen 6 Months E11.21 - Type 2 diabetes mellitus with diabetic nephropathy, E87.1 - Hypo-osmolality and hyponatremia, I10 - Essential (primary) hypertension, N18.31 - Chronic kidney disease, stage 3a Creatinine 6 Months E11.21 - Type 2 diabetes mellitus with diabetic nephropathy, E87.1 - Hypo-osmolality and hyponatremia, I10 - Essential (primary) hypertension, N18.31 - Chronic kidney disease, stage 3a Coding Level of Care Code Est Pt Level 4 (32576) Diagnoses Primary hypertension I10 Hypertension type: primary hypertension Diabetic nephropathy associated with type 2 diabetes mellitus E11. Diabetes mellitus type: type 2 Stage 3a chronic kidney disease N18.31 Chronic kidney disease stage 3 subtype: stage 3a (GFR 45-59) Hyponatremia E87.1
== END 2025-08-26 09:40 | disposition home or self-care (01) ==
LOC: HO.HKA 09:12
PROVIDERS: Visit Provider Internal Medicine Nephrology
DX: I10 Essential (primary) hypertension (principal); E11.21 Type 2 diabetes mellitus with diabetic nephropathy; N18.31 Chronic kidney disease, stage 3a; E87.1 Hypo-osmolality and hyponatremia
CPT/HCPCS: 99214

== ENCOUNTER → 2025-08-26 09:11 | Outpatient (BNVA) | payer MEDICARE, SELFPAY | PROVIDERS: Visit Provider Internal Medicine Nephrology | DX: I12.9 Hypertensive chronic kidney disease with stage 1 through stage 4 chronic kidney disease, or unspecified chronic kidney disease (principal); E11.22 Type 2 diabetes mellitus with diabetic chronic kidney disease; N18.31 Chronic kidney disease, stage 3a; E87.1 Hypo-osmolality and hyponatremia; Z79.84 Long term (current) use of oral hypoglycemic drugs | CPT/HCPCS: 99212 ==